=== PATIENT | male | born 1965 | race Caucasian/White ===

== ENCOUNTER 2017-01-07 15:10 | Inpatient (IN) | payer OTHER ==
[~2017-01-07] VITALS: Ht 172.7 cm; Wt 97.1 kg
[2017-01-07] MEDS ORDERED: KETOROLAC TROMETHAMINE 30 MG/ML VIAL IV STA (17:35)
[2017-01-07] MEDS ORDERED: SODIUM CHLORIDE 0.9% 1000ML 1,000 ML IV STA (17:35)
[2017-01-07] MEDS ORDERED: ONDANSETRON INJ 2 MG/ML 2 ML VIAL IV STA (17:35)
[2017-01-07] MEDS ORDERED: ALBUT/IPRATROP 3MG/0.5MG NEB 3 ML VIAL INH ONE (17:45)
--- NOTE | 2017-01-07 18:01 | EMERGENCY ROOM VISIT NOTE ---
History Report prepared by [place]: Pearl Quinones Under the Supervision of: Dr. Clark Knapp M.D. First contact with patient: 17:27 Chief Complaint: FLU LIKE SX Stated Complaint: VOMITING, FEVER, BODY ACHES, FLUE LIKE SX History of Present Illness The patient is a 51 year old male who presents to the Emergency Room with complaints of a persistent illness that began Saturday. He currently rates his discomfort as a 3/10 in severity. Per the patient's sister, the patient began getting sick Saturday and notes that it has persisted. She states that the patient has had a headache, vomiting, nausea, and a fever. The patient states that he has taken Ibuprofen and Tylenol for his Fever. The patient denies any abdominal pain or neck pain. He localizes his headache to behind his eyes and states that he has had similar headaches in the past. The patient stats that he was supposed to have a surgery this today, but states that he had to cancel due to his symptoms. Source of History: patient, family (sister) Onset: Saturday Position: other (global) Symptom Intensity: 3/10 Quality: other (illness) Timing: other (persistent) Associated Symptoms: + fevers, + headache, + nausea, + vomiting, No abdominal pain, No neck pain Review of Systems See HPI for pertinent positives & negatives. A total of 10 systems reviewed and were otherwise negative. Past Medical & Surgical Medical Problems: (1) Chronic hepatitis C (2) Depression (3) History of MRSA infection of lungs (4) History of septic embolism (5) History of SIADH (6) Nocturnal hypoxia (7) Thyroid nodule (8) Tobacco use disorder Surgical Problems: (1) History of dental surgery (2) History of laryngoscopy (3) History of left hip replacement (4) History of open reduction and internal fixation (ORIF) procedure (5) S/p alveoloplasty (6) S/p excision of tongue lesion (7) S/p thoracoscopy (8) S/P tonsillectomy (9) Status post tracheostomy Family History Cancer Gallbladder disease Heart disease Hypertension Kidney disease Kidney stones Seizures Social History Smoking Status: Never Smoker Alcohol Use: none Marital Status: Housing Status: lives alone Occupation Status: unemployed Current/Historical Medications Scheduled Bupropion (Wellbutrin Sr), 150 MG PO BID Diclofenac (Voltaren), 75 MG PO BIDM Multivitamin (Multivitamin), 1 TAB PO DAILY Omeprazole (Omeprazole), 20 MG PO BID Triamterene/Hctz (Triamterene/Hctz 37.5-25MG), 1 TAB PO DAILY Miscellaneous Medications Buprenorphine Hcl-Naloxone Hcl (Suboxone 8-2 Mg) Allergies Coded Allergies: No Known Allergies (Unverified , 01/07/17) Physical Exam Vital Signs Date Time Temp Pulse Resp B/P Pulse Ox O2 Delivery O2 Flow Rate FiO2 01/07/17 19:30 124/62 01/07/17 19:10 124 15 91 01/07/17 19:00 109/74 01/07/17 18:52 93 Nasal Cannula 4.0 01/07/17 18:48 39.5 128 20 114/72 81 Room Air 01/07/17 18:48 114/72 01/07/17 18:40 132 18 83 01/07/17 18:36 136 22 138/91 88 Nebulizer 15.0 01/07/17 18:34 138/91 01/07/17 18:30 135/75 01/07/17 18:11 129 01/07/17 18:10 129 20 95 01/07/17 18:00 116/81 01/07/17 17:54 97 Room Air 01/07/17 17:54 97 Room Air 01/07/17 15:23 39.3 135 20 139/79 96 Room Air Physical Exam GENERAL: Patient is a healthy-appearing well-nourished HEAD: Normocephalic atraumatic EYES: Ocular movements intact pupils equal and react to light OROPHARYNX mucous membranes are moist no exudates present no erythema or edema present NECK: No evidence of meningitis or encephalitis on exam. Supple no nuchal rigidity CHEST: Good equal expansion LUNGS: Clear and equal to auscultation CARDIAC: Normal S1 and S2 ABDOMEN: Soft nontender no guarding BACK: No CVA tenderness EXTREMITIES: No pain upon palpation normal muscle strength in all groups no clubbing cyanosis or edema NEURO: Patient is following commands is answering questions appropriately. Alert and oriented x3 Cranial Nerves 2-12 grossly intact Medical Decision & Procedures ER Provider Diagnostic Interpretation: X-ray results as stated below per interpretation by me and the radiologist: CHEST ONE VIEW PORTABLE CLINICAL HISTORY: Pt c/o cough dyspnea COMPARISON STUDY: 04/05/2013 FINDINGS: Development of a parenchymal infiltrate in the right midlung. Potential parenchymal infiltrative changes in medial left base. Lungs otherwise appear clear. IMPRESSION: Bibasilar parenchymal infiltrative change Electronically signed by: Nithin Fiore M.D. 01/07/2017 6:04 PM Dictated Date/Time: 01/07/2017 6:04 PM Laboratory Results Test 01/07/17 18:12 01/07/17 18:31 Influenza Type A (RT-PCR) Neg for Influ A (NEG) Influenza Type A Antigen Neg for Influ A (NEG) Influenza Type B Antigen Neg for Influ B (NEG) Influenza Type B (RT-PCR) Neg for Influ B (NEG) Immature Granulocyte % (Auto) 0.3 % White Blood Count 10.89 K/uL (4.8-10.8) Red Blood Count 4.51 M/uL (4.7-6.1) Hemoglobin 13.2 g/dL (14.0-18.0) Hematocrit 38.5 % (42-52) Mean Corpuscular Volume 85.4 fL (80-100) Mean Corpuscular Hemoglobin 29.3 pg (25-34) Mean Corpuscular Hemoglobin Concent 34.3 g/dl (32-36) Platelet Count 191 K/uL (130-400) Mean Platelet Volume 10.0 fL (7.4-10.4) Neutrophils (%) (Auto) 82.3 % Lymphocytes (%) (Auto) 12.5 % Monocytes (%) (Auto) 4.9 % Eosinophils (%) (Auto) 0.0 % Basophils (%) (Auto) 0.0 % Neutrophils # (Auto) 8.97 K/uL (1.4-6.5) Lymphocytes # (Auto) 1.36 K/uL (1.2-3.4) Monocytes # (Auto) 0.53 K/uL (0.11-0.59) Eosinophils # (Auto) 0.00 K/uL (0-0.5) Basophils # (Auto) 0.00 K/uL (0-0.2) Immature Granulocyte # (Auto) 0.03 K/uL (0.00-0.02) Prothrombin Time 11.7 SECONDS (9.0-12.0) Prothromb Time International Ratio 1.1 (0.9-1.1) Activated Partial Thromboplast Time 29.9 SECONDS (21.0-31.0) Partial Thromboplastin Ratio 1.2 Labs reviewed by ED physician. Medications Administered Medications (Trade) Dose Ordered Sig/Adelita Route Start Time Stop Time Status Last Admin Dose Admin Sodium Chloride (Nss 1000ml) 1,000 ml @ 999 mls/hr Q1H1M STAT IV 01/07/17 17:35 01/07/17 18:35 DC 01/07/17 17:52 999 MLS/HR Ketorolac Tromethamine (Toradol Inj) 30 mg NOW STAT IV 01/07/17 17:35 01/07/17 17:38 DC 01/07/17 17:52 30 MG Ondansetron HCl (Zofran Inj) 4 mg NOW STAT IV 01/07/17 17:35 01/07/17 17:38 DC 01/07/17 17:52 4 MG Albuterol/ Ipratropium (Duoneb) 12 ml ONE ONCE INH 01/07/17 17:45 01/07/17 17:46 DC 01/07/17 17:52 12 ML Doxycycline Hyclate (Vibramycin Cap) 100 mg ONE STAT PO 01/07/17 18:07 01/07/17 18:13 DC 01/07/17 19:23 100 MG Acetaminophen (Tylenol Tab) 1,000 mg NOW STAT PO 01/07/17 18:48 01/07/17 18:49 DC 01/07/17 19:24 1,000 MG Piperacillin Sod/ Tazobactam Sod (Zosyn Iv) 4.5 gm NOW STAT IV 01/07/17 19:17 01/07/17 19:19 DC 01/07/17 20:25 4.5 GM Levofloxacin (Levaquin / D5W) 750 mg NOW ONCE IV 01/07/17 19:30 01/07/17 19:31 DC 01/07/17 20:24 750 MG ECG Rate (beats per minute): 118 Rhythm: sinus tachycardia Findings: RBBB, no acute ischemic change, no ectopy Comparison ECG Date: 04/05/13 Change: EKG Change: When compared to EKG done on 04/05/13 Right Bundle Branch Block is new. ED Course 1731: Past medical records reviewed. The patient was evaluated in room B5. A complete history and physical examination was performed. 1735: Ordered Zofran Inj 4 mg IV, Toradol Inj 30 mg IV, Sodium Chloride 1000 ml @ 999 mls/hr IV. 1745: Ordered Duoneb 12 ml INH. 180: Ordered Vibramycin Cap 100 mg PO. 1848: Ordered Tylenol Tab 1000 mg PO. 1900: I reevaluated the patient and he is resting comfortably. I discussed the exam findings with him and I discussed the treatment plan. He verbalized complete understanding and agreement. He will be evaluated for further treatment. 1916: Ordered Zosyn IV 4.5 gm IV. 1927: I discussed the patients case with Catrachito De Santiago. He is going to evaluate the patient for further treatment. 1929: Ordered Levofloxacin 750 mg IV. Medical Decision Differential diagnosis: Etiologies such as viral syndrome, otitis, pharyngitis, pneumonia, influenza, meningitis, urinary tract infection, sepsis, bacteremia, as well as others were entertained. This is a 51-year-old male who presents emergency department complaining of shortness of breath. The patient does appear to have pneumonia on his chest x- ray. I did discuss case with the hospitalist service who agreed to admit the patient. Patient was pancultured and started on antibiotics. Patient family were in agreement with treatment plan. Consults Time Called: 1914 Consulting Physician: Catrachito De Santiago Returned Call: 1927 I discussed the patients case with Catrachito De Santiago. He is going to evaluate the patient for further treatment. Impression Primary Impression: Pneumonia Scribe Attestation The scribe's documentation has been prepared under my direction and personally reviewed by me in its entirety. I confirm that the note above accurately reflects all work, treatment, procedures, and medical decision making performed by me. Departure Information Dispostion Being Evaluated By Hospitalist Referrals Nithin Cifuentes M.D. (PCP) Problem Qualifiers Primary Impression: Pneumonia Pneumonia type: due to unspecified organism Laterality: unspecified laterality Lung location: unspecified part of lung Qualified Codes: J18.9 - Pneumonia, unspecified organism
--- NOTE | 2017-01-07 18:05 | DIAGNOSTIC IMAGING REPORT ---
CHEST ONE VIEW PORTABLE CLINICAL HISTORY: Pt c/o cough dyspnea COMPARISON STUDY: 04/05/2013 FINDINGS: Development of a parenchymal infiltrate in the right midlung. Potential parenchymal infiltrative changes in medial left base. Lungs otherwise appear clear. IMPRESSION: Bibasilar parenchymal infiltrative change Electronically signed by: Nithin Fiore M.D. 01/07/2017 6:04 PM Dictated Date/Time: 01/07/2017 6:04 PM
[2017-01-07] MEDS ORDERED: DOXYCYCLINE HYCLATE 100 MG CAP PO STA (18:07)
[2017-01-07] MEDS ORDERED: MULT-506 PO (18:39)
[2017-01-07] MEDS ORDERED: BUPR-79 PO (18:39)
[2017-01-07] MEDS ORDERED: TRIATAB3 PO (18:39)
[2017-01-07] MEDS ORDERED: DICL-201 PO (18:39)
[2017-01-07 18:44] LABS: COMPLETE YES; HEMATOCRIT 38.5 % (42-52); IG% 0.3 %; LYMPH % 12.5 %; LYMPH ABS # 1.36 K/uL (1.2-3.4); MEAN CELL VOLUME 85.4 fL (80-100); MEAN CORPUSCULAR HEMOGLOBIN 29.3 pg (25-34); MEAN CORPUSCULAR HGB CONC 34.3 g/dl (32-36); MONO % 4.9 %; NEUT % 82.3 %; PLATELET COUNT 191 K/uL (130-400); RED BLOOD COUNT 4.51 M/uL (4.7-6.1); WHITE BLOOD COUNT 10.89 K/uL (4.8-10.8)
[2017-01-07] MEDS ORDERED: ACETAMINOPHEN 500 MG TAB PO STA (18:48)
[2017-01-07 19:05] LABS: BUN/CREATININE RATIO 14.4 (10-20); CALCIUM 8.3 mg/dl (8.5-10.1); CREATININE 1.4 mg/dl (0.60-1.40); POTASSIUM 3.3 mmol/L (3.5-5.1)
[2017-01-07 19:08] LABS: ALB/GLOB RATIO 0.9 (0.9-2)
[2017-01-07] MEDS ORDERED: PIPERACILLIN/TAZOBACTAM 4.5 GM/100ML D5W IV STA (19:17)
[2017-01-07] MEDS ORDERED: LEVAQUIN 750MG / 150ML D5W IV ONE (19:30)
[2017-01-07] MEDS ORDERED: ONDANSETRON INJ 2 MG/ML 2 ML VIAL IV PRN (19:45)
--- NOTE | 2017-01-07 19:51 | History and Physical ---
History & Physical Date & Time of Service: Jan 07, 2017 at 19:51 . Chief Complaint: Fever, cough, shortness of breath . Primary Care Physician: Nithin Cifuentes M.D. . History of Present Illness Source: patient, clinic records, hospital records 51-year-old male followed by Dr. Cifuentes. History of hypertension and hepatitis C. Prolonged critical illness in 2012 due to sepsis from septic pulmonary emboli. Developed fever and cough about 3 days prior to admission. Cough productive of green sputum. Now experiencing fever, chills, sweats, worsening dyspnea. Chest pain with coughing. Some nausea without emesis; no diarrhea. . Past Medical/Surgical History Chronic and Resolved Medical Problems: (1) Chronic hepatitis C Status: Chronic (2) Depression Status: Chronic (3) History of MRSA infection of lungs Status: Chronic (4) History of septic embolism Status: Chronic (5) History of SIADH Status: Chronic (6) Nocturnal hypoxia Status: Chronic (7) Thyroid nodule Status: Chronic (8) Tobacco use disorder Status: Chronic Surgical Problems: (1) History of dental surgery Status: Chronic (2) History of laryngoscopy Permanent Comment: laryngoscopy removal tumor microscope and reconstruction Status: Chronic (3) History of left hip replacement Status: Resolved (4) History of open reduction and internal fixation (ORIF) procedure Status: Chronic (5) S/p alveoloplasty Status: Chronic (6) S/p excision of tongue lesion Status: Chronic (7) S/p thoracoscopy Permanent Comment: thoracoscopy surgical partial pulmonary decortication Status: Chronic (8) S/P tonsillectomy Status: Chronic (9) Status post tracheostomy Status: Chronic . Family History Cancer Gallbladder disease Heart disease Hypertension Kidney disease Kidney stones Seizures Social History Smoking Status: Current Every Day Smoker Alcohol Use: in past Marital Status: Housing status: lives with family Occupational Status: unemployed Immunizations History of Influenza Vaccine: Unknown History of Tetanus Vaccine?: Unknown History of Pneumococcal: Unknown History of Hepatitis B Vaccine: Unknown Multi-Drug Resistant Organisms History of MDRO: Yes Type of MDRO: MRSA Allergies Coded Allergies: No Known Allergies (Unverified , 01/07/17) Home Medications Scheduled Bupropion (Wellbutrin Sr), 150 MG PO BID Diclofenac (Voltaren), 75 MG PO BIDM Multivitamin (Multivitamin), 1 TAB PO DAILY Omeprazole (Omeprazole), 20 MG PO BID Triamterene/Hctz (Triamterene/Hctz 37.5-25MG), 1 TAB PO DAILY Miscellaneous Medications Buprenorphine Hcl-Naloxone Hcl (Suboxone 8-2 Mg) Review of Systems Constitutional: + chills, + fatigue, + fever, + sweats, No weight loss Eyes: No diplopia, No worsening of vision ENT: + nasal symptoms, + sore throat, No hearing loss Respiratory: + cough, + shortness of breath, + sputum, + wheezing Cardiovascular: No chest pain, No edema Abdomen: + nausea, No GI bleeding, No diarrhea, No vomiting Musculoskeletal: + muscle pain, + problem reported (chronic back pain) Genitourinary - Male: No dysuria, No hematuria Endocrine: + fatigue, No excessive thirst, No excessive urination Hematologic / Lymphatic: No abnormal bleeding/bruising, No swollen lymph nodes Integumentary: No new/changing skin lesions, No rash Physical Exam Vital Signs Date Time Temp Pulse Resp B/P Pulse Ox O2 Delivery O2 Flow Rate FiO2 01/07/17 18:52 93 Nasal Cannula 4.0 01/07/17 18:48 39.5 128 20 114/72 81 Room Air 01/07/17 18:36 136 22 138/91 88 Nebulizer 15.0 01/07/17 18:11 129 01/07/17 17:54 97 Room Air 01/07/17 17:54 97 Room Air 01/07/17 15:23 39.3 135 20 139/79 96 Room Air General Appearance: WD/WN, + moderate distress Head: normocephalic, atraumatic Eyes: normal inspection, PERRL, EOMI, sclerae normal ENT: + pertinent finding (edentulous, pharyngeal erythema) Neck: supple, no adenopathy, thyroid normal, no JVD, trachea midline, + pertinent finding (healed tracheostomy scar) Respiratory/Chest: + accessory muscle use, + rhonchi, + wheezing Cardiovascular: regular rate, rhythm, no edema, no gallop, no JVD, no murmur, + tachycardia Abdomen/GI: normal bowel sounds, non tender, soft, no organomegaly, no pulsatile mass Extremities/Musculoskelatal: normal inspection, no calf tenderness, no pedal edema Neurologic/Psych: health and wellness instructor II-XII nml as tested (PERRL, EOMI, no facial palsy, no dysarthria), alert, oriented x 3 Skin: no rash, + diaphoresis Lymphatic: no adenopathy Diagnostics Laboratory Results Results Past 24 Hours Test 01/07/17 18:12 01/07/17 18:31 Range/Units Influenza Type A Antigen Neg for Influ A NEG Influenza Type B Antigen Neg for Influ B NEG White Blood Count 10.89 4.8-10.8 K/uL Red Blood Count 4.51 4.7-6.1 M/uL Hemoglobin 13.2 14.0-18.0 g/dL Hematocrit 38.5 42-52 % Mean Corpuscular Volume 85.4 80-100 fL Mean Corpuscular Hemoglobin 29.3 25-34 pg Mean Corpuscular Hemoglobin Concent 34.3 32-36 g/dl Platelet Count 191 130-400 K/uL Mean Platelet Volume 10.0 7.4-10.4 fL Neutrophils (%) (Auto) 82.3 % Lymphocytes (%) (Auto) 12.5 % Monocytes (%) (Auto) 4.9 % Eosinophils (%) (Auto) 0.0 % Basophils (%) (Auto) 0.0 % Neutrophils # (Auto) 8.97 1.4-6.5 K/uL Lymphocytes # (Auto) 1.36 1.2-3.4 K/uL Monocytes # (Auto) 0.53 0.11-0.59 K/uL Eosinophils # (Auto) 0.00 0-0.5 K/uL Basophils # (Auto) 0.00 0-0.2 K/uL RDW Standard Deviation 40.7 36.4-46.3 fL RDW Coefficient of Variation 13.1 11.5-14.5 % Immature Granulocyte % (Auto) 0.3 % Immature Granulocyte # (Auto) 0.03 0.00-0.02 K/uL Sodium Level 137 136-145 mmol/L Potassium Level 3.3 3.5-5.1 mmol/L Chloride Level 97 98-107 mmol/L Carbon Dioxide Level 30 21-32 mmol/L Anion Gap 10.0 3-11 mmol/L Blood Urea Nitrogen 20 7-18 mg/dl Creatinine 1.40 0.60-1.40 mg/dl Est Creatinine Clear Calc Drug Dose 70.0 ml/min Estimated GFR () 67.4 Estimated GFR (Non- 58.2 BUN/Creatinine Ratio 14.4 10-20 Random Glucose 113 70-99 mg/dl Calcium Level 8.3 8.5-10.1 mg/dl Total Bilirubin 1.1 0.2-1 mg/dl Aspartate Amino Transf (AST/SGOT) 33 15-37 U/L Alanine Aminotransferase (ALT/SGPT) 40 12-78 U/L Alkaline Phosphatase 89 45-117 U/L Total Protein 7.8 6.4-8.2 gm/dl Albumin 3.6 3.4-5.0 gm/dl Globulin 4.2 2.5-4.0 gm/dl Albumin/Globulin Ratio 0.9 0.9-2 Microbiology Results 01/07/17 Blood Culture, Evelyn Batch Pending 01/07/17 Blood Culture, Evelyn Batch Pending Diagnostic Radiology CHEST ONE VIEW PORTABLE CLINICAL HISTORY: Pt c/o cough dyspnea COMPARISON STUDY: 04/05/2013 FINDINGS: Development of a parenchymal infiltrate in the right midlung. Potential parenchymal infiltrative changes in medial left base. Lungs otherwise appear clear. IMPRESSION: Bibasilar parenchymal infiltrative change Electronically signed by: Nithin Fiore M.D. 01/07/2017 6:04 PM CHEST CTA for PULMONARY ARTERIES CT DOSE: 443.61 mGy.cm HISTORY: Chest pain dyspnea. Pneumonia. TECHNIQUE: Multiaxial CT images of the chest were performed following the intravenous administration of contrast to evaluate the pulmonary arteries. Maximal intensity projection images were also obtained. COMPARISON STUDY: None. FINDINGS: There is a normal caliber thoracic aorta with no evidence for dissection. There is no evidence for pulmonary embolus. Moderate mediastinal and hilar julia change is present. Superior mediastinal nodes measure 1.5 cm. Nodes measuring 12 mm are present bilaterally there are parenchymal infiltrate or consolidative changes right midlung. There is a 6 mm parenchymal nodule right upper lung. There are consolidative parenchymal infiltrates involving the right and to lesser extent left lung base. Limited evaluation the upper abdomen is unremarkable. IMPRESSION: 1. Study is negative for pulmonary embolus. 2. Consolidative infiltrates right midlung, right base, and to lesser extent left base. 3. mediastinal and hilar adenopathy is considered significant. Although it is potentially reactive, a follow-up CT at appropriate time interval is felt to be mandatory to exclude an underlying neoplastic process. Electronically signed by: Nithin Fiore M.D. 01/07/2017 10:30 PM . EKG EKG performed at 17:[address] at 120 / minute, RBBB, NSSTTWA's. RBBB old- present on tracing in clinic 05/08/16. . Impression Assessment and Plan PNEUMONIA / SEPSIS Acutely ill- fever, tachycardia. Meets criteria for sepsis per 2001 definition and current CMS guidelines. Not hypotensive. Serum lactate 0.83. Received IV fluid resuscitation in ED. Blood cultures obtained. Check sputum gram stain, C&S. Received IV levofloxacin and piperacillin / tazobactam in ED which will be continued. Check nasal MRSA screen. Add MRSA coverage if MRSA screen positive. ACUTE HYPOXIC RESPIRATORY FAILURE Tachypneic, using accessory muscles of respiration. RR as high as 26. O2 sats as low as 81% on RA. Supplemental O2 as needed. Levalbuterol / ipratropium nebs for bronchospasm. HYPOKALEMIA Serum K 3.3. Hypokalemia probably due to HCTZ. IV repletion (lactated Ringer's). Follow. HYPERTENSION Hold triamterene PAIN MANAGEMENT Continue usual dose of buprenorphine-naloxone. HEPATITIS C Followed by GI. Has not received antiviral Rx thus far. VTE PROPHYLAXIS Moderately high risk for VTE. SQ enoxaparin. Ambulate as able. RESUSCITATION STATUS Full code. DISPOSITION Admit to Telemetry Unit. Expected discharge to home. Family Medicine follow-up with Dr. Cifuentes. . VTE Prophylaxis VTE Risk Assessment Done? Y/N: Yes Risk Level: Moderate Given or contraindicated: Enoxaparin (Lovenox)SQ
[2017-01-07 20:00] LABS: INR 1.1 (0.9-1.1); PARTIAL THROMBOPLASTIN RATIO 1.2; PROTHROMBIN TIME (PATIENT) 11.7 SECONDS (9.0-12.0)
[2017-01-07] MEDS ORDERED: SODIUM CHLORIDE 0.9% 1000ML 1,000 ML IV SCH (20:00)
[2017-01-07] MEDS ORDERED: BUPR8MIS (20:36)
[2017-01-07 20:56] LABS: INFLUENZA A PCR Neg for Influ A (NEG); INFLUENZA B PCR Neg for Influ B (NEG)
[2017-01-07 21:05] VITALS: BP 122/71; PULSE 107; TEMP 37.5; O2SAT 90; Ht 172.7 cm; Wt 97.1 kg
[2017-01-07] MEDS ORDERED: LACTATED RINGER'S 1000ML 1,000 ML IV SCH (22:00)
[2017-01-07] MEDS ORDERED: OPTIRAY 320 IV PRN (22:30)
--- NOTE | 2017-01-07 22:32 | DIAGNOSTIC IMAGING REPORT ---
CHEST CTA for PULMONARY ARTERIES CT DOSE: 443.61 mGy.cm HISTORY: Chest pain dyspnea. Pneumonia. TECHNIQUE: Multiaxial CT images of the chest were performed following the intravenous administration of contrast to evaluate the pulmonary arteries. Maximal intensity projection images were also obtained. COMPARISON STUDY: None. FINDINGS: There is a normal caliber thoracic aorta with no evidence for dissection. There is no evidence for pulmonary embolus. Moderate mediastinal and hilar julia change is present. Superior mediastinal nodes measure 1.5 cm. Nodes measuring 12 mm are present bilaterally there are parenchymal infiltrate or consolidative changes right midlung. There is a 6 mm parenchymal nodule right upper lung. There are consolidative parenchymal infiltrates involving the right and to lesser extent left lung base. Limited evaluation the upper abdomen is unremarkable. IMPRESSION: 1. Study is negative for pulmonary embolus. 2. Consolidative infiltrates right midlung, right base, and to lesser extent left base. 3. mediastinal and hilar adenopathy is considered significant. Although it is potentially reactive, a follow-up CT at appropriate time interval is felt to be mandatory to exclude an underlying neoplastic process. Electronically signed by: Nithin Fiore M.D. 01/07/2017 10:30 PM Dictated Date/Time: 01/07/2017 10:26 PM
[2017-01-07] MEDS ORDERED: BUPRENORPHINE/NALOXONE 2/0.5MG 1 TAB PO ONE (23:29)
[2017-01-07 23:30] LABS: URINE APPEARANCE CLEAR (CLEAR); URINE BILIRUBIN NEG (NEG); URINE COLOR YELLOW; URINE NITRITE NEG (NEG); URINE SPECIFIC GRAVITY 1.031 (1.000-1.030); UROBILINOGEN NEG (NEG)
[2017-01-07] MEDS ORDERED: LEVALBUTEROL 0.63MG/3 ML NEB INH PRN (23:30)
[2017-01-07 23:31] LABS: MANUAL MICROSCOPIC REQUIRED? NO; REVIEW REQ? NO
[2017-01-07] MEDS ORDERED: PIPERACILL/TAZOBAC CONSULT ACTIVE PRN (23:45)
[2017-01-07] MEDS ORDERED: OMEP20TA PO (23:55)
[2017-01-08] VITALS (17 sets, daily range): BP systolic 98–141; BP diastolic 58–94; PULSE 74–103; TEMP 36.6–37.3; O2SAT 88–96
[2017-01-08] MEDS: ACETAMINOPHEN 500 MG TAB PO PRN ×3 (00:20→16:52)
[2017-01-08] MEDS: PIPERACILL/TAZOBAC IV 3.375 GM in DEXTROSE 5% 100ML IV SCH ×3 (00:20→16:26)
[2017-01-08] MEDS: D5W AND LACTATED RINGERS 1,000 ML IV SCH ×4 (00:21→20:39)
[2017-01-08] MEDS ORDERED: PIPERACILL/TAZOBAC IV 4.5 GM in DEXTROSE 5% 100ML 100 ML IV SCH (02:00)
[2017-01-08] MEDS ORDERED: NURSING DECISION MEDICATION ORDER SCH (04:15)
[2017-01-08] MEDS ORDERED: SODIUM CHLORIDE 0.65% NA SOLN 45 ML (OCEAN) PRN (04:30)
[2017-01-08] MEDS: IPRATROPIUM BROMIDE NEB SOLN 0.02% 2.5 ML VIAL INH SCH ×4 (07:04→20:40)
[2017-01-08] MEDS: LEVALBUTEROL 1.25MG/0.5ML NEB INH SCH ×4 (07:04→20:40)
[2017-01-08] MEDS: BuPROPion SR 150 MG TABCR PO SCH ×2 (07:47→20:38)
[2017-01-08] MEDS: MULTIVITAMIN TAB PO SCH (07:47)
[2017-01-08] MEDS: ENOXAPARIN 40 MG/0.4 ML SYR SC SCH (07:48)
[2017-01-08] MEDS: PANTOprazole SOD 40 MG TAB PO SCH ×2 (07:48→20:39)
[2017-01-08] MEDS ORDERED: PNEUMOCOCCAL POLYSACCHARIDES 25 MCG/0.5 ML VIAL/SYR IM. ONE (08:00)
[2017-01-08] MEDS ORDERED: INFLUENZA VIRUS QUAD VACCINE 0.5 ML SYR IM. ONE (08:00)
[2017-01-08] MEDS ORDERED: PNEUMOCOCCAL ADMINISTRATION CHARGE ONE (08:00)
[2017-01-08] MEDS ORDERED: INFLUENZA ADMINISTRATION CHARGE ONE (08:00)
[2017-01-08] MEDS: BUPRENORPHINE/NALOXONE 2/0.5MG 1 TAB PO SCH ×2 (08:25→20:39)
[2017-01-08 10:53] LABS: HEMATOCRIT 32.9 % (42-52); MEAN CELL VOLUME 86.6 fL (80-100); MEAN CORPUSCULAR HEMOGLOBIN 28.9 pg (25-34); MEAN CORPUSCULAR HGB CONC 33.4 g/dl (32-36); MEAN PLATELET VOLUME 9.9 fL (7.4-10.4); PLATELET COUNT 151 K/uL (130-400); WHITE BLOOD COUNT 11.66 K/uL (4.8-10.8)
[2017-01-08] MEDS ORDERED: POTASSIUM CHLORIDE 20 MEQ TABCR PO ONE (11:15)
[2017-01-08 11:32] LABS: BUN/CREATININE RATIO 13.3 (10-20); CALCIUM 7.8 mg/dl (8.5-10.1); CREATININE 1.4 mg/dl (0.60-1.40); POTASSIUM 3.4 mmol/L (3.5-5.1)
[2017-01-08 11:35] LABS: ALB/GLOB RATIO 0.8 (0.9-2)
--- NOTE | 2017-01-08 16:13 | Progress Note ---
Medicine Progress Note Date & Time of Visit: Jan 08, 2017 at 15:55. Subjective Pt was seen and examined sitting in bed with no distress watching sport with at bedside Pt said that he feels much better today he said that the cough improved denies any fever, chest pain, palpitation. Objective Last 8 Hrs Date Time Temp Pulse Resp B/P Pulse Ox O2 Delivery O2 Flow Rate FiO2 01/08/17 15:38 36.6 85 17 119/67 93 Nasal Cannula 5.0 01/08/17 12:00 95 Nasal Cannula 5.0 01/08/17 11:32 36.8 75 18 98/58 96 01/08/17 11:05 97 18 91 Nasal Cannula 5.0 01/08/17 08:00 92 Nasal Cannula 5.0 Physical Exam: General- No acute respiratory distress Head- atraumatic Eyes- PERRL, EOMI ENT- oropharynx clear Neck- supple, no JVD Lungs- Coarse BS Heart- regular rhythm; no murmur Abdomen- normal bowel sounds, soft Extremities- no calf tenderness Neuro- alert, oriented x 3; PERRL, EOMI; no facial palsy Skin- warm & dry Laboratory Results: Last 24 Hours Test 01/07/17 18:12 01/07/17 18:31 01/07/17 20:20 01/07/17 23:20 Influenza Type A (RT-PCR) Neg for Influ A Influenza Type A Antigen Neg for Influ A Influenza Type B Antigen Neg for Influ B Influenza Type B (RT-PCR) Neg for Influ B White Blood Count 10.89 K/uL Red Blood Count 4.51 M/uL Hemoglobin 13.2 g/dL Hematocrit 38.5 % Mean Corpuscular Volume 85.4 fL Mean Corpuscular Hemoglobin 29.3 pg Mean Corpuscular Hemoglobin Concent 34.3 g/dl Platelet Count 191 K/uL Mean Platelet Volume 10.0 fL Neutrophils (%) (Auto) 82.3 % Lymphocytes (%) (Auto) 12.5 % Monocytes (%) (Auto) 4.9 % Eosinophils (%) (Auto) 0.0 % Basophils (%) (Auto) 0.0 % Neutrophils # (Auto) 8.97 K/uL Lymphocytes # (Auto) 1.36 K/uL Monocytes # (Auto) 0.53 K/uL Eosinophils # (Auto) 0.00 K/uL Basophils # (Auto) 0.00 K/uL RDW Standard Deviation 40.7 fL RDW Coefficient of Variation 13.1 % Immature Granulocyte % (Auto) 0.3 % Immature Granulocyte # (Auto) 0.03 K/uL Prothrombin Time 11.7 SECONDS Prothromb Time International Ratio 1.1 Activated Partial Thromboplast Time 29.9 SECONDS Partial Thromboplastin Ratio 1.2 Sodium Level 137 mmol/L Potassium Level 3.3 mmol/L Chloride Level 97 mmol/L Carbon Dioxide Level 30 mmol/L Anion Gap 10.0 mmol/L Blood Urea Nitrogen 20 mg/dl Creatinine 1.40 mg/dl Est Creatinine Clear Calc Drug Dose 70.0 ml/min Estimated GFR () 67.4 Estimated GFR (Non- 58.2 BUN/Creatinine Ratio 14.4 Random Glucose 113 mg/dl Calcium Level 8.3 mg/dl Total Bilirubin 1.1 mg/dl Aspartate Amino Transf (AST/SGOT) 33 U/L Alanine Aminotransferase (ALT/SGPT) 40 U/L Alkaline Phosphatase 89 U/L Total Protein 7.8 gm/dl Albumin 3.6 gm/dl Globulin 4.2 gm/dl Albumin/Globulin Ratio 0.9 Bedside Lactic Acid Venous 0.83 mmol/L Urine Color YELLOW Urine Appearance CLEAR Urine pH 6.0 Urine Specific [place] 1.031 Urine Protein NEG Urine Glucose (UA) NEG Urine Ketones NEG Urine Occult Blood NEG Urine Nitrite NEG Urine Bilirubin NEG Urine Urobilinogen NEG Urine Leukocyte Esterase NEG Test 01/08/17 00:00 White Blood Count 11.66 K/uL Red Blood Count 3.80 M/uL Hemoglobin 11.0 g/dL Hematocrit 32.9 % Mean Corpuscular Volume 86.6 fL Mean Corpuscular Hemoglobin 28.9 pg Mean Corpuscular Hemoglobin Concent 33.4 g/dl RDW Standard Deviation 43.4 fL RDW Coefficient of Variation 13.7 % Platelet Count 151 K/uL Mean Platelet Volume 9.9 fL Sodium Level 139 mmol/L Potassium Level 3.4 mmol/L Chloride Level 102 mmol/L Carbon Dioxide Level 31 mmol/L Anion Gap 6.0 mmol/L Blood Urea Nitrogen 19 mg/dl Creatinine 1.40 mg/dl Est Creatinine Clear Calc Drug Dose 69.8 ml/min Estimated GFR () 67.4 Estimated GFR (Non- 58.2 BUN/Creatinine Ratio 13.3 Random Glucose 105 mg/dl Calcium Level 7.8 mg/dl Total Bilirubin 1.3 mg/dl Aspartate Amino Transf (AST/SGOT) 21 U/L Alanine Aminotransferase (ALT/SGPT) 29 U/L Alkaline Phosphatase 58 U/L Total Protein 6.0 gm/dl Albumin 2.7 gm/dl Globulin 3.3 gm/dl Albumin/Globulin Ratio 0.8 Date/Time Source Procedure Growth Status 01/07/17 20:13 Blood Blood Culture Pending Received 01/07/17 20:07 Blood Blood Culture Pending Received 01/08/17 00:30 Nasal MRSA DNA Surveillance Screen - Final Specimen Negative for MRSA by DNA Probe Complete 01/08/17 12:15 Sputum Expectorated Sputum Gram Stain Pending Received 01/08/17 12:15 Sputum Expectorated Sputum Sputum Culture Pending Received Assessment & Plan PNEUMONIA Acutely ill- fever, tachycardia. Meets criteria for sepsis Serum lactate normal. CXR showed showed bibasilar parenchymal infiltrative change Blood and sputum culture pending Continue IV levofloxacin and piperacillin / tazobactam Flu test negative ACUTE HYPOXIC RESPIRATORY FAILURE Tachypneic, using accessory muscles of respiration on admission Secondary to Pneumonia CTA chest showed consolidative infiltrates right midlung, right base, and to lesser extent left base. Negative for PE O2 sats as low as 81% on RA. Continue supplemental O2 as needed. Levalbuterol / ipratropium nebs for bronchospasm. HYPOKALEMIA Serum K 3.3. Hypokalemia probably due to HCTZ. K replaced Check BMP in am. HYPERTENSION Hold triamterene Stable MEDIASTINAL AND HILAR ADENOPATHY outpatient follow-up CT at appropriate time interval PAIN MANAGEMENT Continue usual dose of buprenorphine-naloxone. HEPATITIS C Followed by GI. Has not received antiviral Rx thus far. VTE PROPHYLAXIS Moderately high risk for VTE. SQ enoxaparin. Ambulate as able. RESUSCITATION STATUS Full code. DISPOSITION Admit to Telemetry Unit. Expected discharge to home. Family Medicine follow-up with Dr. Cifuentes. Current Inpatient Medications: Current Inpatient Medications Medications (Trade) Dose Ordered Sig/Adelita Route Start Time Stop Time Status Last Admin Dose Admin Enoxaparin Sodium (Lovenox Inj) 40 mg DAILY SC 01/08/17 09:00 02/07/17 08:59 01/08/17 07:48 40 MG Ondansetron HCl (Zofran Inj) 4 mg Q6H PRN IV 01/07/17 19:45 02/06/17 19:44 Ioversol (Optiray 320) 112 ml UD PRN IV 01/07/17 22:30 01/11/17 22:29 Bupropion HCl (Wellbutrin-Sr Tab) 150 mg BID PO 01/08/17 09:00 02/07/17 08:59 01/08/17 07:47 150 MG Multivitamins (Multivitamin Tab) 1 tab DAILY PO 01/08/17 09:00 02/07/17 08:59 01/08/17 07:47 1 TAB Buprenorphine/ Naloxone (Suboxone Tab) 4 tab BID PO 01/08/17 09:00 02/07/17 08:59 01/08/17 08:25 4 TAB Ipratropium [place] (Atrovent 0.02% 0.5MG/2.5ML Neb) 0.5 mg QIDR INH 01/08/17 08:00 02/07/17 07:59 01/08/17 15:36 0.5 MG Levalbuterol (Xopenex 1.25MG/ 0.5ML Neb) 1.25 mg QIDR INH 01/08/17 08:00 02/07/17 07:59 01/08/17 15:36 1.25 MG Levalbuterol 0.63 mg 0.63 mg Q2H PRN INH 01/07/17 23:30 02/06/17 23:29 Dextrose/Lactated Ringer's 1,000 ml @ 150 mls/hr Q6H40M IV 01/07/17 23:45 02/06/17 23:44 01/08/17 12:52 150 MLS/HR Levofloxacin 750 mg/Prmx 150 ml @ 100 mls/hr DAILY@2000 IV 01/08/17 20:00 01/15/17 19:59 Piperacillin Sod/ Tazobactam Sod/ Dextrose (Zosyn Iv/D5 100ml) 115 ml @ 28.75 mls/ hr Q8H IV 01/08/17 00:00 01/15/17 00:00 01/08/17 07:57 28.75 MLS/HR Piperacillin Sod/ Tazobactam Sod (Consult) 1 ea UD PRN N/A 01/07/17 23:45 02/06/17 23:44 Pantoprazole Sodium (Protonix Tab) 40 mg BID PO 01/08/17 09:00 02/07/17 08:59 01/08/17 07:48 40 MG Acetaminophen (Tylenol Tab) 1,000 mg Q8 PRN PO 01/08/17 00:00 02/07/17 00:00 01/08/17 07:58 1,000 MG Sodium Chloride ([place] Nasal [place]) 1 sprays PRN PRN NA 01/08/17 04:30 02/07/17 04:29
[2017-01-08] MEDS: LEVOFLOXACIN / D5W 750 MG in PREMIXED IN D5W 150 ML IV SCH (20:38)
[2017-01-09] VITALS (14 sets, daily range): BP systolic 101–136; BP diastolic 63–90; PULSE 69–96; TEMP 36.6–37.2; O2SAT 90–97
[2017-01-09] MEDS: PIPERACILL/TAZOBAC IV 3.375 GM in DEXTROSE 5% 100ML IV SCH ×3 (00:16→16:42)
[2017-01-09] MEDS: ACETAMINOPHEN 500 MG TAB PO PRN ×2 (01:11→16:42)
[2017-01-09] MEDS: D5W AND LACTATED RINGERS 1,000 ML IV SCH ×3 (03:13→18:31)
[2017-01-09 06:04] LABS: HEMATOCRIT 31.2 % (42-52); MEAN CELL VOLUME 89.1 fL (80-100); MEAN CORPUSCULAR HGB CONC 33.7 g/dl (32-36); MEAN PLATELET VOLUME 9.9 fL (7.4-10.4); PLATELET COUNT 149 K/uL (130-400); WHITE BLOOD COUNT 9.42 K/uL (4.8-10.8)
[2017-01-09 06:38] LABS: BUN/CREATININE RATIO 10.4 (10-20); CALCIUM 8.1 mg/dl (8.5-10.1); CREATININE 1.2 mg/dl (0.60-1.40); POTASSIUM 3.6 mmol/L (3.5-5.1)
[2017-01-09] MEDS: LEVALBUTEROL 1.25MG/0.5ML NEB INH SCH ×4 (07:04→19:30)
[2017-01-09] MEDS: IPRATROPIUM BROMIDE NEB SOLN 0.02% 2.5 ML VIAL INH SCH ×4 (07:04→19:30)
[2017-01-09] MEDS: BuPROPion SR 150 MG TABCR PO SCH ×2 (07:23→19:47)
[2017-01-09] MEDS: PANTOprazole SOD 40 MG TAB PO SCH ×2 (07:23→19:47)
[2017-01-09] MEDS: ENOXAPARIN 40 MG/0.4 ML SYR SC SCH (07:23)
[2017-01-09] MEDS: MULTIVITAMIN TAB PO SCH (07:23)
[2017-01-09] MEDS: BUPRENORPHINE/NALOXONE 2/0.5MG 1 TAB PO SCH ×2 (07:30→20:00)
--- NOTE | 2017-01-09 10:42 | Progress Note ---
Medicine Progress Note Date & Time of Visit: Jan 09, 2017 at 10:38. Subjective Pt was seen and examined lying in bed with no distress Pt said that he feels a little better today compare to yesterday cough is improved denies any chest pain, palpitation, dizziness Objective Last 8 Hrs Date Time Temp Pulse Resp B/P Pulse Ox O2 Delivery O2 Flow Rate FiO2 01/09/17 08:00 94 Nasal Cannula 3.0 01/09/17 07:21 36.7 83 13 117/63 94 Nasal Cannula 3.0 01/09/17 07:04 72 20 95 Nasal Cannula 4.0 01/09/17 04:05 95 Nasal Cannula 5.0 01/09/17 03:55 37.2 74 12 101/69 95 Nasal Cannula 5.0 Physical Exam: General- No acute respiratory distress Head- atraumatic Eyes- PERRL, EOMI ENT- oropharynx clear Neck- supple, no JVD Lungs- Coarse BS Heart- regular rhythm; no murmur Abdomen- normal bowel sounds, soft Extremities- no calf tenderness Neuro- alert, oriented x 3; PERRL, EOMI; no facial palsy Skin- warm & dry Laboratory Results: Last 24 Hours Test 01/09/17 05:49 White Blood Count 9.42 K/uL Red Blood Count 3.50 M/uL Hemoglobin 10.5 g/dL Hematocrit 31.2 % Mean Corpuscular Volume 89.1 fL Mean Corpuscular Hemoglobin 30.0 pg Mean Corpuscular Hemoglobin Concent 33.7 g/dl RDW Standard Deviation 45.1 fL RDW Coefficient of Variation 13.8 % Platelet Count 149 K/uL Mean Platelet Volume 9.9 fL Sodium Level 141 mmol/L Potassium Level 3.6 mmol/L Chloride Level 104 mmol/L Carbon Dioxide Level 32 mmol/L Anion Gap 5.0 mmol/L Blood Urea Nitrogen 13 mg/dl Creatinine 1.20 mg/dl Est Creatinine Clear Calc Drug Dose 83.2 ml/min Estimated GFR () 81.2 Estimated GFR (Non- 70.1 BUN/Creatinine Ratio 10.4 Random Glucose 113 mg/dl Calcium Level 8.1 mg/dl Date/Time Source Procedure Growth Status 01/08/17 12:15 Sputum Expectorated Sputum Gram Stain - Final Resulted 01/08/17 12:15 Sputum Expectorated Sputum Sputum Culture Pending Resulted Assessment & Plan PNEUMONIA Acutely ill- fever, tachycardia. Meets criteria for sepsis Serum lactate normal. WBC trend down to normal CXR showed showed bibasilar parenchymal infiltrative change Blood cx no growth and sputum culture pending Continue IV levofloxacin and piperacillin / tazobactam Flu test negative ACUTE HYPOXIC RESPIRATORY FAILURE Tachypneic, using accessory muscles of respiration on admission Secondary to Pneumonia CTA chest showed consolidative infiltrates right midlung, right base, and to lesser extent left base. Negative for PE O2 sats as low as 81% on RA. Continue supplemental O2 as needed. Levalbuterol / ipratropium nebs for bronchospasm. improved HYPOKALEMIA Serum K 3.6 Hypokalemia probably due to HCTZ. stable HYPERTENSION Hold triamterene Stable MEDIASTINAL AND HILAR ADENOPATHY outpatient follow-up CT at appropriate time interval PAIN MANAGEMENT Continue usual dose of buprenorphine-naloxone. HEPATITIS C Followed by GI. Has not received antiviral Rx thus far. VTE PROPHYLAXIS Moderately high risk for VTE. SQ enoxaparin. Ambulate as able. RESUSCITATION STATUS Full code. DISPOSITION will transfer to medical floor Expected discharge to home. Family Medicine follow-up with Dr. Cifuentes. Current Inpatient Medications: Current Inpatient Medications Medications (Trade) Dose Ordered Sig/Adelita Route Start Time Stop Time Status Last Admin Dose Admin Enoxaparin Sodium (Lovenox Inj) 40 mg DAILY SC 01/08/17 09:00 02/07/17 08:59 01/09/17 07:23 40 MG Ondansetron HCl (Zofran Inj) 4 mg Q6H PRN IV 01/07/17 19:45 02/06/17 19:44 Ioversol (Optiray 320) 112 ml UD PRN IV 01/07/17 22:30 01/11/17 22:29 Bupropion HCl (Wellbutrin-Sr Tab) 150 mg BID PO 01/08/17 09:00 02/07/17 08:59 01/09/17 07:23 150 MG Multivitamins (Multivitamin Tab) 1 tab DAILY PO 01/08/17 09:00 02/07/17 08:59 01/09/17 07:23 1 TAB Buprenorphine/ Naloxone (Suboxone Tab) 4 tab BID PO 01/08/17 09:00 02/07/17 08:59 01/09/17 07:30 4 TAB Ipratropium [place] (Atrovent 0.02% 0.5MG/2.5ML Neb) 0.5 mg QIDR INH 01/08/17 08:00 02/07/17 07:59 01/09/17 07:04 0.5 MG Levalbuterol (Xopenex 1.25MG/ 0.5ML Neb) 1.25 mg QIDR INH 01/08/17 08:00 02/07/17 07:59 01/09/17 07:04 1.25 MG Levalbuterol 0.63 mg 0.63 mg Q2H PRN INH 01/07/17 23:30 02/06/17 23:29 Dextrose/Lactated Ringer[place] 1,000 ml @ 150 mls/hr Q6H40M IV 01/07/17 23:45 02/06/17 23:44 01/09/17 10:02 150 MLS/HR Levofloxacin 750 mg/Prmx 150 ml @ 100 mls/hr DAILY@2000 IV 01/08/17 20:00 01/15/17 19:59 01/08/17 20:38 100 MLS/HR Piperacillin Sod/ Tazobactam Sod/ Dextrose (Zosyn Iv/D5 100ml) 115 ml @ 28.75 mls/ hr Q8H IV 01/08/17 00:00 01/15/17 00:00 01/09/17 07:25 28.75 MLS/HR Piperacillin Sod/ Tazobactam Sod (Consult) 1 ea UD PRN N/A 01/07/17 23:45 02/06/17 23:44 Pantoprazole Sodium (Protonix Tab) 40 mg BID PO 01/08/17 09:00 02/07/17 08:59 01/09/17 07:23 40 MG Acetaminophen (Tylenol Tab) 1,000 mg Q8 PRN PO 01/08/17 00:00 02/07/17 00:00 01/09/17 01:11 1,000 MG Sodium Chloride ([place] Nasal [place]) 1 sprays PRN PRN NA 01/08/17 04:30 02/07/17 04:29
[2017-01-09] MEDS: LEVOFLOXACIN / D5W 750 MG in PREMIXED IN D5W 150 ML IV SCH (19:46)
[2017-01-10] MEDS: PIPERACILL/TAZOBAC IV 3.375 GM in DEXTROSE 5% 100ML IV SCH ×4 (00:32→23:55)
[2017-01-10] MEDS: ACETAMINOPHEN 500 MG TAB PO PRN ×2 (00:33→18:01)
[2017-01-10] MEDS: D5W AND LACTATED RINGERS 1,000 ML IV SCH ×2 (04:10→13:26)
[2017-01-10] MEDS ORDERED: IBUPROFEN 200 MG TAB PO PRN (04:15)
[2017-01-10] MEDS ORDERED: KETOROLAC TROMETHAMINE 30 MG/ML VIAL ONE (04:41)
[2017-01-10 06:14] LABS: MEAN CELL VOLUME 88.1 fL (80-100); MEAN CORPUSCULAR HEMOGLOBIN 29.8 pg (25-34); MEAN CORPUSCULAR HGB CONC 33.8 g/dl (32-36); MEAN PLATELET VOLUME 9.9 fL (7.4-10.4); PLATELET COUNT 152 K/uL (130-400); RED BLOOD COUNT 3.29 M/uL (4.7-6.1); WHITE BLOOD COUNT 6.58 K/uL (4.8-10.8)
[2017-01-10 06:49] LABS: CALCIUM 8.2 mg/dl (8.5-10.1); POTASSIUM 3.3 mmol/L (3.5-5.1)
--- NOTE | 2017-01-10 07:16 | DIAGNOSTIC IMAGING REPORT ---
CT SCAN OF THE BRAIN WITHOUT IV CONTRAST CLINICAL HISTORY: Headache. COMPARISON STUDY: No priors. TECHNIQUE: Unenhanced axial CT scan of the brain is performed from the vertex to the skull base. Automated dose control exposure was utilized. CT DOSE: 651.12 mGy.cm FINDINGS: Brain parenchyma: The brain parenchyma is normal in appearance. There is no hemorrhage, mass effect, or evidence of acute territorial ischemia by CT criteria. [place]-white matter is preserved. No extra-axial fluid collection is seen. Ventricles, sulci, cisterns: Normal in configuration. Intracranial vasculature: The visualized intracranial vasculature at the skull base is normal in appearance. Calvarium: Unremarkable. Sinuses and mastoids: Trace mucosal thickening is seen within the left maxillary antrum and the sphenoid sinuses. Moderate mucosal thickening is present within the frontal and ethmoid sinuses. The mastoid air cells are well pneumatized. Orbits: The bony orbits are grossly intact. IMPRESSION: 1. No acute intracranial abnormality. 2. Paranasal sinus disease as above. Electronically signed by: Son Pnea M.D. 01/10/2017 7:15 AM Dictated Date/Time: 01/10/2017 7:13 AM
[2017-01-10] MEDS: PANTOprazole SOD 40 MG TAB PO SCH ×2 (07:50→19:32)
[2017-01-10] MEDS: BuPROPion SR 150 MG TABCR PO SCH ×2 (07:50→19:34)
[2017-01-10] MEDS: MULTIVITAMIN TAB PO SCH (07:50)
[2017-01-10] MEDS: ENOXAPARIN 40 MG/0.4 ML SYR SC SCH (07:51)
[2017-01-10] MEDS: LEVALBUTEROL 1.25MG/0.5ML NEB INH SCH ×3 (08:01→19:08)
[2017-01-10 08:02] VITALS: PULSE 87; O2SAT 95
[2017-01-10] MEDS: IPRATROPIUM BROMIDE NEB SOLN 0.02% 2.5 ML VIAL INH SCH ×3 (08:02→19:08)
[2017-01-10] MEDS: BUPRENORPHINE/NALOXONE 2/0.5MG 1 TAB PO SCH ×2 (08:08→20:25)
[2017-01-10] MEDS ORDERED: POTASSIUM CHLORIDE 20 MEQ TABCR PO ONE (08:15)
[2017-01-10 08:22] VITALS: BP 132/80; PULSE 82; TEMP 36.7; O2SAT 91
[2017-01-10 15:45] VITALS: BP 155/105; PULSE 100; TEMP 36.8; O2SAT 94
--- NOTE | 2017-01-10 18:13 | Progress Note ---
Medicine Progress Note Date & Time of Visit: Jan 10, 2017 at 18:07. Subjective Pt was seen and examined Sitting at the edge of the bed eating lunch pt said that he feels much better He said that his breathing feels much better denies any chest pain, palpitation, dizziness and fever Objective Last 8 Hrs Date Time Temp Pulse Resp B/P Pulse Ox O2 Delivery O2 Flow Rate FiO2 01/10/17 15:45 36.8 100 20 155/105 94 Room Air Physical Exam: General- No acute respiratory distress Head- atraumatic Eyes- PERRL, EOMI ENT- oropharynx clear Neck- supple, no JVD Lungs- Coarse BS Heart- regular rhythm; no murmur Abdomen- normal bowel sounds, soft Extremities- no calf tenderness Neuro- alert, oriented x 3; PERRL, EOMI; no facial palsy Skin- warm & dry Laboratory Results: Last 24 Hours Test 01/10/17 05:16 01/10/17 07:22 White Blood Count 6.58 K/uL Red Blood Count 3.29 M/uL Hemoglobin 9.8 g/dL Hematocrit 29.0 % Mean Corpuscular Volume 88.1 fL Mean Corpuscular Hemoglobin 29.8 pg Mean Corpuscular Hemoglobin Concent 33.8 g/dl RDW Standard Deviation 43.2 fL RDW Coefficient of Variation 13.3 % Platelet Count 152 K/uL Mean Platelet Volume 9.9 fL Sodium Level 142 mmol/L Potassium Level 3.3 mmol/L Chloride Level 104 mmol/L Carbon Dioxide Level 32 mmol/L Anion Gap 6.0 mmol/L Blood Urea Nitrogen 6 mg/dl Creatinine 1.00 mg/dl Est Creatinine Clear Calc Drug Dose 99.8 ml/min Estimated GFR () 101.3 Estimated GFR (Non- 87.4 BUN/Creatinine Ratio 6.0 Random Glucose 116 mg/dl Calcium Level 8.2 mg/dl Bedside Glucose 132 mg/dl Assessment & Plan PNEUMONIA Acutely ill- fever, tachycardia. Meets criteria for sepsis Serum lactate normal. WBC trend down to normal CXR showed showed bibasilar parenchymal infiltrative change Blood cx no growth and sputum culture pending Continue IV levofloxacin and piperacillin / tazobactam Duoneb treatment Flu test negative improved ACUTE HYPOXIC RESPIRATORY FAILURE Tachypneic, using accessory muscles of respiration on admission Secondary to Pneumonia CTA chest showed consolidative infiltrates right midlung, right base, and to lesser extent left base. Negative for PE O2 sats as low as 81% on RA. Continue supplemental O2 as needed. Levalbuterol / ipratropium nebs for bronchospasm. improved HYPOKALEMIA Serum K 3.6 Hypokalemia probably due to HCTZ. K replaced continue monitor bmp HYPERTENSION BP started to elevate Will resume triamterene will add labetalol prn MEDIASTINAL AND HILAR ADENOPATHY outpatient follow-up CT at appropriate time interval PAIN MANAGEMENT Continue usual dose of buprenorphine-naloxone. HEPATITIS C Followed by GI. Has not received antiviral Rx thus far. VTE PROPHYLAXIS Moderately high risk for VTE. SQ enoxaparin. Ambulate as able. RESUSCITATION STATUS Full code. DISPOSITION Expected discharge to home. Family Medicine follow-up with Dr. Cifuentes. Current Inpatient Medications: Current Inpatient Medications Medications (Trade) Dose Ordered Sig/Adelita Route Start Time Stop Time Status Last Admin Dose Admin Enoxaparin Sodium (Lovenox Inj) 40 mg DAILY SC 01/08/17 09:00 02/07/17 08:59 01/10/17 07:51 40 MG Ondansetron HCl (Zofran Inj) 4 mg Q6H PRN IV 01/07/17 19:45 02/06/17 19:44 Ioversol (Optiray 320) 112 ml UD PRN IV 01/07/17 22:30 01/11/17 22:29 Bupropion HCl (Wellbutrin-Sr Tab) 150 mg BID PO 01/08/17 09:00 02/07/17 08:59 01/10/17 07:50 150 MG Multivitamins (Multivitamin Tab) 1 tab DAILY PO 01/08/17 09:00 02/07/17 08:59 01/10/17 07:50 1 TAB Buprenorphine/ Naloxone (Suboxone Tab) 4 tab BID PO 01/08/17 09:00 02/07/17 08:59 01/10/17 08:08 4 TAB Ipratropium [place] (Atrovent 0.02% 0.5MG/2.5ML Neb) 0.5 mg QIDR INH 01/08/17 08:00 02/07/17 07:59 01/10/17 08:02 0.5 MG Levalbuterol (Xopenex 1.25MG/ 0.5ML Neb) 1.25 mg QIDR INH 01/08/17 08:00 02/07/17 07:59 01/10/17 08:01 1.25 MG Levalbuterol 0.63 mg 0.63 mg Q2H PRN INH 01/07/17 23:30 02/06/17 23:29 Dextrose/Lactated Ringer's 1,000 ml @ 100 mls/hr Q10H IV 01/07/17 23:45 02/06/17 23:44 01/10/17 13:26 100 MLS/HR Piperacillin Sod/ Tazobactam Sod/ Dextrose (Zosyn Iv/D5 100ml) 115 ml @ 28.75 mls/ hr Q8H IV 01/08/17 00:00 01/15/17 00:00 01/10/17 17:47 28.75 MLS/HR Piperacillin Sod/ Tazobactam Sod (Consult) 1 ea UD PRN N/A 01/07/17 23:45 02/06/17 23:44 Pantoprazole Sodium (Protonix Tab) 40 mg BID PO 01/08/17 09:00 02/07/17 08:59 01/10/17 07:50 40 MG Acetaminophen (Tylenol Tab) 1,000 mg Q8 PRN PO 01/08/17 00:00 02/07/17 00:00 01/10/17 18:01 1,000 MG Sodium Chloride ([place] Nasal [place]) 1 sprays PRN PRN NA 01/08/17 04:30 02/07/17 04:29 Levofloxacin (Levaquin Tab) 750 mg QPM@1900 PO 01/10/17 19:00 01/15/17 19:59 Ibuprofen (Advil Tab) 400 mg Q6H PRN PO 01/10/17 04:15 02/09/17 04:14 Ketorolac Tromethamine (Toradol Inj) 30 mg Q6H PRN IV 01/10/17 04:15 01/15/17 04:14
[2017-01-10] MEDS ORDERED: LABETALOL HCL IV 5 MG/ML 20ML IV PRN (18:15)
[2017-01-10] MEDS ORDERED: ENALAPRILAT IV 2.5 MG in DEXTROSE 5% 25ML 25 ML IV PRN (19:00)
[2017-01-10 19:31] VITALS: BP 135/91; PULSE 101; TEMP 36.8; O2SAT 92
[2017-01-10] MEDS: LEVOFLOXACIN 750 MG TAB PO SCH (19:33)
[2017-01-10] MEDS: KETOROLAC TROMETHAMINE 30 MG/ML VIAL IV PRN (22:48)
[2017-01-10 23:44] VITALS: BP 136/85; PULSE 97; TEMP 37.1; O2SAT 90
[2017-01-11] MEDS: D5W AND LACTATED RINGERS 1,000 ML IV SCH ×2 (00:11→10:31)
[2017-01-11 07:11] VITALS: PULSE 75; O2SAT 91
[2017-01-11 07:15] VITALS: BP 150/99; PULSE 88; TEMP 36.7; O2SAT 93
[2017-01-11 07:39] LABS: HEMATOCRIT 32.2 % (42-52); MEAN CELL VOLUME 85.9 fL (80-100); MEAN CORPUSCULAR HEMOGLOBIN 29.1 pg (25-34); MEAN CORPUSCULAR HGB CONC 33.9 g/dl (32-36); MEAN PLATELET VOLUME 9.4 fL (7.4-10.4); PLATELET COUNT 174 K/uL (130-400); RED BLOOD COUNT 3.75 M/uL (4.7-6.1); WHITE BLOOD COUNT 4.77 K/uL (4.8-10.8)
[2017-01-11] MEDS ORDERED: IPRATROPIUM BROMIDE NEB SOLN 0.02% 2.5 ML VIAL INH PRN (07:45)
[2017-01-11 08:13] LABS: BUN/CREATININE RATIO 3.4 (10-20); CALCIUM 8.3 mg/dl (8.5-10.1); CREATININE 1.2 mg/dl (0.60-1.40); MAGNESIUM 1.3 mg/dl (1.8-2.4); POTASSIUM 3.2 mmol/L (3.5-5.1)
[2017-01-11 08:30] VITALS: O2SAT 93
[2017-01-11] MEDS: PIPERACILL/TAZOBAC IV 3.375 GM in DEXTROSE 5% 100ML IV SCH ×2 (08:31→15:58)
[2017-01-11] MEDS: MULTIVITAMIN TAB PO SCH (08:31)
[2017-01-11] MEDS: ENOXAPARIN 40 MG/0.4 ML SYR SC SCH (08:32)
[2017-01-11] MEDS: BuPROPion SR 150 MG TABCR PO SCH ×2 (08:32→20:54)
[2017-01-11] MEDS: PANTOprazole SOD 40 MG TAB PO SCH ×2 (08:32→20:34)
[2017-01-11] MEDS: BUPRENORPHINE/NALOXONE 2/0.5MG 1 TAB PO SCH ×2 (08:58→20:36)
[2017-01-11] MEDS ORDERED: POTASSIUM CHLORIDE 20 MEQ TABCR PO ONE (10:00)
[2017-01-11 10:05] VITALS: BP 144/89
[2017-01-11] MEDS: MAGNESIUM SULFATE 1GM / D5W 1 GM in PREMIXED IN D5W 100 ML IV SCH ×4 (10:28→14:13)
[2017-01-11] MEDS: IPRATROPIUM BROMIDE HFA INHALER INH SCH ×3 (11:37→20:33)
[2017-01-11] MEDS: LEValbuterol HFA 15GM INHALER INH SCH ×3 (11:37→20:32)
[2017-01-11] MEDS ORDERED: TRIAMTERENE/HCTZ 37.5/25MG TAB PO ONE (11:55)
[2017-01-11] MEDS ORDERED: NURSING VERBAL MED ORDER ONE ×2 (13:00→16:45)
[2017-01-11] MEDS ORDERED: COUGH DROP (SUGAR FREE) LOZ 24 LOZ/1 BOX PO PRN ×2 (13:30→21:00)
[2017-01-11 15:35] VITALS: BP 145/96; PULSE 88; TEMP 36.8; O2SAT 92
[2017-01-11] MEDS: KETOROLAC TROMETHAMINE 30 MG/ML VIAL IV PRN (15:58)
--- NOTE | 2017-01-11 18:31 | Progress Note ---
Medicine Progress Note Date & Time of Visit: Jan 11, 2017 at 18:25. Subjective Pt was seen and examined sitting in bed comfortable with no distress Pt said that he feels much better today he said that his cough improved denies any chest pain, palpitation, dizziness and sob Objective Last 8 Hrs Date Time Temp Pulse Resp B/P Pulse Ox O2 Delivery O2 Flow Rate FiO2 01/11/17 15:35 36.8 88 18 145/96 92 Room Air Physical Exam: General- No acute respiratory distress Head- atraumatic Eyes- PERRL, EOMI ENT- oropharynx clear Neck- supple, no JVD Lungs- No wheezing, no crackles Heart- regular rhythm; no murmur Abdomen- normal bowel sounds, soft Extremities- no calf tenderness Neuro- alert, oriented x 3; PERRL, EOMI; no facial palsy Skin- warm & dry Laboratory Results: Last 24 Hours Test 01/11/17 07:31 White Blood Count 4.77 K/uL Red Blood Count 3.75 M/uL Hemoglobin 10.9 g/dL Hematocrit 32.2 % Mean Corpuscular Volume 85.9 fL Mean Corpuscular Hemoglobin 29.1 pg Mean Corpuscular Hemoglobin Concent 33.9 g/dl RDW Standard Deviation 41.8 fL RDW Coefficient of Variation 13.3 % Platelet Count 174 K/uL Mean Platelet Volume 9.4 fL Sodium Level 141 mmol/L Potassium Level 3.2 mmol/L Chloride Level 105 mmol/L Carbon Dioxide Level 31 mmol/L Anion Gap 5.0 mmol/L Blood Urea Nitrogen 4 mg/dl Creatinine 1.20 mg/dl Est Creatinine Clear Calc Drug Dose 83.2 ml/min Estimated GFR () 81.2 Estimated GFR (Non- 70.1 BUN/Creatinine Ratio 3.4 Random Glucose 109 mg/dl Calcium Level 8.3 mg/dl Magnesium Level 1.3 mg/dl Assessment & Plan PNEUMONIA Acutely ill- fever, tachycardia. Meets criteria for sepsis Serum lactate normal. WBC trend down to normal CXR showed showed bibasilar parenchymal infiltrative change Blood cx no growth and sputum culture pending Continue IV levofloxacin and piperacillin / tazobactam will change abx to levaquin PO Duoneb treatment Flu test negative improved ACUTE HYPOXIC RESPIRATORY FAILURE Tachypneic, using accessory muscles of respiration on admission Secondary to Pneumonia CTA chest showed consolidative infiltrates right midlung, right base, and to lesser extent left base. Negative for PE O2 sats as low as 81% on RA. Continue supplemental O2 as needed. Levalbuterol / ipratropium nebs for bronchospasm. saturated at 93% on RA significantly improved ELECTROLYTES IMBALANCE K and mag replaced continue monitor bmp HYPERTENSION BP started to elevate resumed triamterene continue monitor BP on enalapril prn MEDIASTINAL AND HILAR ADENOPATHY outpatient follow-up CT at appropriate time interval PAIN MANAGEMENT Continue usual dose of buprenorphine-naloxone. HEPATITIS C Followed by GI. Has not received antiviral Rx thus far. VTE PROPHYLAXIS Moderately high risk for VTE. SQ enoxaparin. Ambulate as able. RESUSCITATION STATUS Full code. DISPOSITION Expected discharge to home tomorrow Family Medicine follow-up with Dr. Cifuentes. Current Inpatient Medications: Current Inpatient Medications Medications (Trade) Dose Ordered Sig/Adelita Route Start Time Stop Time Status Last Admin Dose Admin Enoxaparin Sodium (Lovenox Inj) 40 mg DAILY SC 01/08/17 09:00 02/07/17 08:59 01/11/17 08:32 40 MG Ondansetron HCl (Zofran Inj) 4 mg Q6H PRN IV 01/07/17 19:45 02/06/17 19:44 Ioversol (Optiray 320) 112 ml UD PRN IV 01/07/17 22:30 01/11/17 22:29 Bupropion HCl (Wellbutrin-Sr Tab) 150 mg BID PO 01/08/17 09:00 02/07/17 08:59 01/11/17 08:32 150 MG Multivitamins (Multivitamin Tab) 1 tab DAILY PO 01/08/17 09:00 02/07/17 08:59 01/11/17 08:31 1 TAB Buprenorphine/ Naloxone (Suboxone Tab) 4 tab BID PO 01/08/17 09:00 02/07/17 08:59 01/11/17 08:58 4 TAB Levalbuterol 0.63 mg 0.63 mg Q2H PRN INH 01/07/17 23:30 02/06/17 23:29 Piperacillin Sod/ Tazobactam Sod/ Dextrose (Zosyn Iv/D5 100ml) 115 ml @ 28.75 mls/ hr Q8H IV 01/08/17 00:00 01/15/17 00:00 01/11/17 15:58 28.75 MLS/HR Piperacillin Sod/ Tazobactam Sod (Consult) 1 ea UD PRN N/A 01/07/17 23:45 02/06/17 23:44 Pantoprazole Sodium (Protonix Tab) 40 mg BID PO 01/08/17 09:00 02/07/17 08:59 01/11/17 08:32 40 MG Acetaminophen (Tylenol Tab) 1,000 mg Q8 PRN PO 01/08/17 00:00 02/07/17 00:00 01/10/17 18:01 1,000 MG Sodium Chloride ([place] Nasal [place]) 1 sprays PRN PRN NA 01/08/17 04:30 02/07/17 04:29 Levofloxacin (Levaquin Tab) 750 mg QPM@1900 PO 01/10/17 19:00 01/15/17 19:59 01/10/17 19:33 750 MG Ibuprofen (Advil Tab) 400 mg Q6H PRN PO 01/10/17 04:15 02/09/17 04:14 01/11/17 12:47 400 MG Ketorolac Tromethamine 30 mg 30 mg Q6H PRN IV 01/10/17 04:15 01/15/17 04:14 01/11/17 15:58 30 MG Enalaprilat/ Dextrose (Vasotec IV/D5 25ml) 27 ml @ 100 mls/hr Q6H PRN IV 01/10/17 19:00 02/09/17 18:59 Ipratropium Only (Atrovent Hfa Inhaler) 2 puffs QID INH 01/11/17 12:00 02/10/17 11:59 01/11/17 17:00 2 PUFFS Levalbuterol (Xopenex Hfa Inhaler) 2 puffs QID INH 01/11/17 12:00 02/10/17 11:59 01/11/17 17:00 2 PUFFS Ipratropium Only (Atrovent 0.02% 0.5MG/2.5ML Neb) 0.5 mg QIDR PRN INH 01/11/17 07:45 02/10/17 07:44 Triamterene/HCTZ (Maxzide 37.5/25 Tab) 1 tab DAILY PO 01/12/17 08:00 02/10/17 07:59 Menthol ([place]) 1 leanna PRN PRN PO 01/11/17 13:30 02/10/17 13:29 01/11/17 15:58 1 LEANNA
[2017-01-11] MEDS: LEVOFLOXACIN 750 MG TAB PO SCH (19:01)
[2017-01-12] MEDS: PIPERACILL/TAZOBAC IV 3.375 GM in DEXTROSE 5% 100ML IV SCH ×3 (00:07→16:47)
[2017-01-12 00:14] VITALS: BP 152/100; PULSE 94; TEMP 36.8; O2SAT 95
[2017-01-12 07:24] LABS: HEMATOCRIT 31.7 % (42-52); MEAN CELL VOLUME 84.8 fL (80-100); MEAN CORPUSCULAR HEMOGLOBIN 29.1 pg (25-34); MEAN CORPUSCULAR HGB CONC 34.4 g/dl (32-36); MEAN PLATELET VOLUME 9.6 fL (7.4-10.4); PLATELET COUNT 219 K/uL (130-400); RED BLOOD COUNT 3.74 M/uL (4.7-6.1); WHITE BLOOD COUNT 5.22 K/uL (4.8-10.8)
[2017-01-12 07:49] LABS: BUN/CREATININE RATIO 2.3 (10-20); CALCIUM 8.6 mg/dl (8.5-10.1); CREATININE 1.2 mg/dl (0.60-1.40); POTASSIUM 3.5 mmol/L (3.5-5.1)
[2017-01-12] MEDS ORDERED: TRIAMTERENE/HCTZ 37.5/25MG TAB PO SCH (08:00)
[2017-01-12 08:01] VITALS: BP 153/91; PULSE 82; TEMP 36.9; O2SAT 92
[2017-01-12] MEDS: ACETAMINOPHEN 500 MG TAB PO PRN (08:28)
[2017-01-12] MEDS: LEValbuterol HFA 15GM INHALER INH SCH ×3 (08:28→16:48)
[2017-01-12] MEDS: IPRATROPIUM BROMIDE HFA INHALER INH SCH ×3 (08:28→16:48)
[2017-01-12] MEDS: BuPROPion SR 150 MG TABCR PO SCH (08:29)
[2017-01-12] MEDS: PANTOprazole SOD 40 MG TAB PO SCH (08:29)
[2017-01-12] MEDS: ENOXAPARIN 40 MG/0.4 ML SYR SC SCH (08:30)
[2017-01-12] MEDS: MULTIVITAMIN TAB PO SCH (08:30)
[2017-01-12] MEDS: BUPRENORPHINE/NALOXONE 2/0.5MG 1 TAB PO SCH (08:54)
[2017-01-12] MEDS ORDERED: NURSING DECISION MEDICATION ORDER SCH (12:30)
[2017-01-12] MEDS ORDERED: CHLORASEPTIC 1.4% SOLN 180 ML BTL MT PRN (12:45)
[2017-01-12 15:08] VITALS: BP 145/98; PULSE 81; TEMP 36.9; O2SAT 93
--- NOTE | 2017-01-12 16:51 | Progress Note ---
Medicine Progress Note Date & Time of Visit: Jan 12, 2017 at 16:40. Subjective Pt was seen and examined Sitting at the edge of the bed watching TV Pt said that he feels fine He said that he continue to have some pain behind the left orbit associated with headache Also he has some sore throat he said that the cough is better and his breathing improves denies any chest pain, palpitation, dizziness Objective Last 8 Hrs Date Time Temp Pulse Resp B/P Pulse Ox O2 Delivery O2 Flow Rate FiO2 01/12/17 15:08 36.9 81 18 145/98 93 Room Air Physical Exam: General- No acute respiratory distress Head- atraumatic Eyes- PERRL, EOMI ENT- oropharynx clear Neck- supple, no JVD Lungs- No wheezing, no crackles Heart- regular rhythm; no murmur Abdomen- normal bowel sounds, soft Extremities- no calf tenderness Neuro- alert, oriented x 3; PERRL, EOMI; no facial palsy Skin- warm & dry Laboratory Results: Last 24 Hours Test 01/12/17 07:00 White Blood Count 5.22 K/uL Red Blood Count 3.74 M/uL Hemoglobin 10.9 g/dL Hematocrit 31.7 % Mean Corpuscular Volume 84.8 fL Mean Corpuscular Hemoglobin 29.1 pg Mean Corpuscular Hemoglobin Concent 34.4 g/dl RDW Standard Deviation 40.1 fL RDW Coefficient of Variation 13.0 % Platelet Count 219 K/uL Mean Platelet Volume 9.6 fL Sodium Level 141 mmol/L Potassium Level 3.5 mmol/L Chloride Level 104 mmol/L Carbon Dioxide Level 29 mmol/L Anion Gap 8.0 mmol/L Blood Urea Nitrogen 3 mg/dl Creatinine 1.20 mg/dl Est Creatinine Clear Calc Drug Dose 83.2 ml/min Estimated GFR () 81.2 Estimated GFR (Non- 70.1 BUN/Creatinine Ratio 2.3 Random Glucose 92 mg/dl Calcium Level 8.6 mg/dl Magnesium Level 2.0 mg/dl Assessment & Plan PNEUMONIA Acutely ill- fever, tachycardia. Meets criteria for sepsis Serum lactate normal. WBC trend down to normal CXR showed showed bibasilar parenchymal infiltrative change Blood cx no growth and sputum culture pending Continue IV levofloxacin and piperacillin / tazobactam Duoneb treatment Flu test negative Will discharge today on levaquin PO ACUTE HYPOXIC RESPIRATORY FAILURE Tachypneic, using accessory muscles of respiration on admission Secondary to Pneumonia CTA chest showed consolidative infiltrates right midlung, right base, and to lesser extent left base. Negative for PE O2 sats as low as 81% on RA. Continue supplemental O2 as needed. Levalbuterol / ipratropium nebs for bronchospasm. saturated at 93% on RA feels much better ELECTROLYTES IMBALANCE Stable continue monitor bmp and mg HYPERTENSION BP started to elevate resumed triamterene continue monitor BP on enalapril prn MEDIASTINAL AND HILAR ADENOPATHY outpatient follow-up CT at appropriate time interval PAIN MANAGEMENT Continue usual dose of buprenorphine-naloxone. HEPATITIS C Followed by GI. Has not received antiviral Rx thus far. VTE PROPHYLAXIS Moderately high risk for VTE. SQ enoxaparin. Ambulate as able. RESUSCITATION STATUS Full code. DISPOSITION Expected discharge to home today Follow-up with Dr. Cifuentes on January 16 at 3:30 pm Current Inpatient Medications: Current Inpatient Medications Medications (Trade) Dose Ordered Sig/Adelita Route Start Time Stop Time Status Last Admin Dose Admin Enoxaparin Sodium (Lovenox Inj) 40 mg DAILY SC 01/08/17 09:00 02/07/17 08:59 01/12/17 08:30 40 MG Ondansetron HCl (Zofran Inj) 4 mg Q6H PRN IV 01/07/17 19:45 02/06/17 19:44 Bupropion HCl (Wellbutrin-Sr Tab) 150 mg BID PO 01/08/17 09:00 02/07/17 08:59 01/12/17 08:29 150 MG Multivitamins (Multivitamin Tab) 1 tab DAILY PO 01/08/17 09:00 02/07/17 08:59 01/12/17 08:30 1 TAB Buprenorphine/ Naloxone (Suboxone Tab) 4 tab BID PO 01/08/17 09:00 02/07/17 08:59 01/12/17 08:54 4 TAB Levalbuterol 0.63 mg 0.63 mg Q2H PRN INH 01/07/17 23:30 02/06/17 23:29 Piperacillin Sod/ Tazobactam Sod/ Dextrose (Zosyn Iv/D5 100ml) 115 ml @ 28.75 mls/ hr Q8H IV 01/08/17 00:00 01/15/17 00:00 4/1/17 08:54 28.75 MLS/HR Piperacillin Sod/ Tazobactam Sod (Consult) 1 ea UD PRN N/A 01/07/17 23:45 02/06/17 23:44 Pantoprazole Sodium (Protonix Tab) 40 mg BID PO 01/08/17 09:00 02/07/17 08:59 01/12/17 08:29 40 MG Acetaminophen (Tylenol Tab) 1,000 mg Q8 PRN PO 01/08/17 00:00 02/07/17 00:00 01/12/17 08:28 1,000 MG Sodium Chloride ([place] Nasal [place]) 1 sprays PRN PRN NA 01/08/17 04:30 02/07/17 04:29 Levofloxacin (Levaquin Tab) 750 mg QPM@1900 PO 01/10/17 19:00 01/15/17 19:59 01/11/17 19:01 750 MG Ibuprofen (Advil Tab) 400 mg Q6H PRN PO 01/10/17 04:15 02/09/17 04:14 01/11/17 12:47 400 MG Ketorolac Tromethamine 30 mg 30 mg Q6H PRN IV 01/10/17 04:15 01/15/17 04:14 01/11/17 15:58 30 MG Enalaprilat/ Dextrose (Vasotec IV/D5 25ml) 27 ml @ 100 mls/hr Q6H PRN IV 01/10/17 19:00 02/09/17 18:59 Ipratropium [place] (Atrovent Hfa Inhaler) 2 puffs QID INH 01/11/17 12:00 02/10/17 11:59 01/12/17 13:16 2 PUFFS Levalbuterol (Xopenex Hfa Inhaler) 2 puffs QID INH 01/11/17 12:00 02/10/17 11:59 01/12/17 13:16 2 PUFFS Ipratropium [place] (Atrovent 0.02% 0.5MG/2.5ML Neb) 0.5 mg QIDR PRN INH 01/11/17 07:45 02/10/17 07:44 Triamterene/HCTZ (Maxzide 37.5/25 Tab) 1 tab DAILY PO 01/12/17 08:00 02/10/17 07:59 01/12/17 08:30 1 TAB Menthol (Nice Leanna) 1 leanna PRN PRN PO 01/11/17 13:30 02/10/17 13:29 01/11/17 15:58 1 LEANNA Menthol (Nice Leanna) 1 leanna Q6 PRN PO 01/11/17 21:00 02/10/17 20:59 Phenol (Chloraseptic 1.4% [place]) 1 sprays DAILY PRN MT 01/12/17 12:45 02/11/17 12:44
[2017-01-12] MEDS ORDERED: LVQ750 PO (17:01)
[2017-01-12] MEDS ORDERED: VNTHFA/IN INH ×2 (17:01→17:03)
--- NOTE | 2017-01-12 17:11 | Discharge Instructions ---
Discharge Instructions Date of Service Jan 12, 2017. Admission Reason for Admission: Acute Hypoxic Respiratory failure Discharge Discharge Diagnosis / Problem: Pneumonia, Cough, Electrolytes imbalance, Hypertension Discharge Goals Goal(s): Decrease discomfort, Improve function Activity Recommendations Activity Limitations: resume your previous activity (as tolerated) . Instructions / Follow-Up Instructions / Follow-Up Follow up with your physician Dr. Cifuentes on January 16 @ 3:30 pm Monitor potassium and Magnesium Complete the course of levaquin use Ventolin inhaler as needed for SOB Seek medical attention if SOB worsening Increase potassium intake in diet (such as banana) Current Hospital Diet Patient's current hospital diet: Regular Diet Discharge Diet Recommended Diet: Low Sodium Diet (2gm Na) Pending Studies Studies pending at discharge: no Medical Emergencies . Who to Call and When: Medical Emergencies: If at any time you feel your situation is an emergency, please call 911 immediately. . Non-Emergent Contact Non-Emergency issues call your: Primary Care Provider Call Non-Emergent contact if: you have a fever, you have any medication questions . . "Provider Documentation" section prepared by Gilson Mak. VTE Core Measure Inpt VTE Proph given/why not?: Enoxaparin (Lovenox)SQ
[2017-01-12 17:34] VITALS: BP 145/98; PULSE 81; TEMP 36.9; O2SAT 93
[2017-01-12] MEDS: LEVOFLOXACIN 750 MG TAB PO SCH (18:10)
--- NOTE | 2017-01-13 18:17 | Discharge Summary ---
Discharge Summary Date of Service Jan 13, 2017. Discharge Summary Admission Date: Jan 07, 2017 at 19:38 Discharge Date: Jan 12, 2017 Discharge Disposition: Home Principal Diagnosis: Acute Hypoxic respiratory failure Secondary Diagnoses/Problems: Pneumonia, Cough Electrolytes imbalance Hypertension MEDIASTINAL AND HILAR ADENOPATHY Hep C Procedures: CHEST CTA for PULMONARY ARTERIES CT DOSE: 443.61 mGy.cm HISTORY: Chest pain dyspnea. Pneumonia. TECHNIQUE: Multiaxial CT images of the chest were performed following the intravenous administration of contrast to evaluate the pulmonary arteries. Maximal intensity projection images were also obtained. COMPARISON STUDY: None. FINDINGS: There is a normal caliber thoracic aorta with no evidence for dissection. There is no evidence for pulmonary embolus. Moderate mediastinal and hilar julia change is present. Superior mediastinal nodes measure 1.5 cm. Nodes measuring 12 mm are present bilaterally there are parenchymal infiltrate or consolidative changes right midlung. There is a 6 mm parenchymal nodule right upper lung. There are consolidative parenchymal infiltrates involving the right and to lesser extent left lung base. Limited evaluation the upper abdomen is unremarkable. IMPRESSION: 1. Study is negative for pulmonary embolus. 2. Consolidative infiltrates right midlung, right base, and to lesser extent left base. 3. mediastinal and hilar adenopathy is considered significant. Although it is potentially reactive, a follow-up CT at appropriate time interval is felt to be mandatory to exclude an underlying neoplastic process. Electronically signed by: Nithin Fiore M.D. 01/07/2017 10:30 PM Dictated Date/Time: 01/07/2017 10:[address] SCAN OF THE BRAIN WITHOUT IV CONTRAST CLINICAL HISTORY: Headache. COMPARISON STUDY: No priors. TECHNIQUE: Unenhanced axial CT scan of the brain is performed from the vertex to the skull base. Automated dose control exposure was utilized. CT DOSE: 651.12 mGy.cm FINDINGS: Brain parenchyma: The brain parenchyma is normal in appearance. There is no hemorrhage, mass effect, or evidence of acute territorial ischemia by CT criteria. Matson-white matter is preserved. No extra-axial fluid collection is seen. Ventricles, sulci, cisterns: Normal in configuration. Intracranial vasculature: The visualized intracranial vasculature at the skull base is normal in appearance. Calvarium: Unremarkable. Sinuses and mastoids: Trace mucosal thickening is seen within the left maxillary antrum and the sphenoid sinuses. Moderate mucosal thickening is present within the frontal and ethmoid sinuses. The mastoid air cells are well pneumatized. Orbits: The bony orbits are grossly intact. IMPRESSION: 1. No acute intracranial abnormality. 2. Paranasal sinus disease as above. Electronically signed by: Son Pena M.D. 01/10/2017 7:15 AM Dictated Date/Time: 01/10/2017 7:13 AM Medication Reconciliation New Medications: Albuterol Hfa (Ventolin Hfa) 200 Puffs/42063 Mcg Aers 1-2 PUFFS INH Q6H, #1 INHALER Levofloxacin (Levofloxacin) 750 Mg Tab 750 MG PO DAILY for 3 Days, #3 TAB Continued Medications: Buprenorphine Hcl-Naloxone Hcl (Suboxone 8-2 Mg) 1 Mis Mis Bupropion (Wellbutrin Sr) 150 Mg Ertab 150 MG PO BID, TAB Diclofenac (Voltaren) 75 Mg Tabcr 75 MG PO BIDM, TAB WITH FOOD Multivitamin (Multivitamin) Tab 1 TAB PO DAILY, TAB Omeprazole (Omeprazole) 20 Mg Tab 20 MG PO BID Triamterene/Hctz (Triamterene/Hctz 37.5-25MG) 1 Tab Tab 1 TAB PO DAILY, TAB Admission Information HPI (per Admitting provider): 51-year-old male followed by Dr. Cifuentes. History of hypertension and hepatitis C. Prolonged critical illness in 2012 due to sepsis from septic pulmonary emboli. Developed fever and cough about 3 days prior to admission. Cough productive of green sputum. Now experiencing fever, chills, sweats, worsening dyspnea. Chest pain with coughing. Some nausea without emesis; no diarrhea. . Physical Exam (per Admitting): General Appearance: WD/WN, + moderate distress Head: normocephalic, atraumatic Eyes: normal inspection, PERRL, EOMI, sclerae normal ENT: + pertinent finding (edentulous, pharyngeal erythema) Neck: supple, no adenopathy, thyroid normal, no JVD, trachea midline, + pertinent finding (healed tracheostomy scar) Respiratory/Chest: + accessory muscle use, + rhonchi, + wheezing Cardiovascular: regular rate, rhythm, no edema, no gallop, no JVD, no murmur , + tachycardia Abdomen/GI: normal bowel sounds, non tender, soft, no organomegaly, no pulsatile mass Extremities/Musculoskelatal: normal inspection, no calf tenderness, no pedal edema Neurologic/Psych: choral teacher II-XII nml as tested (PERRL, EOMI, no facial palsy, no dysarthria), alert, oriented x 3 Skin: no rash, + diaphoresis Lymphatic: no adenopathy Hospital Course PNEUMONIA Acutely ill- fever, tachycardia. Meets criteria for sepsis Serum lactate normal. WBC trend down to normal CXR showed showed bibasilar parenchymal infiltrative change Blood cx no growth and sputum culture pending Continue IV levofloxacin and piperacillin / tazobactam Duoneb treatment Flu test negative Will discharge today on levaquin PO ACUTE HYPOXIC RESPIRATORY FAILURE Tachypneic, using accessory muscles of respiration on admission Secondary to Pneumonia CTA chest showed consolidative infiltrates right midlung, right base, and to lesser extent left base. Negative for PE O2 sats as low as 81% on RA. Continue supplemental O2 as needed. Levalbuterol / ipratropium nebs for bronchospasm. saturated at 93% on RA feels much better ELECTROLYTES IMBALANCE Stable continue monitor bmp and mg HYPERTENSION BP started to elevate resumed triamterene continue monitor BP on enalapril prn MEDIASTINAL AND HILAR ADENOPATHY outpatient follow-up CT at appropriate time interval PAIN MANAGEMENT Continue usual dose of buprenorphine-naloxone. HEPATITIS C Followed by GI. Has not received antiviral Rx thus far. VTE PROPHYLAXIS Moderately high risk for VTE. SQ enoxaparin. Ambulate as able. RESUSCITATION STATUS Full code. DISPOSITION Expected discharge to home today Follow-up with Dr. Cifuentes on January 16 at 3:30 pm Total time spent on discharge = 35 minutes This includes examination of the patient, discharge planning, medication reconciliation, and communication with other providers. Discharge Instructions Discharge Instructions Date of Service Jan 12, 2017. Admission Reason for Admission: Acute Hypoxic Respiratory failure Discharge Discharge Diagnosis / Problem: Pneumonia, Cough, Electrolytes imbalance, Hypertension Discharge Goals Goal(s): Decrease discomfort, Improve function Activity Recommendations Activity Limitations: resume your previous activity (as tolerated) . Instructions / Follow-Up Instructions / Follow-Up Follow up with your physician Dr. Cifuentes on January 16 @ 3:30 pm Monitor potassium and Magnesium Complete the course of levaquin use Ventolin inhaler as needed for SOB Seek medical attention if SOB worsening Increase potassium intake in diet (such as banana) Current Hospital Diet Patient's current hospital diet: Regular Diet Discharge Diet Recommended Diet: Low Sodium Diet (2gm Na) Pending Studies Studies pending at discharge: no Medical Emergencies . Who to Call and When: Medical Emergencies: If at any time you feel your situation is an emergency, please call 911 immediately. . Non-Emergent Contact Non-Emergency issues call your: Primary Care Provider Call Non-Emergent contact if: you have a fever, you have any medication questions . . "Provider Documentation" section prepared by Gilson Mak. VTE Core Measure Inpt VTE Proph given/why not?: Enoxaparin (Lovenox)SQ Additional Copies To Nithin Cifuentes M.D.
== END 2017-01-12 19:28 | disposition home or self-care (01) | DRG 871 ==
LOC: ENRESERVTM → ENRESERVDT → C.EDB 15:11 → C.2E 19:38 → C.4E 01-09 13:31
PROVIDERS: ADMIT Hospitalist; ATTEND Internal Medicine
DX: A41.9 Sepsis, unspecified organism (principal); J18.9 Pneumonia, unspecified organism; J96.01 Acute respiratory failure with hypoxia; Z79.899 Other long term (current) drug therapy; F17.210 Nicotine dependence, cigarettes, uncomplicated; E87.6 Hypokalemia; I10 Essential (primary) hypertension

== ENCOUNTER 2018-01-16 12:08 | Inpatient (IN) | payer OTHER ==
[~2018-01-16] VITALS: Ht 175.3 cm; Wt 93.5 kg
[~2018-01-16 12:08] MED LIST: BUPR-79 PO; BUPR8MIS PO; DICL-201 PO; LVQ750 PO; MULT-506 PO; OMEP20TA PO; TRIATAB3 PO
[2018-01-16] MEDS ORDERED: SODIUM CHLORIDE 0.9% 1000ML 1,000 ML IV STA (12:47)
[2018-01-16] MEDS ORDERED: ONDANSETRON INJ 2 MG/ML 2 ML VIAL IV STA (12:47)
[2018-01-16 13:12] LABS: HEMATOCRIT 38.4 % (42-52); MEAN CELL VOLUME 84.8 fL (80-100); MEAN CORPUSCULAR HEMOGLOBIN 28.7 pg (25-34); MEAN CORPUSCULAR HGB CONC 33.9 g/dl (32-36); MEAN PLATELET VOLUME 10.3 fL (7.4-10.4); NUCLEATED RED BLOOD CELL ABS 0.02 K/uL (0-0); PLATELET COUNT 221 K/uL (130-400); RED CELL DISTRIBUTION WIDTH CV 14.6 % (11.5-14.5); RED CELL DISTRIBUTION WIDTH SD 45.2 fL (36.4-46.3); WHITE BLOOD COUNT 23.34 K/uL (4.8-10.8)
[2018-01-16 13:25] LABS: INR 1.3 (0.9-1.1); PTT PATIENT 28.5 SECONDS (21.0-31.0)
[2018-01-16 13:28] LABS: ALT/SGPT 23 U/L (12-78); AST/SGOT 14 U/L (15-37); BLOOD UREA NITROGEN 25 mg/dl (7-18); CALCIUM 8.4 mg/dl (8.5-10.1); CARBON DIOXIDE 28 mmol/L (21-32); CREATININE 1.57 mg/dl (0.60-1.40); GLUCOSE 115 mg/dl (70-99); LIPASE 175 U/L (73-393); POTASSIUM 2.9 mmol/L (3.5-5.1); SODIUM 132 mmol/L (136-145)
[2018-01-16 13:30] LABS: BASO % 0.2 %; BASO ABS # 0.04 K/uL (0-0.2); IG# 0.14 K/uL (0.00-0.02); LYMPH % 5.2 %; LYMPH ABS # 1.21 K/uL (1.2-3.4); MONO % 5.1 %; MONO ABS # 1.18 K/uL (0.11-0.59); NEUT % 88.9 %; NEUT ABS # 20.77 K/uL (1.4-6.5)
[2018-01-16] MEDS ORDERED: MULT-506 PO (13:30)
[2018-01-16] MEDS ORDERED: DOCU-94 PO (13:30)
[2018-01-16 13:33] LABS: ALKALINE PHOSPHATASE 107 U/L (45-117); CKMB < 0.5 ng/ml (0.5-3.6); TOTAL PROTEIN 7.1 gm/dl (6.4-8.2)
--- NOTE | 2018-01-16 13:39 | DIAGNOSTIC IMAGING REPORT ---
ABDOMEN 2VIEW W/PA CHEST RTN CLINICAL HISTORY: Abdominal pain and diarrhea COMPARISON STUDY: 01/07/2017 FINDINGS: The erect chest reveals no free intraperitoneal air. The heart is mildly enlarged. There is no focal pulmonary consolidation. A calcified granuloma within the right midlung zone. Erect and supine views the abdomen reveal no abnormally dilated loops of large or small bowel. There are no transition zones indicate bowel obstruction. There are scattered nonspecific air-fluid levels. Postsurgical changes involve the left hip. IMPRESSION: Scattered nonspecific air-fluid levels. No evidence of bowel obstruction. No evidence of free air. Electronically signed by: Rafi Decker M.D. 01/16/2018 1:38 PM Dictated Date/Time: 01/16/2018 1:37 PM
[2018-01-16] MEDS ORDERED: VANCOMYCIN CONSULT ACTIVE PRN ×2 (13:45→18:15)
[2018-01-16] MEDS ORDERED: POTASSIUM CHLORIDE 10 MEQ / 100ML WTR IV STA (13:45)
[2018-01-16] MEDS ORDERED: PIPERACILLIN/TAZOBACTAM 4.5 GM/100ML D5W IV STA (13:45)
[2018-01-16] MEDS ORDERED: VANCOMYCIN IV 1,800 MG in SODIUM CHLORIDE 0.9% 500ML 500 ML IV STA (13:45)
[2018-01-16] MEDS ORDERED: OPTIRAY 320 IV PRN (14:00)
[2018-01-16] MEDS ORDERED: ONDANSETRON INJ 2 MG/ML 2 ML VIAL IV PRN (14:30)
[2018-01-16] MEDS ORDERED: PRED10TA PO (14:42)
[2018-01-16] MEDS ORDERED: SODIUM CHLORIDE 0.9% 1000ML 1,000 ML IV SCH (14:45)
--- NOTE | 2018-01-16 15:11 | DIAGNOSTIC IMAGING REPORT ---
CT SCAN OF THE ABDOMEN AND PELVIS WITH IV CONTRAST CLINICAL HISTORY: Generalized abdominal pain. Nausea and vomiting. Leukocytosis. COMPARISON STUDY: Abdominal CT dated 04/05/2013. TECHNIQUE: Following the IV administration of 66 cc of Optiray 320, CT scan of the abdomen and pelvis is performed from the lung bases to the proximal femora. Images are reviewed in the axial, sagittal, and coronal planes. IV contrast was administered without complication. A dose lowering technique was utilized adhering to the principles of ALARA. CT DOSE: 986.08 mGycm FINDINGS: Lung bases: The heart is normal in size and without pericardial effusion. A fat-containing Bochdalek hernia is noted at the left lung base. Emphysematous change is suspected. There are foci of bibasilar scarring/atelectasis. Minimal tree-in-bud airspace opacities are present at the left lung base. No lobar consolidation or pleural effusion is identified. There is a small hiatal hernia. Liver: The contrast-enhanced liver is enlarged, measuring 19.8 cm in length. The liver demonstrates diffusely diminished attenuation consistent with hepatic steatosis. There is no intrahepatic biliary ductal dilatation. The hepatic veins and portal veins are patent. Gallbladder: The gallbladder is distended but otherwise normal in appearance. Spleen: The spleen is mildly enlarged measuring 14 cm in length. Pancreas: Unremarkable. Adrenal glands: Unremarkable. Kidneys: The contrast enhanced kidneys demonstrate mild cortical atrophy and are without hydronephrosis. The kidneys enhance symmetrically. Abdominal vasculature: The abdominal aorta is normal in course and caliber noting mild atherosclerotic calcification. Bowel: The small bowel and colon are normal in course and caliber. The appendix is well-visualized and normal. Peritoneum: There is no intraperitoneal free air or abdominal ascites. There is a fat-containing umbilical hernia. Lymphadenopathy: None. Pelvic viscera: The bladder, prostate, and seminal vesicles are normal as visualized. Skeletal structures: The skeletal structures appear osteopenic. There is a mild superior endplate compression deformity of T11. No lytic or blastic lesions are seen. Chronic posttraumatic deformity and postoperative changes noted in the left proximal femur. IMPRESSION: 1. There are no acute infectious or inflammatory findings in the abdomen or pelvis. 2. Tree-in-bud airspace opacities are noted at the left lung base. Correlate clinically for evidence of an infectious/inflammatory pneumonitis. 3. Hepatomegaly and hepatic steatosis. 4. Splenomegaly. 5. Additional findings as above. Electronically signed by: Son Pena M.D. 01/16/2018 3:09 PM Dictated Date/Time: 01/16/2018 2:53 PM
[2018-01-16 16:00] VITALS: BP 111/74; PULSE 111; TEMP 37.6; O2SAT 95; Ht 175.3 cm; Wt 93.5 kg
[2018-01-16] MEDS ORDERED: PIPERACILL/TAZOBAC CONSULT ACTIVE PRN (16:24)
--- NOTE | 2018-01-16 16:40 | History and Physical ---
History & Physical Date of Service Jan 16, 2018. History & Physical This is a 52 year old male with a PMH of IV drug abuse (heroin), bath salts and other illicit drug use; now off of heroin and IV drug use; on chronic Suboxone therapy, hx. of septic emboli/MRSA pneumonia and pneumothorax requiring a life flight transfer to [facility] in 2012 - presents with nausea/vomiting/ diarrhea for over a week. States it was intermittent until yesterday, when symptoms worsened. States that his last episode of vomiting was last evening, but he felt so weak that he presented to the ED. States that he had been taking prednisone for a R shoulder pain. On presentation, found to have elevated white count, tachycardia, acute kidney injury and significant dehydration. Patient's nausea/vomiting improved; his main symptoms now is weakness. Denies fevers/chills, denies chest pain/shortness of breath/palpitations; denies abdominal pain. VITALS: Last Vital Signs Documentation Date Time Temp Pulse Resp B/P (MAP) Pulse Ox O2 Delivery O2 Flow Rate FiO2 01/16/18 14:31 116 20 106/84 95 Nasal Cannula 2.0 01/16/18 12:15 37.3 GEN: no acute distress, acutely ill appearing HEENT: NC/AT CVS: +S1, S2, tachycardic, regular rhythm LUNGS: CTA b/l, no wheezing or rhonchi appreciated ABD: soft, NT/ND, normoactive bowel sounds EXT: no edema Plan: patient presents with white count/tachycardia, meets sepsis criteria leukocytosis may be a combination of dehydration, steroid use; possible underlying pneumonia vs. UTI cultures are pending started on Zosyn for now acute kidney injury, dehydration, hypokalemia/hypomagnesemia - replace electrolytes, giving IVFs, recheck in AM. recheck kidney function, electrolytes in AM; check procalcitonin in AM
[2018-01-16] MEDS: MAGNESIUM SULFATE 1GM / D5W 1 GM in PREMIXED IN D5W 100 ML IV SCH ×2 (17:08→17:56)
[2018-01-16] MEDS: NSS + 20MEQ KCL 1000ML 1,000 ML IV SCH (17:09)
[2018-01-16] MEDS: POTASSIUM CHLR 10 MEQ / WTR 10 MEQ in PREMIXED WATER 100 ML IV SCH ×4 (17:12→21:45)
--- NOTE | 2018-01-16 17:23 | EMERGENCY ROOM VISIT NOTE ---
ED Visit Note First contact with patient: 12:21 The patient was seen and examined with Inocencio Mata PA-C. I agree with the history, physical and findings. Please see the note for disposition and details.
--- NOTE | 2018-01-16 17:53 | History and Physical ---
History & Physical Date & Time of Service: Jan 16, 2018 ~ 14:00 Chief Complaint: Nausea, vomiting, diarrhea Primary Care Physician: Nithin Cifuentes M.D. History of Present Illness 52-year-old male who presents to the ER with a chief complaint of nausea, vomiting, and diarrhea. Patient reports he has not been feeling well for approximately the past 1 week. He reports initially when he describes as flulike symptoms. He had generalized body aches with a mild headache. He reports symptoms would come and go. For the past 2 days however he has had persistent nausea, vomiting, and diarrhea. He denies any hematemesis or coffee- ground emesis. No bright red bleeding per rectum or dark tarry stools. He denies fever and chills. No cough or sputum production. He denies lightheadedness, dizziness, diaphoresis, and syncopal events. He denies urinary symptoms. Of note, patient size PCP approximately 2 weeks ago for right shoulder pain. He was prescribed a prednisone taper. He reports improvement in the right shoulder pain. In the ED, patient was found to be hypokalemic with a potassium of 2.9 and AK I with a creatinine of 1.5. White blood cell count is 20 3K he was tachycardic in the 130s. Blood pressure remained stable. Lactic acid is normal. Heart rate improved with IVF. He was also given IV Vanco and Zosyn. Past Medical/Surgical History Medical Problems: (1) Chronic hepatitis C Permanent Comment: spontaneously cleared 10/2017 Status: Chronic (2) Depression Status: Chronic (3) History of MRSA infection of lungs Status: Chronic (4) History of septic embolism Status: Chronic (5) History of SIADH Status: Chronic (6) Nocturnal hypoxia Status: Chronic (7) Thyroid nodule Status: Chronic Surgical Problems: (1) History of dental surgery Status: Chronic (2) History of laryngoscopy Permanent Comment: laryngoscopy removal tumor microscope and reconstruction Status: Chronic (3) History of left hip replacement Status: Resolved (4) History of open reduction and internal fixation (ORIF) procedure Status: Chronic (5) S/p alveoloplasty Status: Chronic (6) S/p excision of tongue lesion Status: Chronic (7) S/p thoracoscopy Permanent Comment: thoracoscopy surgical partial pulmonary decortication Status: Chronic (8) S/P tonsillectomy Status: Chronic (9) Status post tracheostomy Status: Chronic Family History Hypertension FATHER MOTHER Social History Smoking Status: Former Smoker Alcohol Use: Former heavy alcohol use Drug Use: other (Former IV drug user, last use in 2012) Immunizations History of Influenza Vaccine: Yes Influenza Vaccine Date: Oct 30, 2017 History of Tetanus Vaccine?: Yes Tetanus Immunization Date: Feb 01, 2014 History of Pneumococcal: Yes Pneumococcal Date: Jul 02, 2013 Allergies Coded Allergies: No Known Allergies (Unverified , 01/16/18) Home Medications Scheduled Buprenorphine Hcl-Naloxone Hcl (Suboxone 8-2 Mg), 1 TAB PO BID Bupropion (Wellbutrin Sr), 150 MG PO BID Diclofenac (Voltaren), 75 MG PO BIDM Docusate Sodium (Colace), 1 CAP PO BID Multivitamin (Multivitamin), 1 TAB PO DAILY Omeprazole (Omeprazole), 20 MG PO BID Triamterene/Hctz (Triamterene/Hctz 37.5-25MG), 1 TAB PO DAILY Miscellaneous Medications Prednisone Tab (Prednisone), 10 MG PO Review of Systems ROS per HPI, all other systems reviewed and negative Physical Exam Vital Signs Date Time Temp Pulse Resp B/P (MAP) Pulse Ox O2 Delivery O2 Flow Rate FiO2 01/16/18 14:31 116 20 106/84 95 Nasal Cannula 2.0 01/16/18 12:46 132 01/16/18 12:15 37.3 142 20 116/72 92 Room Air General Appearance: WD/WN, no apparent distress Head: normocephalic, atraumatic Eyes: normal inspection, EOMI, sclerae normal ENT: hearing grossly normal, + pertinent finding (Mucous membranes dry) Neck: supple, no JVD, trachea midline Respiratory/Chest: lungs clear, normal breath sounds, no respiratory distress Cardiovascular: no edema, normal peripheral pulses, + tachycardia (Regular rhythm) Abdomen/GI: normal bowel sounds, soft, no organomegaly, + tenderness (Mild, generalized) Back: no CVA tenderness Extremities/Musculoskelatal: normal inspection, no calf tenderness, normal capillary refill Neurologic/Psych: no motor/sensory deficits, alert, normal mood/affect, oriented x 3 Skin: normal color, warm/dry Diagnostics Laboratory Results Results Past 24 Hours Test 01/16/18 12:47 01/16/18 12:55 01/16/18 13:05 01/16/18 13:10 Range/Units Creatine Kinase MB Ratio 0-3.0 White Blood Count 23.34 4.8-10.8 K/uL Red Blood Count 4.53 4.7-6.1 M/uL Hemoglobin 13.0 14.0-18.0 g/dL Hematocrit 38.4 42-52 % Mean Corpuscular Volume 84.8 80-100 fL Mean Corpuscular Hemoglobin 28.7 25-34 pg Mean Corpuscular Hemoglobin Concent 33.9 32-36 g/dl Platelet Count 221 130-400 K/uL Mean Platelet Volume 10.3 7.4-10.4 fL Neutrophils (%) (Auto) 88.9 % Lymphocytes (%) (Auto) 5.2 % Monocytes (%) (Auto) 5.1 % Eosinophils (%) (Auto) 0.0 % Basophils (%) (Auto) 0.2 % Neutrophils # (Auto) 20.77 1.4-6.5 K/uL Lymphocytes # (Auto) 1.21 1.2-3.4 K/uL Monocytes # (Auto) 1.18 0.11-0.59 K/uL Eosinophils # (Auto) 0.00 0-0.5 K/uL Basophils # (Auto) 0.04 0-0.2 K/uL RDW Standard Deviation 45.2 36.4-46.3 fL RDW Coefficient of Variation 14.6 11.5-14.5 % Immature Granulocyte % (Auto) 0.6 % Immature Granulocyte # (Auto) 0.14 0.00-0.02 K/uL Nucleated RBC Absolute Count (auto) 0.02 0-0 K/uL Nucleated Red Blood Cells % 0.1 % Prothrombin Time 13.8 9.0-12.0 SECONDS Prothromb Time International Ratio 1.3 0.9-1.1 Activated Partial Thromboplast Time 28.5 21.0-31.0 SECONDS Partial Thromboplastin Ratio 1.1 Sodium Level 132 136-145 mmol/L Potassium Level 2.9 3.5-5.1 mmol/L Chloride Level 94 98-107 mmol/L Carbon Dioxide Level 28 21-32 mmol/L Anion Gap 10.0 3-11 mmol/L Blood Urea Nitrogen 25 7-18 mg/dl Creatinine 1.57 0.60-1.40 mg/dl Est Creatinine Clear Calc Drug Dose 61.9 ml/min Estimated GFR () 58.3 Estimated GFR (Non- 50.3 BUN/Creatinine Ratio 15.9 10-20 Random Glucose 115 70-99 mg/dl Calcium Level 8.4 8.5-10.1 mg/dl Magnesium Level 1.4 1.8-2.4 mg/dl Total Bilirubin 1.9 0.2-1 mg/dl Direct Bilirubin 0.4 0-0.2 mg/dl Aspartate Amino Transf (AST/SGOT) 14 15-37 U/L Alanine Aminotransferase (ALT/SGPT) 23 12-78 U/L Alkaline Phosphatase 107 45-117 U/L Creatine Kinase MB < 0.5 0.5-3.6 ng/ml Total Protein 7.1 6.4-8.2 gm/dl Albumin 3.0 3.4-5.0 gm/dl Lipase 175 73-393 U/L Bedside Troponin I < 0.030 0-0.045 ng/ml Urine Color DK YELLOW Urine Appearance CLEAR CLEAR Urine pH 6.5 4.5-7.5 Urine Specific [place] 1.025 1.000-1.030 Urine Protein 2+ NEG Urine Glucose (UA) NEG NEG Urine Ketones 1+ NEG Urine Occult Blood NEG NEG Urine Nitrite POS NEG Urine Bilirubin NEG NEG Urine Urobilinogen NEG NEG Urine Leukocyte Esterase SMALL NEG Urine WBC (Auto) 10-30 0-5 /hpf Urine RBC (Auto) 0-4 0-4 /hpf Urine Hyaline Casts (Auto) 1-5 0-5 /lpf Urine Epithelial Cells (Auto) 0-5 0-5 /lpf Urine Bacteria (Auto) 2+ NEG Urine Crystals See comments NONE PRSENT Urine Yeast (Auto) NONE PRSENT Test 01/16/18 13:28 01/16/18 14:08 01/16/18 14:25 Range/Units Bedside Lactic Acid Venous 1.20 0.90-1.70 mmol/L Lactic Acid Level 1.3 0.4-2.0 mmol/L Ammonia 39.2 11-32 umol/L Microbiology Results 01/16/18 Blood Culture, Received Pending 01/16/18 Blood Culture, Received Pending 01/16/18 Urine Culture, Received Pending Diagnostic Radiology ABD/CXR IMPRESSION: Scattered nonspecific air-fluid levels. No evidence of bowel obstruction. No evidence of free air. CT ABD/PELVIS IMPRESSION: 1. There are no acute infectious or inflammatory findings in the abdomen or pelvis. 2. Tree-in-bud airspace opacities are noted at the left lung base. Correlate clinically for evidence of an infectious/inflammatory pneumonitis. 3. Hepatomegaly and hepatic steatosis. 4. Splenomegaly. 5. Additional findings as above. Impression Assessment and Plan NAUSEA, VOMITING, DIARRHEA POSSIBLE SEPSIS PNEUMONIA, POSSIBLE ASPIRATION POSSIBLE UTI -Admit patient to telemetry -Patient presenting with nausea, vomiting, diarrhea 2 days -On presentation, WBC 23K, tachycardic in the 130s; afebrile, lactic acid normal , BP stable -Suspect that recent prednisone use and dehydration is contributing to leukocytosis and tachycardia -Heart rate improved with IVF -CT ABD pelvis negative for acute abdominal findings, possible left basilar pneumonia noted -Possible viral gastroenteritis -Question aspiration with the several episodes of vomiting -U/A suggest possible UTI -S/P Vanco and Zosyn in the ED; will continue with Zosyn only for now, check MRSA nasal swab and add Vanco back if positive -Blood and urine culture -Check stool studies RUBEN -Prerenal due to vomiting and diarrhea in combination with HCTZ use -IVF, follow renal functions and avoid nephrotoxic agents when able HYPOKALEMIA, HYPOMAGNESEMIA -Due to GI losses -Replace potassium and magnesium HISTORY OF HEPATITIS C -spontaneously cleared the virus as per labs earlier this year HISTORY OF IV DRUG ABUSE -On Suboxone, will continue -We will contact Suboxone clinic tomorrow to confirm dose DVT PROPHYLAXIS -SQ heparin DISPOSITION - In my clinical judgment this beneficiary meets acute admission criteria, established by [facility], that includes being hospitalized through two midnights. Resuscitation Status VTE Prophylaxis Will order VTE Prophylaxis: Yes
--- NOTE | 2018-01-16 19:17 | EMERGENCY ROOM VISIT NOTE ---
ED Visit Note First contact with patient: 12:21 Chief Complaint: Abdominal pain, nausea, vomiting and diarrhea. History of Present Illness: Mr. Meyer is a 52 year-old white male complaining of diffuse abdominal pain with nausea, vomiting and diarrhea for the last 7 days. Historically patient reports history of hepatitis C, MRSA and septic emboli. Should be reported initially patient is a poor historian believe to be due to his current illness. Patient reports he has been having diffuse, with bilateral lower quadrant, abdominal pain for the last 7 days. He could not relay how the pain started. He was unable to describe his discomfort. Currently he rates his discomfort 5/ 10. He denies radiation of his pain. Associated with his pain he reports he has been constantly nauseated with 2-3 episodes of vomiting per day; vomitus is described as bilious, with the last day of dry heaving. Additionally he reports he has been having black/tarry stools for the last 3 days. He has been taking his prescribed medications but has not taken any additional medications for his symptoms. Associated with his symptoms he reports he is feels like he has a fever but has not checked his temperature, he has a decreased appetite, he is feeling very fatigued and reports he has been having body aches. He denies skin eruptions, skin color changes, headache, lightheadedness, dizziness, upper respiratory tract symptoms, cough, wheezing, shortness of breath, chest pain, palpitations, bloody vomitus, urinary symptoms, hematuria, back/flank pain, previous GI bleeds. Review of Systems: As noted above in history of present illness. All body systems were reviewed and found to be negative as noted above. Past Medical History: Depression, SIADH, nocturnal hypoxia, thyroid nodule, status post laparoscopy, left hip replacement, alveoloplasty, excision of tongue lesion, thoracoscopy, tonsillectomy, tracheostomy Current Medications: Medications Dose Route/Sig Max Daily Dose Days Date Category Dose Instructions Prednisone 10 Mg Tab 10 Mg PO 01/16/18 Reported finishing a taper - has 2 tabs x 1 day and 1 tab x 2 days left Colace (Docusate Sodium) 100 Mg Cap 1 Cap PO BID 01/16/18 Reported Multivitamin (Multivitamins) Tab 1 Tab PO DAILY 01/16/18 Reported Omeprazole 20 Mg Tab 20 Mg PO BID 01/07/17 Reported Suboxone 8-2 Mg (Buprenorphine Hcl-Naloxone Hcl) 1 Mis Mis 1 Tab PO BID 01/07/17 Reported Voltaren (Diclofenac Sodium) 75 Mg Tabcr 75 Mg PO BIDM 01/07/17 Reported WITH FOOD Wellbutrin Sr (Bupropion HCl) 150 Mg Ertab 150 Mg PO BID 01/07/17 Reported Triamterene/Hctz 37.5-25MG (Triamterene/HCTZ) 1 Tab Tab 1 Tab PO DAILY 01/07/17 Reported Allergies to Medications: Patient denies. Social History: Patient is not currently employed; he feels safe in his home environment; he admits to tobacco use. Physical Examination: Vital Signs: Date Time Temp Pulse Resp B/P (MAP) Pulse Ox O2 Delivery O2 Flow Rate FiO2 01/16/18 14:31 116 20 106/84 95 Nasal Cannula 2.0 01/16/18 12:46 132 01/16/18 12:15 37.3 142 20 116/72 92 Room Air GENERAL: 52-year-old male in mild to moderate distress due to symptoms, toxic- appearing, afebrile and hemodynamically stable. NEUROLOGICAL: Awake, alert and oriented to person and place but not time. Had difficulty answering my questions but was able to follow commands. Good hand eye coordination. Cranial nerves II through XII grossly intact. SKIN: Warm, dry and pink. No soft tissue eruptions or trauma noted. HEENT: Atraumatic and normocephalic. PERRLA. EOMI. Sclera white and conjunctiva pink. Oral cavity dry and pink. Pharynx is nonerythematous or edematous. Speech normal. No lymphadenopathy. Trachea midline. No jugular venous distention. BACK: No tenderness over the bony spine. No CVA tenderness. THORAX: Lungs sounds are clear to auscultation and equal bilaterally with symmetrical chest wall. No wheezing, rales or rhonchi. No crepitus, tenderness , subcutaneous air or deformities noted. HEART: Regular rate and rhythm. No gallops, rubs or murmurs are appreciated. ABDOMEN: Distended and soft with mild bilateral lower quadrant tenderness. He also has a umbilical hernia that is tender to palpation. Decreased bowel sounds in all quadrants. No guarding, rigidity or organomegaly. EXTREMITIES: Moves all extremities well on command and with purpose. All distal neurovascular statuses are intact and equal bilaterally. ED Course: Patient is assessed as noted above. Laboratory Testing: Test 01/16/18 12:47 01/16/18 12:55 01/16/18 13:05 01/16/18 13:10 Range/Units Creatine Kinase MB Ratio 0-3.0 White Blood Count 23.34 4.8-10.8 K/uL Red Blood Count 4.53 4.7-6.1 M/uL Hemoglobin 13.0 14.0-18.0 g/dL Hematocrit 38.4 42-52 % Mean Corpuscular Volume 84.8 80-100 fL Mean Corpuscular Hemoglobin 28.7 25-34 pg Mean Corpuscular Hemoglobin Concent 33.9 32-36 g/dl Platelet Count 221 130-400 K/uL Mean Platelet Volume 10.3 7.4-10.4 fL Neutrophils (%) (Auto) 88.9 % Lymphocytes (%) (Auto) 5.2 % Monocytes (%) (Auto) 5.1 % Eosinophils (%) (Auto) 0.0 % Basophils (%) (Auto) 0.2 % Neutrophils # (Auto) 20.77 1.4-6.5 K/uL Lymphocytes # (Auto) 1.21 1.2-3.4 K/uL Monocytes # (Auto) 1.18 0.11-0.59 K/uL Eosinophils # (Auto) 0.00 0-0.5 K/uL Basophils # (Auto) 0.04 0-0.2 K/uL RDW Standard Deviation 45.2 36.4-46.3 fL RDW Coefficient of Variation 14.6 11.5-14.5 % Immature Granulocyte % (Auto) 0.6 % Immature Granulocyte # (Auto) 0.14 0.00-0.02 K/uL Nucleated RBC Absolute Count (auto) 0.02 0-0 K/uL Nucleated Red Blood Cells % 0.1 % Prothrombin Time 13.8 9.0-12.0 SECONDS Prothromb Time International Ratio 1.3 0.9-1.1 Activated Partial Thromboplast Time 28.5 21.0-31.0 SECONDS Partial Thromboplastin Ratio 1.1 Sodium Level 132 136-145 mmol/L Potassium Level 2.9 3.5-5.1 mmol/L Chloride Level 94 98-107 mmol/L Carbon Dioxide Level 28 21-32 mmol/L Anion Gap 10.0 3-11 mmol/L Blood Urea Nitrogen 25 7-18 mg/dl Creatinine 1.57 0.60-1.40 mg/dl Est Creatinine Clear Calc Drug Dose 61.9 ml/min Estimated GFR () 58.3 Estimated GFR (Non- 50.3 BUN/Creatinine Ratio 15.9 10-20 Random Glucose 115 70-99 mg/dl Calcium Level 8.4 8.5-10.1 mg/dl Magnesium Level 1.4 1.8-2.4 mg/dl Total Bilirubin 1.9 0.2-1 mg/dl Direct Bilirubin 0.4 0-0.2 mg/dl Aspartate Amino Transf (AST/SGOT) 14 15-37 U/L Alanine Aminotransferase (ALT/SGPT) 23 12-78 U/L Alkaline Phosphatase 107 45-117 U/L Creatine Kinase MB < 0.5 0.5-3.6 ng/ml Total Protein 7.1 6.4-8.2 gm/dl Albumin 3.0 3.4-5.0 gm/dl Lipase 175 73-393 U/L Bedside Troponin I < 0.030 0-0.045 ng/ml Urine Color DK YELLOW Urine Appearance CLEAR CLEAR Urine pH 6.5 4.5-7.5 Urine Specific [place] 1.025 1.000-1.030 Urine Protein 2+ NEG Urine Glucose (UA) NEG NEG Urine Ketones 1+ NEG Urine Occult Blood NEG NEG Urine Nitrite POS NEG Urine Bilirubin NEG NEG Urine Urobilinogen NEG NEG Urine Leukocyte Esterase SMALL NEG Urine WBC (Auto) 10-30 0-5 /hpf Urine RBC (Auto) 0-4 0-4 /hpf Urine Hyaline Casts (Auto) 1-5 0-5 /lpf Urine Epithelial Cells (Auto) 0-5 0-5 /lpf Urine Bacteria (Auto) 2+ NEG Urine Crystals See comments NONE PRSENT Urine Yeast (Auto) NONE PRSENT Test 01/16/18 13:28 01/16/18 14:08 01/16/18 14:25 Range/Units Bedside Lactic Acid Venous 1.20 0.90-1.70 mmol/L Lactic Acid Level 1.3 0.4-2.0 mmol/L Ammonia 39.2 11-32 umol/L Blood Culture: Pending Urine Culture: Pending Acute Abdominal X-Ray Series: Was read by myself and the radiologist showing a normal PA chest with no signs of infiltrates, effusions or pneumothorax. The heart silhouette is slightly enlarged. 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 Abdominal portion shows no free air or dilated loops of bowel. There are scattered nonspecific air-fluid levels but no signs of obstruction. IV Contrast Abdominal/Pelvic CT: Was reviewed by myself and read by the radiologist and shows no acute infectious or inflammatory findings in the abdomen or pelvis. Tree-in-bud space opacities in the left lung base, hepatomegaly and hepatic steatosis, splenomegaly or normal-appearing appendix no free air or ascites, fat-containing umbilical hernia. EKG: Was read by myself and reviewed with Dr. Lozoya; shows sinus tachycardia with ventricular rate of 133 bpm. Right bundle branch block was noted. No ischemic changes were noted. This was compared to a previous from December 2016 and no acute changes were noted. Patient was hydrated with normal saline and initially received 4 mg of Zofran IV for nausea. When patient's white blood cell count came back at 23,000 he was ordered and received 4.5 mg of Zosyn IV and 1800 mg of vancomycin IV. When patient's electrolytes came back and he was hypokalemic he received 10 mEq of potassium IV. Patient was reassessed multiple times during his stay in the emergency department. Patient's case was reviewed with Dr. Lozoya; we agreed on diagnostic approach, treatment, disposition and plan. Patient's case was reviewed with case management and Ms. Milla Palma, the [facility] for medical observation/admission. Patient was educated about today's findings. Clinical Impression: Abdominal pain. Leukocytosis. Hyponatremic, hypochloremic , and hypokalemic. Elevated BUN and creatinine. Decision-Making: Initially my differential diagnosis I considered ischemic bowel , bowel obstruction, incarcerated umbilical hernia, acute appendicitis with rupture, sepsis, urinary tract infection and other causes. Disposition and Plan: Patient to be brought into the hospital by the [facility]; please see their notes and orders for final disposition and plan.
[2018-01-16 20:00] VITALS: O2SAT 95
[2018-01-16 20:03] VITALS: BP 103/69; PULSE 104; TEMP 36.7; O2SAT 93
--- NOTE | 2018-01-16 20:22 | Pharmacy Progress Note ---
Pharmacy Abx Initial Consult Date of Service Jan 16, 2018. Pharmacy Dosing Scope Date of Consult: 01/16/18 Consultation requested by: Dr. David and Milla Palma Pharmacy is consulted to initiate Vancomycin/Zosyn IV dosing therapy, order appropriate labs and adjust drug dose/frequency. Subjective The patient is a 52 year old male admitted on Jan 16, 2018 at 14:28. Objective Height (Feet): 5 Height (Inches): 9.00 Weight (Kilograms): 90.300 Vital Signs (Past 12Hrs) Vital Signs Past 12 Hours Date Time Temp Pulse Resp B/P (MAP) Pulse Ox O2 Delivery O2 Flow Rate FiO2 01/16/18 20:03 36.7 104 18 103/69 (80) 93 Room Air 01/16/18 16:00 37.6 111 21 111/74 95 Nasal Cannula 2.0 01/16/18 14:31 116 20 106/84 95 Nasal Cannula 2.0 01/16/18 12:46 132 01/16/18 12:15 37.3 142 20 116/72 92 Room Air Lab Results (24Hrs) Laboratory Tests (24 Hours) Test 01/16/18 12:55 01/16/18 14:08 White Blood Count 23.34 K/uL (4.8-10.8) H Red Blood Count 4.53 M/uL (4.7-6.1) L Hemoglobin 13.0 g/dL (14.0-18.0) L Hematocrit 38.4 % (42-52) L Mean Corpuscular Volume 84.8 fL (80-100) Mean Corpuscular Hemoglobin 28.7 pg (25-34) Mean Corpuscular Hemoglobin Concent 33.9 g/dl (32-36) Platelet Count 221 K/uL (130-400) Mean Platelet Volume 10.3 fL (7.4-10.4) Neutrophils (%) (Auto) 88.9 % Lymphocytes (%) (Auto) 5.2 % Monocytes (%) (Auto) 5.1 % Eosinophils (%) (Auto) 0.0 % Basophils (%) (Auto) 0.2 % Neutrophils # (Auto) 20.77 K/uL (1.4-6.5) H Lymphocytes # (Auto) 1.21 K/uL (1.2-3.4) Monocytes # (Auto) 1.18 K/uL (0.11-0.59) H Eosinophils # (Auto) 0.00 K/uL (0-0.5) Basophils # (Auto) 0.04 K/uL (0-0.2) Lactic Acid Level 1.3 mmol/L (0.4-2.0) Micro Results Date/Time Source Procedure Growth Status 01/16/18 14:25 Blood Blood Culture Pending Received 01/16/18 14:08 Blood Blood Culture Pending Received 01/16/18 16:00 Nasal MRSA DNA Surveillance Screen - Final Specimen Positive for MRSA by DNA Probe Complete 01/16/18 13:10 Urine , Clean Catch Urine Culture Pending Received Assessment & Plan Assessment Mr. Meyer p/w leukocytosis, left shift, tachycardia. BC pending, UC pending. MRSA nares (+). Renal fxn elevated compared to baseline. Vancomycin dosed based on baseline renal fxn. Baseline population p'kinetics: t1/2=9hrs, ke=[id number]. If renal fxn doesn't improve it may be arias to adjust vancomycin interval. From an infectious standpoint there is concern for a urinary and/or pulmonary source. He has a h/o MRSA bacteremia. Plan Vancomycin: * Vanco 1800mg (20mg/kg) IV x1 given in ED * Vancomycin 1250mg (14mg/kg) q10 * Trough ordered 01/18/18 @0530 * Goal trough: 15-20mcg/mL Zosyn: * Appropriately dosed based on clinical status and habitus.
[2018-01-16] MEDS: BuPROPion SR 150 MG TABCR PO SCH (20:32)
[2018-01-16] MEDS: HEPARIN SOD 5000 UNIT/0.5 ML CARP SQ SCH (20:33)
[2018-01-16] MEDS: PANTOprazole SOD 40 MG TAB PO SCH (20:33)
[2018-01-16] MEDS: BUPRENORPHINE/NALOXONE 8/2 MG TAB PO SCH (20:34)
[2018-01-16] MEDS: PIPERACILL/TAZOBAC IV 3.375 GM in NSS 100ML IV SCH (20:35)
[2018-01-16] MEDS ORDERED: VANCOMYCIN IV 1,000 MG in SODIUM CHLORIDE 0.9% 250ML 250 ML IV SCH (21:00)
[2018-01-17] VITALS (8 sets, daily range): BP systolic 95–119; BP diastolic 64–77; PULSE 83–103; TEMP 36.5–37.9; O2SAT 94–98
[2018-01-17] MEDS: NSS + 20MEQ KCL 1000ML 1,000 ML IV SCH ×2 (00:37→10:35)
[2018-01-17] MEDS: VANCOMYCIN IV 1,250 MG in SODIUM CHLORIDE 0.9% 250ML 250 ML IV SCH ×3 (00:37→20:44)
[2018-01-17] MEDS: PIPERACILL/TAZOBAC IV 3.375 GM in NSS 100ML IV SCH ×3 (04:18→20:44)
[2018-01-17] MEDS: HEPARIN SOD 5000 UNIT/0.5 ML CARP SQ SCH ×2 (06:11→14:22)
[2018-01-17 06:17] LABS: HEMATOCRIT 32.7 % (42-52); HEMOGLOBIN 10.6 g/dL (14.0-18.0); MEAN CORPUSCULAR HEMOGLOBIN 28.2 pg (25-34); MEAN CORPUSCULAR HGB CONC 32.4 g/dl (32-36); MEAN PLATELET VOLUME 10.1 fL (7.4-10.4); PLATELET COUNT 154 K/uL (130-400); RED CELL DISTRIBUTION WIDTH CV 14.9 % (11.5-14.5); RED CELL DISTRIBUTION WIDTH SD 47.8 fL (36.4-46.3); WHITE BLOOD COUNT 11.64 K/uL (4.8-10.8)
[2018-01-17 06:39] LABS: ALBUMIN 2.3 gm/dl (3.4-5.0); CALCIUM 8.1 mg/dl (8.5-10.1); CREATININE 1.22 mg/dl (0.60-1.40); POTASSIUM 3.5 mmol/L (3.5-5.1); TOTAL PROTEIN 5.9 gm/dl (6.4-8.2)
[2018-01-17] MEDS: BUPRENORPHINE/NALOXONE 8/2 MG TAB PO SCH ×2 (08:59→16:13)
[2018-01-17] MEDS: BuPROPion SR 150 MG TABCR PO SCH ×2 (08:59→20:45)
[2018-01-17] MEDS: PANTOprazole SOD 40 MG TAB PO SCH ×2 (08:59→20:45)
[2018-01-17] MEDS: MULTIVITAMIN TAB PO SCH (08:59)
--- NOTE | 2018-01-17 09:14 | Pharmacy Progress Note ---
Pharmacy Abx Dose Short Note Date of Service Jan 17, 2018. Assessment & Plan Assessment 52 year old male receiving vancomycin and Zosyn for treatment of gram positive bacteremia/UTI/aspiration pneumonia with history of IVDU and MRSA pneumonia/ bacteremia. ID has now be consulted to evaluate patient. Day # 2 of antimicrobial therapy. Item Value Date Time MRSA DNA Surveillance Screen - Final Complete 01/16/18 1600 Nasal Specimen Positive for MRSA by DNA Probe Blood Culture - Preliminary Resulted 01/16/18 1425 Blood Gram Positive Cocci Blood Culture - Preliminary Resulted 01/16/18 1408 Blood Gram Positive Cocci Urine Culture Received 01/16/18 1310 Urine , Clean Catch Pending Renal function has returned to baseline but estimating current dose may produce a slightly supratherapeutic level. I'm hesitant to reduce the dose empirically with the current bacteremia. Will instead plan to obtain an earlier trough level to assess for accumulation. Plan Vancomycin * Continue dose of 1250 mg IV every 10 hours * Goal trough level for bacteremia : 15 to 20 mcg/mL * Trough level ordered sooner for: 01/17/18 prior to the 2000 dose Pharmacy will continue to follow and will adjust dose/frequency as necessary. Thank you.
--- NOTE | 2018-01-17 11:00 | Progress Note ---
Progress Note Date of Service Jan 17, 2018. Progress Note Called [facility] on 01/17/18 at 10:58. Confirmed pt's suboxone dose. Pt takes suboxone 8-2 SL BID.
--- NOTE | 2018-01-17 13:54 | Progress Note ---
Progress Note Date of Service Jan 17, 2018. Progress Note ID Consult Dictated #[id number] A/P: 1. GPC Septicemia - suspect s. aureus 2. Leukocytosis - improving -Continue abx, repeat blood cultures -Will need echo -would offer HIV testing, HCV viral load, UDS -Will follow, thank you
--- NOTE | 2018-01-17 14:20 | INFECT. DISEASE CONSULTATION ---
DATE OF CONSULTATION: 01/17/2018 HISTORY OF PRESENT ILLNESS: This is a 52-year-old gentleman who was admitted after he had an episode of nausea, vomiting and diarrhea. He has had myalgias and arthralgias off and on for the past week to 2 weeks and has not been feeling well. He denies any sick contacts. He denies any fevers or chills at home, but states he did not take his temperature and did not feel well. In the ER, he was found to have a temperature of 37.6, blood cultures were obtained and are growing gram positive cocci in 2/2 sets. He also had a urine culture which is growing Staph aureus. His UA had 10-30 wbc's and 2+ bacteria. He denies any urinary complaints or hematuria prior to admission. He denies any abdominal pain currently. He denies any additional nausea or vomiting. He states his weight is stable. He does have a history of intravenous drug use, but denies any current use for many years. He currently is on Suboxone therapy. He was placed empirically on vancomycin and Zosyn and is tolerating these well. He did have a CAT scan of the abdomen and pelvis which showed a left lower lobe infiltrate; however, he denies any cough or shortness of breath. His remaining review of systems is unremarkable. PAST MEDICAL HISTORY: Significant for hepatitis C, which per history cleared in 2018; depression, history of MRSA pneumonia, septic emboli, SIADH and thyroid nodule. PAST SURGICAL HISTORY: Significant for dental surgery, laryngoscopy, hip replacement, tongue surgery, thoracoscopy for a decortication, tonsillectomy and a history of tracheostomy. FAMILY HISTORY: Noncontributory. SOCIAL HISTORY: Significant for history of tobacco use, alcohol use and IV drug use is none since 2012. ALLERGIES: He denies any drug allergies. MEDICATIONS: Include Suboxone, multivitamin, vancomycin, subQ heparin, Wellbutrin, Protonix, Zosyn, Tylenol, and Zofran. PHYSICAL EXAMINATION: VITAL SIGNS: He is currently afebrile, pulse 85, respiratory rate is 16, blood pressure is 95/64, and oxygen saturation is 98% on room air. GENERAL: He is awake, alert and oriented x3. HEENT: Extraocular muscles are intact. Mucous membranes are moist. HEART: Regular. LUNGS: Clear. ABDOMEN: Soft. There is no edema. SKIN: Without rash. LABORATORY STUDIES: CBC today reveals a white blood cell count of 11.6 down from 23 yesterday, hemoglobin 10.6 and platelets of 154. Chemistry panel reveals a sodium of 136, potassium of 3.5, chloride 102, bicarbonate 28, BUN 20, creatinine 1.2, and glucose 95. LFTs are within normal limits. An ammonia level was 39.2. Procalcitonin is 1.49. UA shows small leukocyte esterase, 10-30 wbc's and +2 bacteria. Urine drug screen was not performed. A urine culture is growing Staph aureus. Blood cultures from the 5th are growing gram positive cocci. IMAGING DATA: CT is as above. Chest x-ray was unremarkable for acute process. IMPRESSION AND PLAN: Gram-positive septicemia, likely Staphylococcus aureus in a patient with history of hip replacement and history of septic emboli. He will remain on empiric antibiotics. Repeat blood cultures will be obtained. Echocardiogram should be obtained to rule out endocarditis. I would also recommend a urine drug screen, hepatitis C viral load as well as HIV testing assess, if this has not already been offered. We will follow along with you. Thank you for this consultation.
[2018-01-17] MEDS: VANCOMYCIN HCL 125 MG/2.5ML SOLN PO SCH ×2 (17:33→23:52)
[2018-01-17] MEDS: RASPBERRY SYRUP 5 ML UDP PO SCH ×2 (17:33→23:52)
--- NOTE | 2018-01-17 18:29 | Progress Note ---
Medicine Progress Note Date & Time of Visit: Jan 17, 2018 at 18:16. Subjective 52-year-old male with history of IV drug use presents to the ER with a history of abdominal pain nausea vomiting and diarrhea for 1 week. He also reports fevers and body aches. Blood cultures revealed staph aureus in the blood and infectious disease was consulted he was started on vancomycin and Zosyn empiric weight and remains on this until blood cultures result. He does feel clinically improved since yesterday. He denies any abdominal pain at this time and reports no nausea or vomiting. He is tolerating p.o. He does have excessive diarrhea and was found to have C. difficile. He reports an MRI in the last month but otherwise no needle sticks. He denies any IV drug use in the last year. He denies any anal intercourse. He reports not undergoing treatment for HCV and this was because viral load was undetectable to different instances tested 6 months apart. He otherwise denies any wounds or dental work. He denies any dysuria or UTI symptoms. Objective Last 8 Hrs Date Time Temp Pulse Resp B/P (MAP) Pulse Ox O2 Delivery O2 Flow Rate FiO2 01/17/18 16:00 Room Air 01/17/18 15:52 37.6 91 20 98/66 (77) 98 Nasal Cannula 2.0 01/17/18 12:00 Room Air 01/17/18 11:34 36.7 85 16 95/64 (74) 98 Room Air Physical Exam: GEN: WNWD, in no acute distress, alert and appropriate HEENT: NC/AT, PERRL, normal sclerae CARDIO: tachy rate, S1/2 heard without m/g/r LUNGS: CTA bilaterally, no crackles, rales or wheezes, good diaphragmatic excursion ABD: soft, non-tender, non-distended, no rebound or guarding, +BS EXTREMITY: RP and DP palpable 2+ bilat, no LE swelling or edema, extremities are warm and well-perfused NEURO: CN 2-12 grossly intact, no gross focal deficits. MUSC: 5/5 strength throughout, no gross focal deficits SKIN: warm and dry Laboratory Results: 01/17/18 05:52 01/17/18 05:52 Test 01/16/18 12:47 01/16/18 12:55 01/16/18 13:05 01/16/18 13:10 Creatine Kinase MB Ratio (0-3.0) Immature Granulocyte % (Auto) 0.6 % White Blood Count 23.34 K/uL (4.8-10.8) Red Blood Count 4.53 M/uL (4.7-6.1) Hemoglobin 13.0 g/dL (14.0-18.0) Hematocrit 38.4 % (42-52) Mean Corpuscular Volume 84.8 fL (80-100) Mean Corpuscular Hemoglobin 28.7 pg (25-34) Mean Corpuscular Hemoglobin Concent 33.9 g/dl (32-36) Platelet Count 221 K/uL (130-400) Mean Platelet Volume 10.3 fL (7.4-10.4) Neutrophils (%) (Auto) 88.9 % Lymphocytes (%) (Auto) 5.2 % Monocytes (%) (Auto) 5.1 % Eosinophils (%) (Auto) 0.0 % Basophils (%) (Auto) 0.2 % Neutrophils # (Auto) 20.77 K/uL (1.4-6.5) Lymphocytes # (Auto) 1.21 K/uL (1.2-3.4) Monocytes # (Auto) 1.18 K/uL (0.11-0.59) Eosinophils # (Auto) 0.00 K/uL (0-0.5) Basophils # (Auto) 0.04 K/uL (0-0.2) Immature Granulocyte # (Auto) 0.14 K/uL (0.00-0.02) Nucleated RBC Absolute Count (auto) 0.02 K/uL (0-0) Nucleated Red Blood Cells % 0.1 % Prothrombin Time 13.8 SECONDS (9.0-12.0) Prothromb Time International Ratio 1.3 (0.9-1.1) Activated Partial Thromboplast Time 28.5 SECONDS (21.0-31.0) Partial Thromboplastin Ratio 1.1 Direct Bilirubin 0.4 mg/dl (0-0.2) Creatine Kinase MB < 0.5 ng/ml (0.5-3.6) Lipase 175 U/L (73-393) Bedside Troponin I < 0.030 ng/ml (0-0.045) Urine Color DK YELLOW Urine Appearance CLEAR (CLEAR) Urine pH 6.5 (4.5-7.5) Urine Specific [place] 1.025 (1.000-1.030) Urine Protein 2+ (NEG) Urine Glucose (UA) NEG (NEG) Urine Ketones 1+ (NEG) Urine Occult Blood NEG (NEG) Urine Nitrite POS (NEG) Urine Bilirubin NEG (NEG) Urine Urobilinogen NEG (NEG) Urine Leukocyte Esterase SMALL (NEG) Urine WBC (Auto) 10-30 /hpf (0-5) Urine RBC (Auto) 0-4 /hpf (0-4) Urine Hyaline Casts (Auto) 1-5 /lpf (0-5) Urine Epithelial Cells (Auto) 0-5 /lpf (0-5) Urine Bacteria (Auto) 2+ (NEG) Urine Crystals See comments (NONE PRSENT) Urine Yeast (Auto) (NONE PRSENT) Test 01/16/18 13:28 01/16/18 14:08 01/16/18 14:25 01/17/18 05:52 Bedside Lactic Acid Venous 1.20 mmol/L (0.90-1.70) Lactic Acid Level 1.3 mmol/L (0.4-2.0) Ammonia 39.2 umol/L (11-32) Red Blood Count 3.76 M/uL (4.7-6.1) Mean Corpuscular Volume 87.0 fL (80-100) Mean Corpuscular Hemoglobin 28.2 pg (25-34) Mean Corpuscular Hemoglobin Concent 32.4 g/dl (32-36) RDW Standard Deviation 47.8 fL (36.4-46.3) RDW Coefficient of Variation 14.9 % (11.5-14.5) Mean Platelet Volume 10.1 fL (7.4-10.4) Anion Gap 6.0 mmol/L (3-11) Est Creatinine Clear Calc Drug Dose 79.6 ml/min Estimated GFR () 79.1 Estimated GFR (Non- 68.2 BUN/Creatinine Ratio 16.3 (10-20) Calcium Level 8.1 mg/dl (8.5-10.1) Magnesium Level 2.0 mg/dl (1.8-2.4) Total Bilirubin 1.5 mg/dl (0.2-1) Aspartate Amino Transf (AST/SGOT) 11 U/L (15-37) Alanine Aminotransferase (ALT/SGPT) 17 U/L (12-78) Alkaline Phosphatase 82 U/L (45-117) Total Protein 5.9 gm/dl (6.4-8.2) Albumin 2.3 gm/dl (3.4-5.0) Globulin 3.6 gm/dl (2.5-4.0) Albumin/Globulin Ratio 0.6 (0.9-2) Procalcitonin 1.49 ng/ml (0-0.5) Date/Time Source Procedure Growth Status 01/17/18 15:34 Blood Blood Culture Pending Received 01/16/18 16:00 Nasal MRSA DNA Surveillance Screen - Final Specimen Positive for MRSA by DNA Probe Complete 01/17/18 13:58 Stool Shiga Toxin Test Pending Received 01/17/18 13:58 Stool Stool Culture Pending Received 01/16/18 13:10 Urine , Clean Catch Urine Culture - Preliminary Staphylococcus Aureus Resulted Last 24 Hours Test 01/17/18 05:52 White Blood Count 11.64 K/uL Red Blood Count 3.76 M/uL Hemoglobin 10.6 g/dL Hematocrit 32.7 % Mean Corpuscular Volume 87.0 fL Mean Corpuscular Hemoglobin 28.2 pg Mean Corpuscular Hemoglobin Concent 32.4 g/dl RDW Standard Deviation 47.8 fL RDW Coefficient of Variation 14.9 % Platelet Count 154 K/uL Mean Platelet Volume 10.1 fL Sodium Level 136 mmol/L Potassium Level 3.5 mmol/L Chloride Level 102 mmol/L Carbon Dioxide Level 28 mmol/L Anion Gap 6.0 mmol/L Blood Urea Nitrogen 20 mg/dl Creatinine 1.22 mg/dl Est Creatinine Clear Calc Drug Dose 79.6 ml/min Estimated GFR () 79.1 Estimated GFR (Non- 68.2 BUN/Creatinine Ratio 16.3 Random Glucose 95 mg/dl Calcium Level 8.1 mg/dl Magnesium Level 2.0 mg/dl Total Bilirubin 1.5 mg/dl Aspartate Amino Transf (AST/SGOT) 11 U/L Alanine Aminotransferase (ALT/SGPT) 17 U/L Alkaline Phosphatase 82 U/L Total Protein 5.9 gm/dl Albumin 2.3 gm/dl Globulin 3.6 gm/dl Albumin/Globulin Ratio 0.6 Procalcitonin 1.49 ng/ml Date/Time Source Procedure Growth Status 01/17/18 15:34 Blood Blood Culture Pending Received 01/17/18 14:45 Blood Blood Culture Pending Received 01/17/18 13:58 Stool Shiga Toxin Test Pending Received 01/17/18 13:58 Stool Stool Culture Pending Received 01/17/18 13:58 Stool C.difficile Toxin B Gene (PCR) - Final Positive for C. difficile toxin B gene Complete 01/17/18 13:58 Stool WBC Smear Pending Received Assessment & Plan 52-year-old male with history of IV drug use presents to the ER with a history of abdominal pain nausea vomiting and diarrhea for 1 week. He also reports fevers and body aches. Blood cultures revealed staph aureus in the blood and infectious disease was consulted he was started on vancomycin and Zosyn empiric weight and remains on this until blood cultures result. He does feel clinically improved since yesterday. He denies any abdominal pain at this time and reports no nausea or vomiting. He is tolerating p.o. He does have excessive diarrhea and was found to have C. difficile. He reports an MRI in the last month but otherwise no needle sticks. He denies any IV drug use in the last year. He denies any anal intercourse. He reports not undergoing treatment for HCV and this was because viral load was undetectable to different instances tested 6 months apart. He otherwise denies any wounds or dental work. He denies any dysuria or UTI symptoms. 1. Bacteremia secondary to staph aureus-continue empiric broad-spectrum antibiotics. TTE ordered for tomorrow. Repeat blood cultures after 48 hours on antibiotics. ID was consulted and is following. Patient is clinically improved 2. Nausea vomiting-resolved 3. Diarrhea secondary to C. difficile infection-uncertain etiology. Started vancomycin 4 times daily. On contact precautions. 4. Community-acquired pneumonia-continue broad-spectrum empiric antibiotics pending cultures and clinical improvement. 5. Bacteriuria-likely secondary to bacteremia patient. Patient is having no symptoms to suggest cystitis. Antibiotics as above 6. AK I secondary to prerenal azotemia secondary to vomiting and diarrhea in combination. HCTZ was held. IV fluids. Renal function has improved. Repeat PRP in a.m. 7. Hypokalemia/hypomagnesemia-likely secondary to GI losses-replaced 8. Hepatitis C virus-patient reports spontaneous clearance. Will order HCV viral load per ID recommendations. 9. History of IV drug use-on Suboxone, dosage was confirmed with outpatient clinic today. DVT prophylaxis-Lovenox Full code Disposition-likely here through the weekend until repeat blood cultures are cleared and patient has definitive plan. Kisha Norman DO [facility] hospitalist Consultants: [place] Current Inpatient Medications: Current Inpatient Medications Medications (Trade) Dose Ordered Sig/Adelita Route Start Time Stop Time Status Last Admin Dose Admin Ioversol (Optiray 320) 125 ml UD PRN IV 01/16/18 14:00 01/20/18 13:59 Heparin Sodium (Porcine) (Heparin Sq 5000 Unit/0.5ml) 5,000 unit Q8 SQ 01/16/18 22:00 02/15/18 21:59 01/17/18 14:22 5,000 UNIT Acetaminophen (Tylenol Tab) 650 mg Q4H PRN PO 01/16/18 14:30 02/15/18 14:29 Ondansetron HCl (Zofran Inj) 4 mg Q6H PRN IV 01/16/18 14:30 02/15/18 14:29 Bupropion HCl (Wellbutrin-Sr Tab) 150 mg BID PO 01/16/18 21:00 02/15/18 20:59 01/17/18 08:59 150 MG Multivitamins (Multivitamin Tab) 1 tab DAILY PO 01/17/18 09:00 02/16/18 08:59 01/17/18 08:59 1 TAB Pantoprazole Sodium (Protonix Tab) 40 mg BID PO 01/16/18 21:00 02/15/18 20:59 01/17/18 08:59 40 MG Potassium Chloride/Sodium Chloride 1,000 ml @ 125 mls/hr Q8H IV 01/16/18 16:45 02/15/18 16:44 01/17/18 10:35 125 MLS/HR Miscellaneous Information (Consult) 1 ea UD PRN N/A 01/16/18 16:24 02/15/18 16:23 Piperacillin Sod/ Tazobactam Sod 3.375 gm/Sodium Chloride 115 ml @ 28.75 mls/ hr Q8H IV 01/16/18 20:00 01/23/18 19:59 01/17/18 12:25 28.75 MLS/HR Miscellaneous Information (Consult) 1 ea UD PRN N/A 01/16/18 18:15 02/15/18 18:14 Vancomycin HCl 1250 mg/Sodium Chloride 275 ml @ 125 mls/hr Q10H IV 01/17/18 00:00 01/24/18 00:00 01/17/18 10:34 125 MLS/HR Buprenorphine/ Naloxone (Suboxone 8/2MG Tab) 1 tab BID@0900,1500 PO 01/17/18 15:00 02/16/18 14:59 01/17/18 16:13 1 TAB Vancomycin HCl (Vancomycin Oral Soln) 125 mg Q6H PO 01/17/18 17:00 01/31/18 16:59 01/17/18 17:33 125 MG Raspberry (Raspberry Syrup 5ml Cup) 5 ml Q6H PO 01/17/18 17:00 01/31/18 16:59 01/17/18 17:33 5 ML
[2018-01-17] MEDS ORDERED: VANCOMYCIN TROUGH ONE (19:30)
[2018-01-18] VITALS (9 sets, daily range): BP systolic 107–122; BP diastolic 69–86; PULSE 90–101; TEMP 36.6–37.3; O2SAT 92–97
[2018-01-18] MEDS: PIPERACILL/TAZOBAC IV 3.375 GM in NSS 100ML IV SCH ×3 (04:16→20:00)
[2018-01-18] MEDS ORDERED: VANCOMYCIN TROUGH ONE (05:30)
[2018-01-18 05:52] LABS: HEMATOCRIT 30.3 % (42-52); HEMOGLOBIN 10.1 g/dL (14.0-18.0); MEAN CELL VOLUME 85.6 fL (80-100); MEAN CORPUSCULAR HEMOGLOBIN 28.5 pg (25-34); MEAN CORPUSCULAR HGB CONC 33.3 g/dl (32-36); MEAN PLATELET VOLUME 9.6 fL (7.4-10.4); PLATELET COUNT 162 K/uL (130-400); RED CELL DISTRIBUTION WIDTH CV 14.6 % (11.5-14.5)
[2018-01-18] MEDS: VANCOMYCIN HCL 125 MG/2.5ML SOLN PO SCH ×4 (05:54→23:57)
[2018-01-18] MEDS: VANCOMYCIN IV 1,250 MG in SODIUM CHLORIDE 0.9% 250ML 250 ML IV SCH ×2 (05:55→17:16)
[2018-01-18] MEDS: RASPBERRY SYRUP 5 ML UDP PO SCH ×4 (05:55→23:57)
[2018-01-18 06:32] LABS: CALCIUM 8.3 mg/dl (8.5-10.1); CREATININE 1.09 mg/dl (0.60-1.40); PHOSPHORUS 2.9 mg/dl (2.5-4.9); POTASSIUM 3.2 mmol/L (3.5-5.1)
--- NOTE | 2018-01-18 09:25 | ECHOCARDIOGRAM REPORT ---
*NOTICE TO RECEIVING REPUBLICAN AGENCY This information is strictly Confidential and protected under [place] law. [place] law prohibits you from making any further disclosure of this information unless further disclosure is expressly permitted by the written consent of the person to whom it pertains or is authorized by law. A general authorization for the release of medical or other information is not sufficient for this purpose. Hospital accepts no responsibility if the information is made available to any other person, INCLUDING THE PATIENT. Interpretation Summary * Name: MELISSA ADHIKARI Study Date: 01/18/2018 07:15 AM BP: 108/69 mmHg * Patient Location: C.2T\S\S236\S\1 HR: 94 * : 1965 (M/d/yyyy) Gender: Male Height: 69 in * Age: 52 yrs Ethnicity: [place] Weight: 200 lb * Ordering Physician: Kisha Norman * Referring Physician: Self, Referred * Performed By: Mya Patel RDCS * * Reason For Study: Endocarditis * BSA: 2.1 m2 * There is no evidence of a mass or vegetation. This does not rule out endocarditis. * -- Conclusions -- * There is no evidence of a mass or vegetation. This does not rule out endocarditis. Procedure Details * A complete two-dimensional transthoracic echocardiogram was performed (2D, M-mode, Doppler and color flow Doppler). Left Ventricle * The left ventricle is normal in size. * There is normal left ventricular wall thickness. * Ejection Fraction = 65-70%. * Left ventricular systolic function is normal. * The left ventricular wall motion is normal. Right Ventricle * The right ventricle is normal size. * The right ventricular systolic function is normal. Atria * The left atrial size is normal. * Right atrial size is normal. * The interatrial septum is intact with no evidence for an atrial septal defect. Mitral Valve * The mitral valve anatomy is normal. * There is no vegetation seen on the mitral valve. * There is trace mitral regurgitation. Tricuspid Valve * The tricuspid valve anatomy is normal. * There is no tricuspid valve vegetation. * There is trace tricuspid regurgitation. Aortic Valve * The aortic valve is tricuspid. The leaflet thickness if normal. There is no aortic stenosis, and no significant insufficiency. * There is no aortic valvular vegetation. * Aortic stenosis is absent. * There is no significant aortic regurgitation. Pulmonic Valve * The pulmonic valve is not well seen, but is grossly normal. Great Vessels * The aortic root and proximal ascending aorta are normal sized. Pericardium/Pleural * There is no pericardial effusion. Pulmonic Valve * There is no vegetation on the pulmonic valve. MMode 2D Measurements and Calculations IVSd 1.2 cm IVSs 1.7 cm LVIDd 4.1 cm LVIDs 2.4 cm LVPWd 1.6 cm LVPWs 1.7 cm IVS/LVPW 0.73 FS 42.0 % EDV(Teich) 75.8 ml ESV(Teich) 20.1 ml EF(Teich) 73.5 % EDV(cubed) 70.8 ml ESV(cubed) 13.8 ml EF(cubed) 80.5 % % IVS thick 40.8 % % LVPW thick 4.3 % LV mass(C)d 220.4 grams LV mass(C)dI 106.7 grams/m\S\2 LV mass(C)s 148.1 grams LV mass(C)sI 71.7 grams/m\S\2 SV(Teich) 55.7 ml SI(Teich) 27.0 ml/m\S\2 SV(cubed) 57.0 ml SI(cubed) 27.6 ml/m\S\2 Ao root diam 4.0 cm Ao root area 12.7 cm\S\2 ACS 2.3 cm LA dimension 4.0 cm LA/Ao 10 LVAd ap4 26.9 cm\S\2 LVLd ap4 8.1 cm EDV(MOD-sp4) 74.8 ml EDV(sp4-el) 75.9 ml LVAs ap4 12.2 cm\S\2 LVLs ap4 6.2 cm ESV(MOD-sp4) 20.3 ml ESV(sp4-el) 20.4 ml EF(MOD-sp4) 72.8 % EF(sp4-el) 73.2 % LVAd ap2 28.6 cm\S\2 LVLd ap2 9.0 cm EDV(MOD-sp2) 77.9 ml EDV(sp2-el) 77.1 ml LVAs ap2 14.9 cm\S\2 LVLs ap2 7.2 cm ESV(MOD-sp2) 27.1 ml ESV(sp2-el) 26.0 ml EF(MOD-sp2) 65.2 % EF(sp2-el) 66.2 % LVLd %diff 10.5 % EDV(MOD-bp) 80.1 ml LVLs %diff 15.0 % ESV(MOD-bp) 25.4 ml EF(MOD-bp) 68.4 % SV(MOD-sp4) 54.4 ml SI(MOD-sp4) 26.4 ml/m\S\2 SV(MOD-sp2) 50.8 ml SI(MOD-sp2) 24.6 ml/m\S\2 SV(MOD-bp) 54.8 ml SI(MOD-bp) 26.5 ml/m\S\2 SV(sp4-el) 55.5 ml SI(sp4-el) 26.9 ml/m\S\2 SV(sp2-el) 51.0 ml SI(sp2-el) 24.7 ml/m\S\2 Doppler Measurements and Calculations MV E max zakiya 49.4 cm/sec MV A max zakiya 67.6 cm/sec MV E/A 0.73 MV dec time 0.23 sec Ao V2 max 110.1 cm/sec Ao max PG 4.8 mmHg Ao max PG (full) 1.2 mmHg LV V1 max PG 3.6 mmHg LV V1 max 95.1 cm/sec PA V2 max 86.4 cm/sec PA max PG 3.0 mmHg TR max zakiya 230.7 cm/sec
[2018-01-18] MEDS: PANTOprazole SOD 40 MG TAB PO SCH ×2 (10:00→20:00)
[2018-01-18] MEDS: MULTIVITAMIN TAB PO SCH (10:00)
[2018-01-18] MEDS: POTASSIUM CHLORIDE 20 MEQ TABCR PO SCH ×2 (10:00→17:16)
[2018-01-18] MEDS: ENOXAPARIN 40 MG/0.4 ML SYR SQ SCH (10:01)
[2018-01-18] MEDS: BuPROPion SR 150 MG TABCR PO SCH ×2 (10:01→20:00)
[2018-01-18] MEDS: MAGNESIUM SULFATE 1GM / D5W 1 GM in PREMIXED IN D5W 100 ML IV SCH ×2 (10:16→11:24)
[2018-01-18] MEDS: BUPRENORPHINE/NALOXONE 8/2 MG TAB PO SCH ×2 (10:17→17:15)
--- NOTE | 2018-01-18 18:09 | Progress Note ---
Medicine Progress Note Date & Time of Visit: Jan 18, 2018 at 11:00. Subjective 52-year-old male with history of IV drug use presents to the ER with a history of abdominal pain nausea vomiting and diarrhea for 1 week. He also reported fevers and body aches which are resolved. Blood cultures revealed staph aureus in the blood and infectious disease was consulted he was started on vancomycin and Zosyn empirically. He continues to clinically improve. He is tolerating p.o. he denies diarrhea or abdominal pain. Objective Last 8 Hrs Date Time Temp Pulse Resp B/P (MAP) Pulse Ox O2 Delivery O2 Flow Rate FiO2 01/18/18 08:00 Room Air 01/18/18 07:30 37.2 90 18 107/71 (83) 97 Room Air 01/18/18 04:13 37.3 94 17 108/69 (82) 94 Room Air 01/18/18 04:00 96 Room Air Physical Exam: GEN: WNWD, in no acute distress, alert and appropriate HEENT: NC/AT, PERRL, normal sclerae CARDIO: tachy rate, S1/2 heard without m/g/r LUNGS: CTA bilaterally, no crackles, rales or wheezes, good diaphragmatic excursion ABD: soft, non-tender, non-distended, no rebound or guarding, +BS EXTREMITY: RP and DP palpable 2+ bilat, no LE swelling or edema, extremities are warm and well-perfused NEURO: CN 2-12 grossly intact, no gross focal deficits. MUSC: 5/5 strength throughout, no gross focal deficits SKIN: warm and dry Laboratory Results: 01/18/18 05:33 01/18/18 05:33 Test 01/16/18 12:47 01/16/18 12:55 01/16/18 13:05 01/16/18 13:10 Creatine Kinase MB Ratio (0-3.0) Immature Granulocyte % (Auto) 0.6 % White Blood Count 23.34 K/uL (4.8-10.8) Red Blood Count 4.53 M/uL (4.7-6.1) Hemoglobin 13.0 g/dL (14.0-18.0) Hematocrit 38.4 % (42-52) Mean Corpuscular Volume 84.8 fL (80-100) Mean Corpuscular Hemoglobin 28.7 pg (25-34) Mean Corpuscular Hemoglobin Concent 33.9 g/dl (32-36) Platelet Count 221 K/uL (130-400) Mean Platelet Volume 10.3 fL (7.4-10.4) Neutrophils (%) (Auto) 88.9 % Lymphocytes (%) (Auto) 5.2 % Monocytes (%) (Auto) 5.1 % Eosinophils (%) (Auto) 0.0 % Basophils (%) (Auto) 0.2 % Neutrophils # (Auto) 20.77 K/uL (1.4-6.5) Lymphocytes # (Auto) 1.21 K/uL (1.2-3.4) Monocytes # (Auto) 1.18 K/uL (0.11-0.59) Eosinophils # (Auto) 0.00 K/uL (0-0.5) Basophils # (Auto) 0.04 K/uL (0-0.2) Immature Granulocyte # (Auto) 0.14 K/uL (0.00-0.02) Nucleated RBC Absolute Count (auto) 0.02 K/uL (0-0) Nucleated Red Blood Cells % 0.1 % Prothrombin Time 13.8 SECONDS (9.0-12.0) Prothromb Time International Ratio 1.3 (0.9-1.1) Activated Partial Thromboplast Time 28.5 SECONDS (21.0-31.0) Partial Thromboplastin Ratio 1.1 Direct Bilirubin 0.4 mg/dl (0-0.2) Creatine Kinase MB < 0.5 ng/ml (0.5-3.6) Lipase 175 U/L (73-393) Bedside Troponin I < 0.030 ng/ml (0-0.045) Urine Color DK YELLOW Urine Appearance CLEAR (CLEAR) Urine pH 6.5 (4.5-7.5) Urine Specific [place] 1.025 (1.000-1.030) Urine Protein 2+ (NEG) Urine Glucose (UA) NEG (NEG) Urine Ketones 1+ (NEG) Urine Occult Blood NEG (NEG) Urine Nitrite POS (NEG) Urine Bilirubin NEG (NEG) Urine Urobilinogen NEG (NEG) Urine Leukocyte Esterase SMALL (NEG) Urine WBC (Auto) 10-30 /hpf (0-5) Urine RBC (Auto) 0-4 /hpf (0-4) Urine Hyaline Casts (Auto) 1-5 /lpf (0-5) Urine Epithelial Cells (Auto) 0-5 /lpf (0-5) Urine Bacteria (Auto) 2+ (NEG) Urine Crystals See comments (NONE PRSENT) Urine Yeast (Auto) (NONE PRSENT) Test 01/16/18 13:28 01/16/18 14:08 01/16/18 14:25 01/17/18 05:52 Bedside Lactic Acid Venous 1.20 mmol/L (0.90-1.70) Lactic Acid Level 1.3 mmol/L (0.4-2.0) Ammonia 39.2 umol/L (11-32) Total Bilirubin 1.5 mg/dl (0.2-1) Aspartate Amino Transf (AST/SGOT) 11 U/L (15-37) Alanine Aminotransferase (ALT/SGPT) 17 U/L (12-78) Alkaline Phosphatase 82 U/L (45-117) Total Protein 5.9 gm/dl (6.4-8.2) Albumin 2.3 gm/dl (3.4-5.0) Globulin 3.6 gm/dl (2.5-4.0) Albumin/Globulin Ratio 0.6 (0.9-2) Procalcitonin 1.49 ng/ml (0-0.5) Test 01/17/18 19:47 01/17/18 20:16 01/18/18 05:33 Vancomycin Level Trough 17.0 mcg/ml (SEE COMMENT) Urine Opiates Screen NEG (NEG) Urine Methadone, Qualitative NEG (NEG) Urine Barbiturates NEG (NEG) Urine Phencyclidine (PCP) Level NEG (NEG) Ur Amphetamine/Methamphetamine NEG (NEG) MDMA (Ecstasy) Screen POS (NEG) Urine Benzodiazepines Screen NEG (NEG) Urine Cocaine Metabolite NEG (NEG) Urine Marijuana (THC) NEG (NEG) Red Blood Count 3.54 M/uL (4.7-6.1) Mean Corpuscular Volume 85.6 fL (80-100) Mean Corpuscular Hemoglobin 28.5 pg (25-34) Mean Corpuscular Hemoglobin Concent 33.3 g/dl (32-36) RDW Standard Deviation 46.0 fL (36.4-46.3) RDW Coefficient of Variation 14.6 % (11.5-14.5) Mean Platelet Volume 9.6 fL (7.4-10.4) Anion Gap 4.0 mmol/L (3-11) Est Creatinine Clear Calc Drug Dose 89.5 ml/min Estimated GFR () 90.6 Estimated GFR (Non- 78.2 BUN/Creatinine Ratio 11.7 (10-20) Calcium Level 8.3 mg/dl (8.5-10.1) Phosphorus Level 2.9 mg/dl (2.5-4.9) Magnesium Level 1.7 mg/dl (1.8-2.4) HIV (1&2) Ab and P24 Ag, 4th Gener NEG (NEG) Date/Time Source Procedure Growth Status 01/17/18 15:34 Blood Blood Culture - Preliminary Gram Positive Cocci Resulted 01/16/18 16:00 Nasal MRSA DNA Surveillance Screen - Final Specimen Positive for MRSA by DNA Probe Complete 01/17/18 13:58 Stool Shiga Toxin Test - Preliminary No E. Coli shiga toxin 1 or shiga tox... Resulted 01/17/18 13:58 Stool Stool Culture - Preliminary NO SALMONELLA ISOLATED TO DATE,... Resulted 01/16/18 13:10 Urine , Clean Catch Urine Culture - Final Staph. Aureus Mrsa Complete Last 24 Hours Test 01/17/18 19:47 01/17/18 20:16 01/18/18 05:33 Vancomycin Level Trough 17.0 mcg/ml Urine Opiates Screen NEG Urine Methadone, Qualitative NEG Urine Barbiturates NEG Urine Phencyclidine (PCP) Level NEG Ur Amphetamine/Methamphetamine NEG MDMA (Ecstasy) Screen POS Urine Benzodiazepines Screen NEG Urine Cocaine Metabolite NEG Urine Marijuana (THC) NEG White Blood Count 8.60 K/uL Red Blood Count 3.54 M/uL Hemoglobin 10.1 g/dL Hematocrit 30.3 % Mean Corpuscular Volume 85.6 fL Mean Corpuscular Hemoglobin 28.5 pg Mean Corpuscular Hemoglobin Concent 33.3 g/dl RDW Standard Deviation 46.0 fL RDW Coefficient of Variation 14.6 % Platelet Count 162 K/uL Mean Platelet Volume 9.6 fL Sodium Level 135 mmol/L Potassium Level 3.2 mmol/L Chloride Level 101 mmol/L Carbon Dioxide Level 30 mmol/L Anion Gap 4.0 mmol/L Blood Urea Nitrogen 13 mg/dl Creatinine 1.09 mg/dl Est Creatinine Clear Calc Drug Dose 89.5 ml/min Estimated GFR () 90.6 Estimated GFR (Non- 78.2 BUN/Creatinine Ratio 11.7 Random Glucose 134 mg/dl Calcium Level 8.3 mg/dl Phosphorus Level 2.9 mg/dl Magnesium Level 1.7 mg/dl HIV (1&2) Ab and P24 Ag, 4th Gener NEG Date/Time Source Procedure Growth Status 01/17/18 15:34 Blood Blood Culture - Preliminary Gram Positive Cocci Resulted 01/17/18 14:45 Blood Blood Culture - Preliminary Gram Positive Cocci Resulted 01/17/18 13:58 Stool Shiga Toxin Test Pending Received 01/17/18 13:58 Stool Stool Culture Pending Received 01/17/18 13:58 Stool C.difficile Toxin B Gene (PCR) - Final Positive for C. difficile toxin B gene Complete 01/17/18 13:58 Stool WBC Smear - Final Complete Assessment & Plan 52-year-old male with history of IV drug use presents to the ER with a history of abdominal pain nausea vomiting and diarrhea for 1 week. He also reported fevers and body aches which are resolved. Blood cultures revealed staph aureus in the blood and infectious disease was consulted he was started on vancomycin and Zosyn empirically. He continues to clinically improve. He is tolerating p.o. he denies diarrhea or abdominal pain. 1. Bacteremia secondary to staph aureus-continue empiric broad-spectrum antibiotics. TTE did not reveal vegetations and normal EF reported. Repeat blood cultures after 48 hours on antibiotics. ID was consulted and is following. Patient is clinically improved 2. Diarrhea secondary to C. difficile infection-uncertain etiology. Started vancomycin 4 times daily. On contact precautions. 3. Community-acquired pneumonia-continue broad-spectrum empiric antibiotics. Patient is clinically improved. 4. Bacteriuria-likely secondary to bacteremia patient. Patient is having no symptoms to suggest cystitis. MRSA is present in culture, likely secondary to bacteremia. 5. AK I secondary to prerenal azotemia secondary to vomiting and diarrhea in combination. HCTZ was held. AK eyes resolved. 6. Hypokalemia/hypomagnesemia-likely secondary to GI losses-replaced 7. Hepatitis C virus-patient reports spontaneous clearance. Viral load is pending. 8. History of IV drug use-on Suboxone, dosage was confirmed with outpatient clinic today. HIV is pending. DVT prophylaxis-Lovenox Full code Disposition-likely here through the weekend until repeat blood cultures are cleared and patient has definitive plan. Kisha Norman DO [facility] hospitalist Consultants: [place] Current Inpatient Medications: Current Inpatient Medications Medications (Trade) Dose Ordered Sig/Adelita Route Start Time Stop Time Status Last Admin Dose Admin Ioversol (Optiray 320) 125 ml UD PRN IV 01/16/18 14:00 01/20/18 13:59 Acetaminophen (Tylenol Tab) 650 mg Q4H PRN PO 01/16/18 14:30 02/15/18 14:29 Ondansetron HCl (Zofran Inj) 4 mg Q6H PRN IV 01/16/18 14:30 02/15/18 14:29 Bupropion HCl (Wellbutrin-Sr Tab) 150 mg BID PO 01/16/18 21:00 02/15/18 20:59 01/18/18 10:01 150 MG Multivitamins (Multivitamin Tab) 1 tab DAILY PO 01/17/18 09:00 02/16/18 08:59 01/18/18 10:00 1 TAB Pantoprazole Sodium (Protonix Tab) 40 mg BID PO 01/16/18 21:00 02/15/18 20:59 01/18/18 10:00 40 MG Miscellaneous Information (Consult) 1 ea UD PRN N/A 01/16/18 16:24 02/15/18 16:23 Piperacillin Sod/ Tazobactam Sod 3.375 gm/Sodium Chloride 115 ml @ 28.75 mls/ hr Q8H IV 01/16/18 20:00 01/23/18 19:59 01/18/18 04:16 28.75 MLS/HR Miscellaneous Information (Consult) 1 ea UD PRN N/A 01/16/18 18:15 02/15/18 18:14 Vancomycin HCl 1250 mg/Sodium Chloride 275 ml @ 125 mls/hr Q10H IV 01/17/18 00:00 01/24/18 00:00 01/18/18 05:55 125 MLS/HR Buprenorphine/ Naloxone (Suboxone 8/2MG Tab) 1 tab BID@0900,1500 PO 01/17/18 15:00 02/16/18 14:59 01/18/18 10:17 1 TAB Vancomycin HCl (Vancomycin Oral Soln) 125 mg Q6H PO 01/17/18 17:00 01/31/18 16:59 01/18/18 05:54 125 MG Raspberry (Raspberry Syrup 5ml Cup) 5 ml Q6H PO 01/17/18 17:00 01/31/18 16:59 01/18/18 05:55 5 ML Enoxaparin Sodium (Lovenox Inj) 40 mg QAM SQ 01/18/18 09:00 02/17/18 08:59 01/18/18 10:01 40 MG Potassium Chloride (Klor-Con Tab) 40 meq Q6H PO 01/18/18 09:00 01/18/18 15:01 01/18/18 10:00 40 MEQ Magnesium Sulfate 1 gm/Prmx 100 ml @ 100 mls/hr Q1H IV 01/18/18 09:00 01/18/18 10:59 01/18/18 10:16 100 MLS/HR
[2018-01-19] MEDS: VANCOMYCIN IV 1,250 MG in SODIUM CHLORIDE 0.9% 250ML 250 ML IV SCH ×3 (01:46→22:13)
[2018-01-19] MEDS: PIPERACILL/TAZOBAC IV 3.375 GM in NSS 100ML IV SCH (04:41)
[2018-01-19] MEDS: RASPBERRY SYRUP 5 ML UDP PO SCH ×4 (04:48→22:13)
[2018-01-19] MEDS: VANCOMYCIN HCL 125 MG/2.5ML SOLN PO SCH ×4 (04:48→22:13)
[2018-01-19 07:25] VITALS: BP 117/77; PULSE 97; TEMP 36.7; O2SAT 92
[2018-01-19] MEDS: BUPRENORPHINE/NALOXONE 8/2 MG TAB PO SCH ×2 (08:15→15:52)
[2018-01-19] MEDS: BuPROPion SR 150 MG TABCR PO SCH ×2 (08:15→19:45)
[2018-01-19] MEDS: MULTIVITAMIN TAB PO SCH (08:15)
[2018-01-19] MEDS: PANTOprazole SOD 40 MG TAB PO SCH ×2 (08:15→19:45)
[2018-01-19] MEDS: ENOXAPARIN 40 MG/0.4 ML SYR SQ SCH (08:15)
[2018-01-19 08:25] LABS: CALCIUM 8.3 mg/dl (8.5-10.1); CREATININE 1.07 mg/dl (0.60-1.40); POTASSIUM 3.6 mmol/L (3.5-5.1)
--- NOTE | 2018-01-19 09:02 | Progress Note ---
Subjective Date of Service: Jan 19, 2018. Subjective afebrile tolerating abx c diff +, started on po vanco. remains on IV vanco and zosyn, repeat culture + gpc 2/, todays cultures pending. Echo negative for vegetation. wbc improved. Problem List Medical Problems: (1) Pneumonia Status: Acute Objective Vital Signs Date Time Temp Pulse Resp B/P (MAP) Pulse Ox O2 Delivery O2 Flow Rate FiO2 01/19/18 07:25 36.7 97 17 117/77 (90) 92 Room Air 01/19/18 00:30 Room Air 01/18/18 23:37 36.8 96 18 116/80 (92) 92 Room Air 01/18/18 15:50 Room Air 01/18/18 14:15 36.6 101 18 121/83 (96) 95 Room Air 01/18/18 13:49 37.0 98 20 92 01/18/18 12:10 37.0 98 20 122/86 (98) 92 Room Air 01/18/18 12:00 Room Air Laboratory Results Item Value Date Time Blood Culture - Final Complete 01/16/18 1408 Blood Staph. Aureus Mrsa Blood Culture - Final Complete 01/16/18 1425 Blood Staph. Aureus Mrsa Blood Culture - Preliminary Resulted 01/17/18 1445 Blood Gram Positive Cocci Blood Culture - Preliminary Resulted 01/17/18 1534 Blood Gram Positive Cocci Shiga Toxin Test - Preliminary Resulted 01/17/18 1358 Stool No E. Coli shiga toxin 1 or shiga tox... C.difficile Toxin B Gene (PCR) - Final Complete 01/17/18 1358 Stool Positive for C. difficile toxin B gene Last 24 Hours Test 01/19/18 07:38 Sodium Level 136 mmol/L Potassium Level 3.6 mmol/L Chloride Level 102 mmol/L Carbon Dioxide Level 26 mmol/L Anion Gap 9.0 mmol/L Blood Urea Nitrogen 7 mg/dl Creatinine 1.07 mg/dl Est Creatinine Clear Calc Drug Dose 92.3 ml/min Estimated GFR () 92.7 Estimated GFR (Non- 80.0 BUN/Creatinine Ratio 6.6 Random Glucose 102 mg/dl Calcium Level 8.3 mg/dl Magnesium Level 1.8 mg/dl Assessment and Plan (1) MRSA (methicillin resistant Staphylococcus aureus) septicemia Assessment & Plan: repeat cultures remain +, today's culture pending, continue vanco for now. stop zosyn. will need imaging of hip as has hardware. (2) C. difficile colitis Assessment & Plan: continue po vanco
[2018-01-19] MEDS: MAGNESIUM OXIDE 400 MG TAB PO SCH ×2 (09:27→19:45)
--- NOTE | 2018-01-19 10:57 | Progress Note ---
Medicine Progress Note Date & Time of Visit: Jan 19, 2018 at 08:37. Subjective 52-year-old male with history of IV drug use presents to the ER with a history of abdominal pain nausea vomiting and diarrhea for 1 week. Overnight he continues to remain stable without fevers or chills. He denies abdominal pain or distention. He remote reports a massive blowout of diarrhea overnight which has resolved. He is tolerating p.o. He continues to deny any cough or productive sputum. Breathing is stable Objective Last 8 Hrs Date Time Temp Pulse Resp B/P (MAP) Pulse Ox O2 Delivery O2 Flow Rate FiO2 01/19/18 07:25 36.7 97 17 117/77 (90) 92 Room Air Physical Exam: GEN: WNWD, in no acute distress, alert and appropriate HEENT: NC/AT, PERRL, normal sclerae CARDIO: tachy rate, S1/2 heard without m/g/r LUNGS: CTA bilaterally, no crackles, rales or wheezes, good diaphragmatic excursion ABD: soft, non-tender, non-distended, no rebound or guarding, +BS EXTREMITY: RP and DP palpable 2+ bilat, no LE swelling or edema, extremities are warm and well-perfused NEURO: CN 2-12 grossly intact, no gross focal deficits. MUSC: 5/5 strength throughout, no gross focal deficits SKIN: warm and dry Laboratory Results: 01/18/18 05:33 01/19/18 07:38 Test 01/16/18 12:47 01/16/18 12:55 01/16/18 13:05 01/16/18 13:10 Creatine Kinase MB Ratio (0-3.0) Immature Granulocyte % (Auto) 0.6 % White Blood Count 23.34 K/uL (4.8-10.8) Red Blood Count 4.53 M/uL (4.7-6.1) Hemoglobin 13.0 g/dL (14.0-18.0) Hematocrit 38.4 % (42-52) Mean Corpuscular Volume 84.8 fL (80-100) Mean Corpuscular Hemoglobin 28.7 pg (25-34) Mean Corpuscular Hemoglobin Concent 33.9 g/dl (32-36) Platelet Count 221 K/uL (130-400) Mean Platelet Volume 10.3 fL (7.4-10.4) Neutrophils (%) (Auto) 88.9 % Lymphocytes (%) (Auto) 5.2 % Monocytes (%) (Auto) 5.1 % Eosinophils (%) (Auto) 0.0 % Basophils (%) (Auto) 0.2 % Neutrophils # (Auto) 20.77 K/uL (1.4-6.5) Lymphocytes # (Auto) 1.21 K/uL (1.2-3.4) Monocytes # (Auto) 1.18 K/uL (0.11-0.59) Eosinophils # (Auto) 0.00 K/uL (0-0.5) Basophils # (Auto) 0.04 K/uL (0-0.2) Immature Granulocyte # (Auto) 0.14 K/uL (0.00-0.02) Nucleated RBC Absolute Count (auto) 0.02 K/uL (0-0) Nucleated Red Blood Cells % 0.1 % Prothrombin Time 13.8 SECONDS (9.0-12.0) Prothromb Time International Ratio 1.3 (0.9-1.1) Activated Partial Thromboplast Time 28.5 SECONDS (21.0-31.0) Partial Thromboplastin Ratio 1.1 Direct Bilirubin 0.4 mg/dl (0-0.2) Creatine Kinase MB < 0.5 ng/ml (0.5-3.6) Lipase 175 U/L (73-393) Bedside Troponin I < 0.030 ng/ml (0-0.045) Urine Color DK YELLOW Urine Appearance CLEAR (CLEAR) Urine pH 6.5 (4.5-7.5) Urine Specific [place] 1.025 (1.000-1.030) Urine Protein 2+ (NEG) Urine Glucose (UA) NEG (NEG) Urine Ketones 1+ (NEG) Urine Occult Blood NEG (NEG) Urine Nitrite POS (NEG) Urine Bilirubin NEG (NEG) Urine Urobilinogen NEG (NEG) Urine Leukocyte Esterase SMALL (NEG) Urine WBC (Auto) 10-30 /hpf (0-5) Urine RBC (Auto) 0-4 /hpf (0-4) Urine Hyaline Casts (Auto) 1-5 /lpf (0-5) Urine Epithelial Cells (Auto) 0-5 /lpf (0-5) Urine Bacteria (Auto) 2+ (NEG) Urine Crystals See comments (NONE PRSENT) Urine Yeast (Auto) (NONE PRSENT) Test 01/16/18 13:28 01/16/18 14:08 01/16/18 14:25 01/17/18 05:52 Bedside Lactic Acid Venous 1.20 mmol/L (0.90-1.70) Lactic Acid Level 1.3 mmol/L (0.4-2.0) Ammonia 39.2 umol/L (11-32) Total Bilirubin 1.5 mg/dl (0.2-1) Aspartate Amino Transf (AST/SGOT) 11 U/L (15-37) Alanine Aminotransferase (ALT/SGPT) 17 U/L (12-78) Alkaline Phosphatase 82 U/L (45-117) Total Protein 5.9 gm/dl (6.4-8.2) Albumin 2.3 gm/dl (3.4-5.0) Globulin 3.6 gm/dl (2.5-4.0) Albumin/Globulin Ratio 0.6 (0.9-2) Procalcitonin 1.49 ng/ml (0-0.5) Test 01/17/18 19:47 01/17/18 20:16 01/18/18 05:33 01/19/18 07:38 Vancomycin Level Trough 17.0 mcg/ml (SEE COMMENT) Urine Opiates Screen NEG (NEG) Urine Methadone, Qualitative NEG (NEG) Urine Barbiturates NEG (NEG) Urine Phencyclidine (PCP) Level NEG (NEG) Ur Amphetamine/Methamphetamine NEG (NEG) MDMA (Ecstasy) Screen POS (NEG) Urine Benzodiazepines Screen NEG (NEG) Urine Cocaine Metabolite NEG (NEG) Urine Marijuana (THC) NEG (NEG) Red Blood Count 3.54 M/uL (4.7-6.1) Mean Corpuscular Volume 85.6 fL (80-100) Mean Corpuscular Hemoglobin 28.5 pg (25-34) Mean Corpuscular Hemoglobin Concent 33.3 g/dl (32-36) RDW Standard Deviation 46.0 fL (36.4-46.3) RDW Coefficient of Variation 14.6 % (11.5-14.5) Mean Platelet Volume 9.6 fL (7.4-10.4) Phosphorus Level 2.9 mg/dl (2.5-4.9) HIV (1&2) Ab and P24 Ag, 4th Gener NEG (NEG) Anion Gap 9.0 mmol/L (3-11) Est Creatinine Clear Calc Drug Dose 92.3 ml/min Estimated GFR () 92.7 Estimated GFR (Non- 80.0 BUN/Creatinine Ratio 6.6 (10-20) Calcium Level 8.3 mg/dl (8.5-10.1) Magnesium Level 1.8 mg/dl (1.8-2.4) Date/Time Source Procedure Growth Status 01/17/18 15:34 Blood Blood Culture - Preliminary Gram Positive Cocci Resulted 01/16/18 16:00 Nasal MRSA DNA Surveillance Screen - Final Specimen Positive for MRSA by DNA Probe Complete 01/17/18 13:58 Stool Shiga Toxin Test - Preliminary No E. Coli shiga toxin 1 or shiga tox... Resulted 01/17/18 13:58 Stool Stool Culture - Preliminary NO SALMONELLA ISOLATED TO DATE,... Resulted 01/16/18 13:10 Urine , Clean Catch Urine Culture - Final Staph. Aureus Mrsa Complete Last 24 Hours Test 01/19/18 07:38 Sodium Level 136 mmol/L Potassium Level 3.6 mmol/L Chloride Level 102 mmol/L Carbon Dioxide Level 26 mmol/L Anion Gap 9.0 mmol/L Blood Urea Nitrogen 7 mg/dl Creatinine 1.07 mg/dl Est Creatinine Clear Calc Drug Dose 92.3 ml/min Estimated GFR () 92.7 Estimated GFR (Non- 80.0 BUN/Creatinine Ratio 6.6 Random Glucose 102 mg/dl Calcium Level 8.3 mg/dl Magnesium Level 1.8 mg/dl Assessment & Plan 52-year-old male with history of IV drug use presents to the ER with a history of abdominal pain nausea vomiting and diarrhea for 1 week. Overnight he continues to remain stable without fevers or chills. He denies abdominal pain or distention. He remote reports a massive blowout of diarrhea overnight which has resolved. He is tolerating p.o. He continues to deny any cough or productive sputum. Breathing is stable 1. Bacteremia secondary to staph aureus-continue empiric vancomycin. ID saw patient this morning and stopped Zosyn. Repeat blood cultures are pending for today. Patient remains clinically stable. TTE did not reveal vegetations and normal EF reported. 2. Diarrhea secondary to C. difficile infection-uncertain etiology. Continue vancomycin p.o. 3. Community-acquired pneumonia-no specific infiltrate was seen on original imaging on admission and patient has continued to deny any cough fevers or chills related to a diagnosis of pneumonia. He was on empiric Zosyn initially but this has been stopped. At this time pneumonia does not appear to be a present diagnosis. Agree with stopping Zosyn. 4. Bacteriuria-likely secondary to bacteremia patient. Patient is having no symptoms to suggest cystitis. MRSA is present in culture, likely secondary to bacteremia. 5. Hypokalemia/hypomagnesemia-likely secondary to GI losses-hypokalemia resolved with replacement however hypomagnesemia on excuse as mag wasting can occur. Will place patient on supplemental magnesium at this time. 7. Hepatitis C virus-patient reports spontaneous clearance. Viral load is pending. 8. History of IV drug use-on Suboxone, dosage was confirmed with outpatient clinic today. HIV is negative. 9. Anemia-likely related to dilution from IV fluids given his admission. No active bleeding is present. Continue to monitor CBC periodically. No indication for transfusion at this time. DVT prophylaxis-Lovenox Full code Disposition-likely here for at least 2 more days until repeat blood cultures showed infection has cleared. Kisha Norman DO [facility] hospitalist Consultants: [place] Current Inpatient Medications: Current Inpatient Medications Medications (Trade) Dose Ordered Sig/Adelita Route Start Time Stop Time Status Last Admin Dose Admin Ioversol (Optiray 320) 125 ml UD PRN IV 01/16/18 14:00 01/20/18 13:59 Acetaminophen (Tylenol Tab) 650 mg Q4H PRN PO 01/16/18 14:30 02/15/18 14:29 Ondansetron HCl (Zofran Inj) 4 mg Q6H PRN IV 01/16/18 14:30 02/15/18 14:29 Bupropion HCl (Wellbutrin-Sr Tab) 150 mg BID PO 01/16/18 21:00 02/15/18 20:59 01/19/18 08:15 150 MG Multivitamins (Multivitamin Tab) 1 tab DAILY PO 01/17/18 09:00 02/16/18 08:59 01/19/18 08:15 1 TAB Pantoprazole Sodium (Protonix Tab) 40 mg BID PO 01/16/18 21:00 02/15/18 20:59 01/19/18 08:15 40 MG Miscellaneous Information (Consult) 1 ea UD PRN N/A 01/16/18 16:24 02/15/18 16:23 Piperacillin Sod/ Tazobactam Sod 3.375 gm/Sodium Chloride 115 ml @ 28.75 mls/ hr Q8H IV 01/16/18 20:00 01/23/18 19:59 01/19/18 04:41 28.75 MLS/HR Miscellaneous Information (Consult) 1 ea UD PRN N/A 01/16/18 18:15 02/15/18 18:14 Vancomycin HCl 1250 mg/Sodium Chloride 275 ml @ 125 mls/hr Q10H IV 01/17/18 00:00 01/24/18 00:00 01/19/18 01:46 125 MLS/HR Buprenorphine/ Naloxone (Suboxone 8/2MG Tab) 1 tab BID@0900,1500 PO 01/17/18 15:00 02/16/18 14:59 01/19/18 08:15 1 TAB Vancomycin HCl (Vancomycin Oral Soln) 125 mg Q6H PO 01/17/18 17:00 01/31/18 16:59 01/19/18 04:48 125 MG Raspberry (Raspberry Syrup 5ml Cup) 5 ml Q6H PO 01/17/18 17:00 01/31/18 16:59 01/19/18 04:48 5 ML Enoxaparin Sodium (Lovenox Inj) 40 mg QAM SQ 01/18/18 09:00 02/17/18 08:59 01/19/18 08:15 40 MG Magnesium Oxide (Mag-Ox Tab) 400 mg BID PO 01/19/18 08:45 02/18/18 08:44 UNV
[2018-01-19] MEDS ORDERED: VANCOMYCIN TROUGH ONE (11:30)
[2018-01-19 15:05] VITALS: BP 128/88; PULSE 96; TEMP 37.2; O2SAT 91
--- NOTE | 2018-01-19 15:50 | Pharmacy Progress Note ---
Pharmacy Antibiotic Prog Note Date of Service Jan 19, 2018. Subjective The patient is currently receiving vancomycin 1250 mg IV every 10 hours. The patient is currently on day # 4 of vancomycin IV therapy. Objective Height (Feet): 5 Height (Inches): 9.00 Weight (Kilograms): 93.600 Lab Results (24hrs): Test 01/19/18 07:38 01/19/18 12:02 Sodium Level 136 mmol/L (136-145) Potassium Level 3.6 mmol/L (3.5-5.1) Chloride Level 102 mmol/L (98-107) Carbon Dioxide Level 26 mmol/L (21-32) Anion Gap 9.0 mmol/L (3-11) Blood Urea Nitrogen 7 mg/dl (7-18) Creatinine 1.07 mg/dl (0.60-1.40) Est Creatinine Clear Calc Drug Dose 92.3 ml/min Estimated GFR () 92.7 Estimated GFR (Non- 80.0 BUN/Creatinine Ratio 6.6 (10-20) Random Glucose 102 mg/dl (70-99) Calcium Level 8.3 mg/dl (8.5-10.1) Magnesium Level 1.8 mg/dl (1.8-2.4) Vancomycin Level Trough 17.9 mcg/ml (SEE COMMENT) Recent Pertinent Medications Zosyn 3.375gm IV q 8h, dc'd. Assessment & Plan 52 year old male receiving vancomycin for treatment of gram positive bacteremia/ UTI/aspiration pneumonia with history of IVDU and MRSA pneumonia/bacteremia. Vancomycin trough today: 17.9mcg/ml. This drug level is therapeutic Continue vancomycin 1250 mg IV every 10 hours. Goal trough level estimate: between 15 - 20 mcg/mL for bacteremia This is the 2nd trough obtained that is in the desired trough goal range. Will reorder trough in a few days as renal fx is evaluated daily. Pharmacy will continue to follow and will adjust dose/frequency as necessary. Thank you
[2018-01-19 22:48] VITALS: BP 143/97; PULSE 106; TEMP 37.1; O2SAT 93
[2018-01-20] MEDS: VANCOMYCIN HCL 125 MG/2.5ML SOLN PO SCH ×4 (04:55→22:34)
[2018-01-20] MEDS: RASPBERRY SYRUP 5 ML UDP PO SCH ×4 (04:56→22:34)
[2018-01-20 05:57] LABS: HEMATOCRIT 30.8 % (42-52); HEMOGLOBIN 10.2 g/dL (14.0-18.0); MEAN CELL VOLUME 85.6 fL (80-100); MEAN CORPUSCULAR HEMOGLOBIN 28.3 pg (25-34); MEAN CORPUSCULAR HGB CONC 33.1 g/dl (32-36); MEAN PLATELET VOLUME 9.9 fL (7.4-10.4); PLATELET COUNT 183 K/uL (130-400); RED CELL DISTRIBUTION WIDTH CV 14.6 % (11.5-14.5); RED CELL DISTRIBUTION WIDTH SD 45.9 fL (36.4-46.3); WHITE BLOOD COUNT 7.55 K/uL (4.8-10.8)
[2018-01-20 06:35] LABS: CREATININE 1.11 mg/dl (0.60-1.40)
[2018-01-20 07:01] VITALS: BP_SYST 124; BP_SYST 145; BP_DIAS 103; BP_DIAS 86; PULSE 86; TEMP 36.8; O2SAT 94
[2018-01-20] MEDS: PANTOprazole SOD 40 MG TAB PO SCH ×2 (08:17→20:55)
[2018-01-20] MEDS: BuPROPion SR 150 MG TABCR PO SCH ×2 (08:17→20:55)
[2018-01-20] MEDS: MULTIVITAMIN TAB PO SCH (08:17)
[2018-01-20] MEDS: MAGNESIUM OXIDE 400 MG TAB PO SCH ×2 (08:17→20:56)
[2018-01-20] MEDS: ENOXAPARIN 40 MG/0.4 ML SYR SQ SCH (08:18)
[2018-01-20] MEDS: BUPRENORPHINE/NALOXONE 8/2 MG TAB PO SCH ×2 (08:52→15:54)
[2018-01-20] MEDS: VANCOMYCIN IV 1,250 MG in SODIUM CHLORIDE 0.9% 250ML 250 ML IV SCH (08:52)
--- NOTE | 2018-01-20 10:56 | Progress Note ---
Subjective Date of Service: Jan 20, 2018. Subjective Pt evaluation today including: conversation w/ patient, physical exam, chart review, lab review pt oob to chair, overall feeling better. does admit to continue diarrhea but improving. on po vanco and IV vanco, tolerating well. 4/5, 4/6 cultures with MRSA, 4/8 culture pending. no hip pain. Echo negative for veg. UDS + ecstasy. all remaining ros reviewed and are negative. Problem List Medical Problems: (1) Pneumonia Status: Acute Objective Vital Signs Date Time Temp Pulse Resp B/P (MAP) Pulse Ox O2 Delivery O2 Flow Rate FiO2 01/20/18 07:01 36.8 86 20 145/103 (117) 94 Room Air 124/86 (99) 01/20/18 00:00 Room Air 01/19/18 22:48 37.1 106 18 143/97 (112) 93 Room Air 01/19/18 20:00 Room Air 01/19/18 16:10 Room Air 01/19/18 15:05 37.2 96 16 128/88 (101) 91 Room Air Physical Exam General Appearance: WD/WN, no apparent distress Eyes: normal inspection, EOMI Neck: supple Respiratory/Chest: lungs clear, normal breath sounds, no respiratory distress Cardiovascular: regular rate, rhythm, no edema, no murmur Abdomen: non tender, soft Extremities: non-tender, no pedal edema Neurologic/Psychiatric: alert, oriented x 3 Skin: normal color Laboratory Results Item Value Date Time Blood Culture - Final Complete 01/17/18 1534 Blood Staph. Aureus Mrsa Blood Culture - Final Complete 01/17/18 1445 Blood Staph. Aureus Mrsa Blood Culture - Final Complete 01/16/18 1425 Blood Staph. Aureus Mrsa Blood Culture - Final Complete 01/16/18 1408 Blood Staph. Aureus Mrsa C.difficile Toxin B Gene (PCR) - Final Complete 01/17/18 1358 Stool Positive for C. difficile toxin B gene Last 24 Hours Test 01/19/18 12:02 01/20/18 05:40 Vancomycin Level Trough 17.9 mcg/ml White Blood Count 7.55 K/uL Red Blood Count 3.60 M/uL Hemoglobin 10.2 g/dL Hematocrit 30.8 % Mean Corpuscular Volume 85.6 fL Mean Corpuscular Hemoglobin 28.3 pg Mean Corpuscular Hemoglobin Concent 33.1 g/dl RDW Standard Deviation 45.9 fL RDW Coefficient of Variation 14.6 % Platelet Count 183 K/uL Mean Platelet Volume 9.9 fL Creatinine 1.11 mg/dl Est Creatinine Clear Calc Drug Dose 89.0 ml/min Estimated GFR () 88.6 Estimated GFR (Non- 76.5 Magnesium Level 1.7 mg/dl Assessment and Plan (1) MRSA (methicillin resistant Staphylococcus aureus) septicemia Assessment & Plan: follow repeat blood cultures, continue vanco for now. will not be candidate for picc with h/ IVDA and + UDS. (2) C. difficile colitis Assessment & Plan: continue po vanco
[2018-01-20 12:15] LABS: HEPATITIS C VIRAL RNA BY PCR <15 NOT DETECTED IU/ML (<15); HEPATITIS C VIRAL RNA(LOG) PCR <1.18 NOT DETECTED LOG IU/ML (<1.18)
[2018-01-20] MEDS: MAGNESIUM SULFATE 1GM / D5W 1 GM in PREMIXED IN D5W 100 ML IV SCH ×2 (13:01→14:42)
--- NOTE | 2018-01-20 14:42 | Cardiology Consultation ---
Cardiology Consultation Date of Service Jan 20, 2018. Cardiology Consultation Indication: Consultation for endocarditis History: This is a 52-year-old male patient with a history of previous endocarditis who presented with nausea vomiting and diarrhea. He has had multiple blood cultures which are positive for staph aureus. We have been asked to see the patient in regard to transesophageal echocardiogram. His transthoracic echocardiogram, which I reviewed, did not show any significant vegetations. He has no current cardiac complaints. No prior history of swallowing difficulties or esophageal stricture. He should be a good candidate for AB Allergies: No known medical allergies Current Inpatient Medications Medications (Trade) Dose Ordered Sig/Adelita Route Start Time Stop Time Status Last Admin Dose Admin Acetaminophen (Tylenol Tab) 650 mg Q4H PRN PO 01/16/18 14:30 02/15/18 14:29 Ondansetron HCl (Zofran Inj) 4 mg Q6H PRN IV 01/16/18 14:30 02/15/18 14:29 Bupropion HCl (Wellbutrin-Sr Tab) 150 mg BID PO 01/16/18 21:00 02/15/18 20:59 01/20/18 08:17 150 MG Multivitamins (Multivitamin Tab) 1 tab DAILY PO 01/17/18 09:00 02/16/18 08:59 01/20/18 08:17 1 TAB Pantoprazole Sodium (Protonix Tab) 40 mg BID PO 01/16/18 21:00 02/15/18 20:59 01/20/18 08:17 40 MG Miscellaneous Information (Consult) 1 ea UD PRN N/A 01/16/18 18:15 02/15/18 18:14 Vancomycin HCl 1250 mg/Sodium Chloride 275 ml @ 125 mls/hr Q10H IV 01/17/18 00:00 01/24/18 00:00 01/20/18 08:52 125 MLS/HR Buprenorphine/ Naloxone (Suboxone 8/2MG Tab) 1 tab BID@0900,1500 PO 01/17/18 15:00 02/16/18 14:59 01/20/18 08:52 1 TAB Vancomycin HCl (Vancomycin Oral Soln) 125 mg Q6H PO 01/17/18 17:00 01/31/18 16:59 01/20/18 11:39 125 MG Raspberry (Raspberry Syrup 5ml Cup) 5 ml Q6H PO 01/17/18 17:00 01/31/18 16:59 01/20/18 11:40 5 ML Enoxaparin Sodium (Lovenox Inj) 40 mg QAM SQ 01/18/18 09:00 02/17/18 08:59 01/20/18 08:18 40 MG Magnesium Oxide (Mag-Ox Tab) 400 mg BID PO 01/19/18 08:45 02/18/18 08:44 01/20/18 08:17 400 MG Past medical history: As outlined above the patient has a history of endocarditis which was treated several years ago. He also has a history of IV drug abuse Social history: As above he has a history of IV drug abuse. Family medical history: Noncontributory General: The patient denies weight change, night sweats, fever, chills. Head: The patient denies headache and prior head trauma. Cardiovascular: The patient denies chest pain or chest discomfort, dyspnea on exertion, palpitations, PND, orthopnea, edema, spontaneous shortness of breath, syncope and near syncope. Pulmonary: The patient denies cough, wheeze, pleurisy, hemoptysis, sputum, and excessive snoring. Gastrointestinal: The patient denies nausea, vomiting, diarrhea, constipation, bloating, hematemesis, hematochezia, and abdominal pain. Skin: The patient denies diaphoresis and rash. Musculoskeletal: The patient denies joint pain, joint swelling, myalgia, back pain, neck pain and prior injuries. Neurological: The patient denies prior stroke and seizures Vital Signs Past 12 Hours Date Time Temp Pulse Resp B/P (MAP) Pulse Ox O2 Delivery O2 Flow Rate FiO2 01/20/18 08:10 Room Air 01/20/18 07:01 36.8 86 20 145/103 (117) 94 Room Air 124/86 (99) General Appearance: Alert and Oriented x3. NAD. Head: Normocephalic Atraumatic. Eyes: PERRLA, EOMI, conjunctiva and sclera clear Neck: Supple. No carotid bruits noted. No JVD. No HJD. Respiratory: Breath sounds clear to auscultation bilaterally. No w/r/r. Cardiovascular: Reg rate and rhythm. S1 and S2 noted. No murmurs, rubs, gallops. PMI non displace. Abdomen: Normal bowel sounds, soft nontender. no abdominal bruits. Extremities: No edema, no clubbing or cyanosis. distal pulses 2/4 bilaterally. Neuro: No focal deficits. Psychiatric: Normal affect. Last 24 Hours Test 01/20/18 05:40 White Blood Count 7.55 K/uL Red Blood Count 3.60 M/uL Hemoglobin 10.2 g/dL Hematocrit 30.8 % Mean Corpuscular Volume 85.6 fL Mean Corpuscular Hemoglobin 28.3 pg Mean Corpuscular Hemoglobin Concent 33.1 g/dl RDW Standard Deviation 45.9 fL RDW Coefficient of Variation 14.6 % Platelet Count 183 K/uL Mean Platelet Volume 9.9 fL Creatinine 1.11 mg/dl Est Creatinine Clear Calc Drug Dose 89.0 ml/min Estimated GFR () 88.6 Estimated GFR (Non- 76.5 Magnesium Level 1.7 mg/dl Impression/recommendations: Given the patient's persistent bacteremia and prior history of endocarditis, I think it is reasonable to proceed with a transesophageal echocardiogram. I have explained the risk benefit and intent to the procedure to him. He is willing to proceed. The patient will be made n.p.o. after midnight and we will proceed tomorrow morning.
[2018-01-20 15:16] VITALS: BP 123/88; PULSE 94; TEMP 36.6; O2SAT 96
[2018-01-20] MEDS: DAPTOmycin IV 500 MG in SYRINGE 0 ML IV SCH (17:44)
--- NOTE | 2018-01-20 23:12 | Progress Note ---
Medicine Progress Note Date & Time of Visit: Jan 20, 2018 at 16:45. Subjective 52-year-old male with history of IV drug use presents to the ER with a history of abdominal pain nausea vomiting and diarrhea for 1 week. He continues to remain stable without fevers or chills. He denies abdominal pain or distention. He denies diarrhea. He is tolerating p.o. He continues to deny any cough or productive sputum. Breathing is stable. Repeat BLdCx were positive. Cards plans to perform AB in am. Objective Last 8 Hrs Date Time Temp Pulse Resp B/P (MAP) Pulse Ox O2 Delivery O2 Flow Rate FiO2 01/20/18 15:16 36.6 94 22 123/88 (100) 96 Room Air Physical Exam: GEN: WNWD, in no acute distress, alert and appropriate HEENT: NC/AT, PERRL, normal sclerae CARDIO: tachy rate, S1/2 heard without m/g/r LUNGS: CTA bilaterally, no crackles, rales or wheezes, good diaphragmatic excursion ABD: soft, non-tender, non-distended, no rebound or guarding, +BS EXTREMITY: RP and DP palpable 2+ bilat, no LE swelling or edema, extremities are warm and well-perfused NEURO: CN 2-12 grossly intact, no gross focal deficits. MUSC: 5/5 strength throughout, no gross focal deficits SKIN: warm and dry Laboratory Results: 01/20/18 05:40 01/19/18 07:38 01/20/18 05:40 Test 01/16/18 12:47 01/16/18 12:55 01/16/18 13:05 01/16/18 13:10 Creatine Kinase MB Ratio (0-3.0) Immature Granulocyte % (Auto) 0.6 % White Blood Count 23.34 K/uL (4.8-10.8) Red Blood Count 4.53 M/uL (4.7-6.1) Hemoglobin 13.0 g/dL (14.0-18.0) Hematocrit 38.4 % (42-52) Mean Corpuscular Volume 84.8 fL (80-100) Mean Corpuscular Hemoglobin 28.7 pg (25-34) Mean Corpuscular Hemoglobin Concent 33.9 g/dl (32-36) Platelet Count 221 K/uL (130-400) Mean Platelet Volume 10.3 fL (7.4-10.4) Neutrophils (%) (Auto) 88.9 % Lymphocytes (%) (Auto) 5.2 % Monocytes (%) (Auto) 5.1 % Eosinophils (%) (Auto) 0.0 % Basophils (%) (Auto) 0.2 % Neutrophils # (Auto) 20.77 K/uL (1.4-6.5) Lymphocytes # (Auto) 1.21 K/uL (1.2-3.4) Monocytes # (Auto) 1.18 K/uL (0.11-0.59) Eosinophils # (Auto) 0.00 K/uL (0-0.5) Basophils # (Auto) 0.04 K/uL (0-0.2) Immature Granulocyte # (Auto) 0.14 K/uL (0.00-0.02) Nucleated RBC Absolute Count (auto) 0.02 K/uL (0-0) Nucleated Red Blood Cells % 0.1 % Prothrombin Time 13.8 SECONDS (9.0-12.0) Prothromb Time International Ratio 1.3 (0.9-1.1) Activated Partial Thromboplast Time 28.5 SECONDS (21.0-31.0) Partial Thromboplastin Ratio 1.1 Direct Bilirubin 0.4 mg/dl (0-0.2) Creatine Kinase MB < 0.5 ng/ml (0.5-3.6) Lipase 175 U/L (73-393) Bedside Troponin I < 0.030 ng/ml (0-0.045) Urine Color DK YELLOW Urine Appearance CLEAR (CLEAR) Urine pH 6.5 (4.5-7.5) Urine Specific [place] 1.025 (1.000-1.030) Urine Protein 2+ (NEG) Urine Glucose (UA) NEG (NEG) Urine Ketones 1+ (NEG) Urine Occult Blood NEG (NEG) Urine Nitrite POS (NEG) Urine Bilirubin NEG (NEG) Urine Urobilinogen NEG (NEG) Urine Leukocyte Esterase SMALL (NEG) Urine WBC (Auto) 10-30 /hpf (0-5) Urine RBC (Auto) 0-4 /hpf (0-4) Urine Hyaline Casts (Auto) 1-5 /lpf (0-5) Urine Epithelial Cells (Auto) 0-5 /lpf (0-5) Urine Bacteria (Auto) 2+ (NEG) Urine Crystals See comments (NONE PRSENT) Urine Yeast (Auto) (NONE PRSENT) Test 01/16/18 13:28 01/16/18 14:08 01/16/18 14:25 01/17/18 05:52 Bedside Lactic Acid Venous 1.20 mmol/L (0.90-1.70) Lactic Acid Level 1.3 mmol/L (0.4-2.0) Ammonia 39.2 umol/L (11-32) Total Bilirubin 1.5 mg/dl (0.2-1) Aspartate Amino Transf (AST/SGOT) 11 U/L (15-37) Alanine Aminotransferase (ALT/SGPT) 17 U/L (12-78) Alkaline Phosphatase 82 U/L (45-117) Total Protein 5.9 gm/dl (6.4-8.2) Albumin 2.3 gm/dl (3.4-5.0) Globulin 3.6 gm/dl (2.5-4.0) Albumin/Globulin Ratio 0.6 (0.9-2) Procalcitonin 1.49 ng/ml (0-0.5) Test 01/17/18 20:16 01/18/18 05:33 01/19/18 07:38 01/19/18 12:02 Urine Opiates Screen NEG (NEG) Urine Methadone, Qualitative NEG (NEG) Urine Barbiturates NEG (NEG) Urine Phencyclidine (PCP) Level NEG (NEG) Ur Amphetamine/Methamphetamine NEG (NEG) MDMA (Ecstasy) Screen POS (NEG) Urine Benzodiazepines Screen NEG (NEG) Urine Cocaine Metabolite NEG (NEG) Urine Marijuana (THC) NEG (NEG) Phosphorus Level 2.9 mg/dl (2.5-4.9) Hepatitis C RNA (PCR) IUs/ml <15 NOT DETECTED IU/ML Hepatitis C RNA (PCR) log IUs/ml <1.18 NOT DETECTED LOG HIV (1&2) Ab and P24 Ag, 4th Gener NEG (NEG) Anion Gap 9.0 mmol/L (3-11) BUN/Creatinine Ratio 6.6 (10-20) Calcium Level 8.3 mg/dl (8.5-10.1) Vancomycin Level Trough 17.9 mcg/ml (SEE COMMENT) Test 01/20/18 05:40 Red Blood Count 3.60 M/uL (4.7-6.1) Mean Corpuscular Volume 85.6 fL (80-100) Mean Corpuscular Hemoglobin 28.3 pg (25-34) Mean Corpuscular Hemoglobin Concent 33.1 g/dl (32-36) RDW Standard Deviation 45.9 fL (36.4-46.3) RDW Coefficient of Variation 14.6 % (11.5-14.5) Mean Platelet Volume 9.9 fL (7.4-10.4) Est Creatinine Clear Calc Drug Dose 89.0 ml/min Estimated GFR () 88.6 Estimated GFR (Non- 76.5 Magnesium Level 1.7 mg/dl (1.8-2.4) Date/Time Source Procedure Growth Status 01/19/18 14:57 Blood Blood Culture - Preliminary Gram Positive Cocci Resulted 01/16/18 16:00 Nasal MRSA DNA Surveillance Screen - Final Specimen Positive for MRSA by DNA Probe Complete 01/17/18 13:58 Stool Shiga Toxin Test - Final No E. Coli shiga toxin 1 or shiga tox... Complete 01/17/18 13:58 Stool Stool Culture - Final NO SALMONELLA ISOLATED,... Complete 01/16/18 13:10 Urine , Clean Catch Urine Culture - Final Staph. Aureus Mrsa Complete Last 24 Hours Test 01/20/18 05:40 White Blood Count 7.55 K/uL Red Blood Count 3.60 M/uL Hemoglobin 10.2 g/dL Hematocrit 30.8 % Mean Corpuscular Volume 85.6 fL Mean Corpuscular Hemoglobin 28.3 pg Mean Corpuscular Hemoglobin Concent 33.1 g/dl RDW Standard Deviation 45.9 fL RDW Coefficient of Variation 14.6 % Platelet Count 183 K/uL Mean Platelet Volume 9.9 fL Creatinine 1.11 mg/dl Est Creatinine Clear Calc Drug Dose 89.0 ml/min Estimated GFR () 88.6 Estimated GFR (Non- 76.5 Magnesium Level 1.7 mg/dl Assessment & Plan 52-year-old male with history of IV drug use presents to the ER with a history of abdominal pain nausea vomiting and diarrhea for 1 week. He continues to remain stable without fevers or chills. He denies abdominal pain or distention. He denies diarrhea. He is tolerating p.o. He continues to deny any cough or productive sputum. Breathing is stable. Repeat BLdCx were positive. Cards plans to perform AB in am. 1. Bacteremia secondary to staph aureus-continue empiric vancomycin. ID stopped empiric Zosyn. Third set of blood cultures were positive GPC's 2 out of 2 bottles. ID was made aware. T EEG is planned for the morning. Continue infectious disease recommendations 2. Diarrhea secondary to C. difficile infection-. Continue vancomycin p.o. 3. Bacteriuria-likely secondary to bacteremia patient. Patient is having no symptoms to suggest cystitis. MRSA is present in culture, likely secondary to bacteremia. 5. hypomagnesemia-likely secondary to GI losses-persistent, continue supplemental magnesium 7. Hepatitis C virus-patient reports spontaneous clearance. Viral load is pending. 8. History of IV drug use-on Suboxone, dosage was confirmed with outpatient clinic today. HIV is negative. AB planned for a.m. 9. Anemia-likely related to dilution from IV fluids given his admission. No active bleeding is present. Continue to monitor CBC periodically. No indication for transfusion at this time. DVT prophylaxis-Lovenox Full code Disposition-likely here for at least 2 more days until repeat blood cultures showed infection has cleared. Kisha Norman DO [facility] hospitalist Consultants: [place] Current Inpatient Medications: Current Inpatient Medications Medications (Trade) Dose Ordered Sig/Adelita Route Start Time Stop Time Status Last Admin Dose Admin Acetaminophen (Tylenol Tab) 650 mg Q4H PRN PO 01/16/18 14:30 02/15/18 14:29 Ondansetron HCl (Zofran Inj) 4 mg Q6H PRN IV 01/16/18 14:30 02/15/18 14:29 Bupropion HCl (Wellbutrin-Sr Tab) 150 mg BID PO 01/16/18 21:00 02/15/18 20:59 01/20/18 08:17 150 MG Multivitamins (Multivitamin Tab) 1 tab DAILY PO 01/17/18 09:00 02/16/18 08:59 01/20/18 08:17 1 TAB Pantoprazole Sodium (Protonix Tab) 40 mg BID PO 01/16/18 21:00 02/15/18 20:59 01/20/18 08:17 40 MG Buprenorphine/ Naloxone (Suboxone 8/2MG Tab) 1 tab BID@0900,1500 PO 01/17/18 15:00 02/16/18 14:59 01/20/18 15:54 1 TAB Vancomycin HCl (Vancomycin Oral Soln) 125 mg Q6H PO 01/17/18 17:00 01/31/18 16:59 01/20/18 11:39 125 MG Raspberry (Raspberry Syrup 5ml Cup) 5 ml Q6H PO 01/17/18 17:00 01/31/18 16:59 01/20/18 11:40 5 ML Enoxaparin Sodium (Lovenox Inj) 40 mg QAM SQ 01/18/18 09:00 02/17/18 08:59 01/20/18 08:18 40 MG Magnesium Oxide (Mag-Ox Tab) 400 mg BID PO 01/19/18 08:45 02/18/18 08:44 01/20/18 08:17 400 MG Daptomycin 500 mg/ Syringe 10 ml @ 5 mls/min Q24H IV 01/20/18 18:00 02/03/18 17:59
[2018-01-20 23:31] VITALS: BP 136/97; PULSE 101; TEMP 37; O2SAT 94
[2018-01-21] VITALS (12 sets, daily range): BP systolic 108–145; BP diastolic 70–97; PULSE 83–99; TEMP 36.4–36.8; O2SAT 91–97
[2018-01-21] MEDS: RASPBERRY SYRUP 5 ML UDP PO SCH ×4 (05:07→23:26)
[2018-01-21] MEDS: VANCOMYCIN HCL 125 MG/2.5ML SOLN PO SCH ×4 (05:07→23:26)
[2018-01-21] MEDS ORDERED: BENZOCAIN/TETRACA/BUTAM SPRAY 200 APPLN/20 GM SPRY ONE (08:04)
[2018-01-21] MEDS ORDERED: MIDAZOLAM HCL 1 MG/ML 2ML VIAL ONE (08:04)
[2018-01-21] MEDS ORDERED: FENTANYL CITRATE INJ 50 MCG/1 ML 2 ML VIAL ONE (08:04)
[2018-01-21] MEDS ORDERED: CANNULA ONE (08:04)
[2018-01-21] MEDS: PANTOprazole SOD 40 MG TAB PO SCH ×2 (08:08→20:44)
[2018-01-21] MEDS: BUPRENORPHINE/NALOXONE 8/2 MG TAB PO SCH ×2 (08:08→15:53)
[2018-01-21] MEDS: BuPROPion SR 150 MG TABCR PO SCH (08:08)
[2018-01-21] MEDS: MAGNESIUM OXIDE 400 MG TAB PO SCH ×2 (08:08→20:44)
[2018-01-21] MEDS: MULTIVITAMIN TAB PO SCH (08:08)
[2018-01-21 08:16] LABS: CALCIUM 8.9 mg/dl (8.5-10.1); CREATININE 1.23 mg/dl (0.60-1.40); POTASSIUM 3.8 mmol/L (3.5-5.1)
--- NOTE | 2018-01-21 09:35 | [facility] Post Operative Brief Note ---
Immediate Operative Summary Operative Date Jan 21, 2018. Pre-Operative Diagnosis Endocarditis Post-Operative Diagnosis no endocarditis Procedure(s) Performed AB Surgeon letha Stabber Surgeon(s) none Estimated Blood Loss none Findings Consistent with Post-Op Diagnosis Specimens none Drains None Anesthesia Type IV Sedat Cons RN Only Complication(s) none Disposition Accompanied Pt To Recover: Disposition: regular room
--- NOTE | 2018-01-21 09:36 | Pre Sedation Assessment ---
Pre Sedation Assessment General Date of Sedation: Jan 21, 2018. Vital Signs Past 12 Hours Date Time Temp Pulse Resp B/P (MAP) Pulse Ox O2 Delivery O2 Flow Rate FiO2 01/21/18 08:26 87 12 152/91 (111) 96 Nasal Cannula 2 01/21/18 00:00 Room Air 01/20/18 23:31 37.0 101 20 136/97 (110) 94 Room Air Review Cardiovascular: regular rate, rhythm Lungs: lungs clear Pre-Sedation Airway Assessment Smoking Status: Former Smoker Hx of Sleep Apnea: No Hx of difficult intubation: No Short Thick Neck: No Thyro-mental Distance: > 3 Finger Breadths Oral Cavity: Dentures Mallampati Classification: Class II ASA Classification: Class III NPO Status Date of Last Intake of Fluids: Jan 20, 2018 Time of Last Intake of Fluids: 2358 Date of Last Intake of Solids: Jan 20, 2018 Time of Last Intake of Solids: 2358 Procedure Planning Contraindications for Sedation: None Current Medications Reviewed: Yes Notes The planned sedation has been discussed with the patient. Informed Consent was obtained. I have identified the patient, determined the appropriateness of sedation and have assessed the patient immediately prior to the procedure. All medicine(s) and interventions are by my order.
--- NOTE | 2018-01-21 09:38 | Post Sedation Assessment ---
Post Sedation Assessment General Date of Sedation Jan 21, 2018. Vital Signs: Vital Signs Past 12 Hours Date Time Temp Pulse Resp B/P (MAP) Pulse Ox O2 Delivery O2 Flow Rate FiO2 01/21/18 08:26 87 12 152/91 (111) 96 Nasal Cannula 2 01/21/18 00:00 Room Air 01/20/18 23:31 37.0 101 20 136/97 (110) 94 Room Air Post Procedure Recovery Score Activity: (2) Moves 4 extremities * Respiration: (2) Deep breath/cough Consciousness: (2) Fully Awake Oxygen Saturation: (2) > 92% On Room Air Discharge Sedation Level of Care: Fast Track Phase II Post Sedation Plan On clinical assessment, the patient appears to have tolerated the sedation without complications. Patient is recovering as anticipated. Patient will continue to be monitored by nursing and may be discharged when sedation discharge criteria are met per below protocol. Upon Completions of procedure and additional 15 minutes continue every 5 minute vital signs and the P.A.R. score; then discharge to a Phase I or Fast Track to Phase II per the following guidelines: * Discharge Patient to appropriate Phase II area if PAR is 8 or greater or return to pre- procedure baseline. The post - procedure orders will be as directed. * If PAR score is less than 8 or not return to pre-procedure baseline then patient will follow Phase I monitoring till PAR is reached for Phase II. The Phase I may be done in procedure room or may call to secure a Phase I area. * If naloxone or flumazenil are used for reversal, hold in Phase I for an additional 60 -120 minutes before discharge to Phase II. Please call the Sedation Physician to re-evaluate and complete post-note for discharge to Phase II area. Do NOT discharge from procedure sedation or Phase 1 until post- sedation evaluation note is complete by procedure /sedation MD Sedation Discharge Instructions to be given to the patient at discharge to home.
--- NOTE | 2018-01-21 10:11 | TEE ---
*NOTICE TO RECEIVING [employer] This information is strictly Confidential and protected under [place] law. [place] law prohibits you from making any further disclosure of this information unless further disclosure is expressly permitted by the written consent of the person to whom it pertains or is authorized by law. A general authorization for the release of medical or other information is not sufficient for this purpose. Hospital accepts no responsibility if the information is made available to any other person, INCLUDING THE PATIENT. Interpretation Summary * Name: MELISSA ADHIKARI Study Date: 01/21/2018 08:02 AM BP: 152/91 mmHg * Patient Location: .[id number] HR: 97 * : 1965 (M/d/yyyy) Gender: Male Height: 69 in * Age: 52 yrs Ethnicity: CA Weight: 206 lb * Ordering Physician: Waldo Alex * Referring Physician: Self, Referred * Performed By: Luisa Chen RDCS * * Reason For Study: Endocarditis * BSA: 2.1 m2 * -- Conclusions -- * This was a technically limited study as the right heart was not well visualized. The pulmonic valve was not visualized. Limited imaging of the tricuspid valve suggests no vegetations. The left heart was well visualized and the mitral and aortic valves were free of vegetations or other findings that would suggest endocarditis. Procedure Details * The transesophageal portion of this study was personally supervised by the undersigned interpreting physician. * The study was performed in Cardiopulmonary Department. * Time out was conducted by the physician, nurse, and transport tank technician with positive identification of patient and procedure. * Informed consent for Transesophageal Echocardiogram was obtained prior to the procedure. * An intravenous line was placed. A topical anesthetic agent was used for oropharangeal anesthesia. A bite block was inserted. * The patient's vital signs, including blood pressure, heart rate, pulse oximetry and cardiac rhythm were monitored throughout the procedure . * Midazolam 3 mg administered for sedation. * The posterior oropharynx was anesthetized using a topical anesthetic spray. A bite guard was inserted. * A multifrequency, multiplane transesopheageal echocardiographic endoscope was inserted and manipulated in the standard fashion to achieve multiplane views. * The transesophageal probe was passed without difficulty. * The usual views were obtained; basal, mid-esophageal, transgastric and aortic views. * The patient tolerated the procedure well without evidence of orophangeal or esophageal trauma. * Probe #3 utilized for procedure. Start time 0916. End time 930. * A 2D transesophageal echocardiogram with color flow Doppler was performed. Left Ventricle * The left ventricle is normal in size. * Left ventricular systolic function is normal. * The left ventricular wall motion is normal at rest. Right Ventricle * The right ventricle is normal size. * The right ventricular systolic function is normal. Atria * The left atrial size is normal. * Right atrial size is normal. * The interatrial septum is intact with no evidence for an atrial septal defect. Mitral Valve * The mitral valve anatomy is normal. * There is no vegetation seen on the mitral valve. * Significant mitral regurgitation is absent. Tricuspid Valve * The tricuspid valve is not well visualized, but is grossly normal. * There is no tricuspid valve vegetation. * Significant tricuspid regurgitation is absent. Aortic Valve * The aortic valve is tricuspid. The leaflet thickness if normal. There is no aortic stenosis, and no significant insufficiency. * The aortic valve opens well. * There is no aortic valvular vegetation. * There is no significant aortic regurgitation. Pulmonic Valve * The pulmonic valve is not well visualized. Great Vessels * The aortic root and proximal ascending aorta are normal sized. Pericardium * There is no pericardial effusion.
[2018-01-21] MEDS: ENOXAPARIN 40 MG/0.4 ML SYR SQ SCH (12:09)
--- NOTE | 2018-01-21 13:33 | Progress Note ---
Subjective Date of Service: Jan 21, 2018. Subjective Pt evaluation today including: conversation w/ patient, physical exam, chart review, lab review pt seen after AB, appropriate but lethargic. Remains bacteremic, 01/16,01/17,48 cultures with S. aureus, repeat done today and are pending. was changed from vanco to dapto yesterday by pharmacy due to trough <20 and ongoing bacteremia. tolerating dapto well. no f/c. AB today without vegetations. CT a/p with contrast on admission negative for infection. no back pain, no f/c. no cough, sob, cp. all remaining ros reviewed and are negative. Problem List Medical Problems: (1) Pneumonia Status: Acute Objective Vital Signs Date Time Temp Pulse Resp B/P (MAP) Pulse Ox O2 Delivery O2 Flow Rate FiO2 01/21/18 13:00 36.7 83 18 136/88 (104) 96 Room Air 01/21/18 12:06 36.7 85 16 129/92 (104) 95 Room Air 01/21/18 11:15 36.6 90 18 114/85 (95) 92 Room Air 01/21/18 10:45 36.6 85 18 108/79 (89) 97 Room Air 01/21/18 10:30 36.4 95 18 125/86 (99) 91 Room Air 01/21/18 10:13 92 16 111/75 (87) 94 Room Air 01/21/18 10:03 90 16 116/72 (87) 92 Room Air 01/21/18 09:53 94 12 115/69 (84) 91 Room Air 01/21/18 09:43 97 12 123/70 (87) 92 Room Air 01/21/18 09:32 97 12 123/70 (87) 95 Nasal Cannula 2 01/21/18 09:31 Nasal Cannula 2 01/21/18 09:30 98 12 133/78 94 Nasal Cannula 2 01/21/18 09:25 93 10 124/70 95 Nasal Cannula 2 01/21/18 09:20 92 12 145/87 96 Nasal Cannula 2 01/21/18 09:16 91 10 128/82 96 Nasal Cannula 2 01/21/18 08:26 87 12 152/91 (111) 96 Nasal Cannula 2 01/21/18 08:00 Room Air 01/21/18 00:00 Room Air 01/20/18 23:31 37.0 101 20 136/97 (110) 94 Room Air 01/20/18 16:10 Room Air 01/20/18 15:16 36.6 94 22 123/88 (100) 96 Room Air Physical Exam General Appearance: WD/WN, no apparent distress Eyes: normal inspection, EOMI Neck: supple Respiratory/Chest: lungs clear, normal breath sounds, no respiratory distress Cardiovascular: regular rate, rhythm, no edema Abdomen: non tender, soft, + distended Extremities: non-tender, no pedal edema Neurologic/Psychiatric: alert, oriented x 3 Skin: normal color Laboratory Results Item Value Date Time Blood Culture - Preliminary Resulted 01/19/18 1457 Blood Staphylococcus Aureus Blood Culture - Preliminary Resulted 01/19/18 1456 Blood Staphylococcus Aureus Blood Culture - Final Complete 01/17/18 1534 Blood Staph. Aureus Mrsa Blood Culture - Final Complete 01/17/18 1445 Blood Staph. Aureus Mrsa Blood Culture - Final Complete 01/16/18 1425 Blood Staph. Aureus Mrsa Blood Culture - Final Complete 01/16/18 1408 Blood Staph. Aureus Mrsa Urine Culture - Final Complete 01/16/18 1310 Urine , Clean Catch Staph. Aureus Mrsa C.difficile Toxin B Gene (PCR) - Final Complete 01/17/18 1358 Stool Positive for C. difficile toxin B gene Last 24 Hours Test 01/21/18 07:33 Sodium Level 137 mmol/L Potassium Level 3.8 mmol/L Chloride Level 102 mmol/L Carbon Dioxide Level 28 mmol/L Anion Gap 7.0 mmol/L Blood Urea Nitrogen 7 mg/dl Creatinine 1.23 mg/dl Est Creatinine Clear Calc Drug Dose 80.2 ml/min Estimated GFR () 78.3 Estimated GFR (Non- 67.6 BUN/Creatinine Ratio 5.6 Random Glucose 96 mg/dl Calcium Level 8.9 mg/dl Magnesium Level 2.0 mg/dl Total Creatine Kinase 18 U/L Assessment and Plan (1) MRSA (methicillin resistant Staphylococcus aureus) septicemia Assessment & Plan: continue with dapto, due not feel he would be a candidate for picc with ongoing drug use, also blood cultures remain +. No source identified, ct abd/pelvis negative, AB negative. suggest ct chest, mri spine to look for source (2) C. difficile colitis
--- NOTE | 2018-01-21 16:12 | DIAGNOSTIC IMAGING REPORT ---
(CHEST) THORAX WITHOUT CT DOSE: 320.07 mGy.cm CLINICAL HISTORY: 52 years-old Male with bacteremia. etiology?. History of tree-in-bud opacities within the left lung base. Acute bacteremia TECHNIQUE: Multiaxial CT images of the chest were performed without contrast. A dose lowering technique was utilized adhering to the principles of ALARA. COMPARISON: CT abdomen and pelvis 01/16/2018, CTA chest 01/07/2017 FINDINGS: Nodules within the thyroid are seen measuring up to 1.3 cm within the posterior right thyroid lobe. Evaluation for adenopathy is limited without the use of IV contrast. Prominent and enlarged mediastinal lymph nodes are redemonstrated which have decreased in size from prior study, for example 8 mm right paratracheal lymph node on image 45 series 4 previously measured 12 mm. Lower right paratracheal lymph node measuring 8 mm on image 91 series 4 is unchanged. 1.2 x 1.67 m subcarinal lymph node previously measured 1.4 x 2.1 cm. Right hilar lymph node measuring 1.3 cm in short axis previously measured 1.4 cm. Calcified right hilar lymph nodes are also noted. Mild multichamber cardiac enlargement with coronary arterial disease. Mild atherosclerosis of the thoracic aorta. The unopacified pulmonary arterial tree is unremarkable. Mild upper lobe predominant centrilobular emphysema. Calcified granulomas are noted within the right upper lobe. There are multiple scattered nodular and consolidative opacities which are randomly distributed within all lobes bilaterally. This includes a 2.0 cm opacity of the basal left lower lobe, image 213 series 4, 2.3 cm opacity of the posterior basal segment right lower lobe on image 239 series 4. Additional scattered smaller peripheral densities and ill-defined right perihilar opacity on image 156 series 4. There is improvement of the more confluent consolidative opacities of the right lower lobe seen on comparison study. Central airways appear patent. Spleen appears mildly enlarged. No acute process of the imaged upper abdomen identified. Mild symmetric bilateral gynecomastia. Mild multilevel endplate spurring and Schmorl's nodes about the thoracic spine. IMPRESSION: 1. Multisegmental multilobar distribution of randomly and mostly peripheral nodular and patchy consolidative opacities as above suggests infectious or inflammatory pneumonitis with septic emboli an additional differential consideration. Follow-up imaging to document resolution is recommended. 2. Mild mediastinal and right hilar adenopathy, improved from comparison study 01/07/2017 favors reactive process. 3. Emphysema. 4. Prior granulomatous disease. Electronically signed by: Amol Ham M.D. 01/21/2018 4:11 PM Dictated Date/Time: 01/21/2018 3:57 PM
[2018-01-21] MEDS: DAPTOmycin IV 500 MG in SYRINGE 0 ML IV SCH (17:41)
--- NOTE | 2018-01-21 19:36 | Progress Note ---
Internal Med Progress Note Date of Service: Jan 21, 2018. Provider Documentation: SUBJECTIVE: resting comfortably denies chest pain or sob no back pain or abdominal pain no diarrhea no nausea afebrile today OBJECTIVE: Vital Signs-as noted below Exam: General-alert and oriented. Not in distress ENT-normal hearing. Neck-No neck masses Lungs-CTA b/l no wheezing or crackles Heart-S1 and S2 heard regular rate and rhythm no murmurs Abdomen-soft Bowels sounds present non tender no distension Extremities-no edema no erythema Musculoskeletal no spinal tenderness Neuro-alert and oriented moves extremities Lab data as noted below. ASSESSMENT & PLAN: 52-year-old male with history of IV drug use presents to the ER with a history of abdominal pain nausea vomiting and diarrhea for 1 week.Found to have persistent bacteremia 1. Bacteremia secondary to MRSA- was on IV vancomycin. ID stopped empiric Zosyn and vanco was changed to iv daptomycin.. Third set of blood cultures were positive GPC's 2 out of 2 bottles. AB negative for vegetations. CT chest showing multilobar consolidative opacities. Changed dapto to zyvox to cover the lings( stopped Wellbutrin) Also ordered MRI spine to look for source as per ID recommendations. continue to monitor. 2. Diarrhea secondary to C. difficile infection-. Continue vancomycin p.o. 3. Bacteriuria-likely secondary to bacteremia patient. abx as above. 5. hypomagnesemia-likely secondary to GI losses-persistent, to continue supplemental magnesium. Will f/u labs. 7. Hepatitis C virus-patient reports spontaneous clearance. Viral load is pending. 8. History of IV drug use-on Suboxone, dosage was confirmed with outpatient clinic by . HIV is negative. AB no vegetations 9. Anemia-likely related to dilution from IV fluids given his admission. will monitor labs.. DVT prophylaxis-Lovenox Full code Disposition-to be determined. Vital Signs: Date Time Temp Pulse Resp B/P (MAP) Pulse Ox O2 Delivery O2 Flow Rate FiO2 01/21/18 16:32 36.7 97 18 134/97 (109) 95 Room Air 01/21/18 16:00 Room Air 01/21/18 15:53 36.7 94 18 131/95 (107) 96 Room Air 01/21/18 13:00 36.7 83 18 136/88 (104) 96 Room Air 01/21/18 12:06 36.7 85 16 129/92 (104) 95 Room Air 01/21/18 11:15 36.6 90 18 114/85 (95) 92 Room Air 01/21/18 10:45 36.6 85 18 108/79 (89) 97 Room Air 01/21/18 10:30 36.4 95 18 125/86 (99) 91 Room Air 01/21/18 10:13 92 16 111/75 (87) 94 Room Air 01/21/18 10:03 90 16 116/72 (87) 92 Room Air 01/21/18 09:53 94 12 115/69 (84) 91 Room Air 01/21/18 09:43 97 12 123/70 (87) 92 Room Air 01/21/18 09:32 97 12 123/70 (87) 95 Nasal Cannula 2 01/21/18 09:31 Nasal Cannula 2 01/21/18 09:30 98 12 133/78 94 Nasal Cannula 2 01/21/18 09:25 93 10 124/70 95 Nasal Cannula 2 01/21/18 09:20 92 12 145/87 96 Nasal Cannula 2 01/21/18 09:16 91 10 128/82 96 Nasal Cannula 2 01/21/18 08:26 87 12 152/91 (111) 96 Nasal Cannula 2 01/21/18 08:00 Room Air 01/21/18 00:00 Room Air 01/20/18 23:31 37.0 101 20 136/97 (110) 94 Room Air Lab Results: Results Past 24 Hours Test 01/21/18 07:33 Range/Units Sodium Level 137 136-145 mmol/L Potassium Level 3.8 3.5-5.1 mmol/L Chloride Level 102 98-107 mmol/L Carbon Dioxide Level 28 21-32 mmol/L Anion Gap 7.0 3-11 mmol/L Blood Urea Nitrogen 7 7-18 mg/dl Creatinine 1.23 0.60-1.40 mg/dl Est Creatinine Clear Calc Drug Dose 80.2 ml/min Estimated GFR () 78.3 Estimated GFR (Non- 67.6 BUN/Creatinine Ratio 5.6 10-20 Random Glucose 96 70-99 mg/dl Calcium Level 8.9 8.5-10.1 mg/dl Magnesium Level 2.0 1.8-2.4 mg/dl Total Creatine Kinase 18 39-308 U/L Microbiology Results 01/21/18 Blood Culture, Received Pending 01/21/18 Blood Culture, Received Pending
[2018-01-21] MEDS ORDERED: LINEZOLID / D5W 600 MG in PREMIXED IN D5W 300 ML IV SCH (22:00)
[2018-01-21] MEDS ORDERED: GADAVIST IV PRN (22:45)
[2018-01-21] MEDS: ACETAMINOPHEN 325 MG TAB PO PRN (23:27)
--- NOTE | 2018-01-21 23:39 | DIAGNOSTIC IMAGING REPORT ---
LUMBAR SPINE COMBINATION CLINICAL HISTORY: 52 years-old Male with bacteremia.etiolgy unclear. discitis?. Acute nausea, vomiting and diarrhea with bacteremia and spine pain. Concern for possible discitis osteomyelitis. COMPARISON: Thoracic and cervical spine MRI of same day, CT abdomen and pelvis 01/16/2018 TECHNIQUE: Multiplanar, multi sequence MRI of the lumbar spine was performed both with and without the use of 90 mg Gadavist FINDINGS: Large [id number] electronic assembly localizer images demonstrate no gross abnormality. Mild urinary bladder distention. Spleen and liver appear mildly enlarged. No aortic aneurysm or adenopathy identified. No focal bone marrow edema, acute fracture or subluxation. Conus medullaris terminates at L1-L2. No evidence of discitis osteomyelitis. There is no abnormal enhancement. Cauda equina appear to be within normal limits. 6 mm T1 and T2 hyperintense lesion involving the inferior portion of the L3 vertebral body suggests small hemangioma or focal fatty marrow. T12-L1: No central canal or neural foraminal stenosis. L1-L2: No central canal or neural foraminal stenosis. L2-L3: Mild intervertebral disc space narrowing with small circumferential disc bulge and mild facet arthrosis. No central canal or significant foraminal narrowing. Mild posterior spondylitic spurring. L3-L4: Mild intervertebral disc space narrowing with posterior spondylitic spurring and small circumferential disc bulge with mild facet arthrosis. There is flattening of the ventral thecal sac without central canal narrowing. There is mild bilateral foraminal stenosis. L4-L5: Mild intervertebral disc space narrowing with posterior spondylitic spurring and small posterior disc bulge with mild facet arthrosis. There is flattening of the ventral thecal sac without significant central canal stenosis. There is mild bilateral foraminal narrowing. L5-S1: Mild posterior intervertebral disc space narrowing with small posterior disc bulge and mild facet arthrosis. No significant central canal or foraminal narrowing. IMPRESSION: 1. No acute abnormality identified involving the lumbar spine. No abnormal enhancement or evidence of discitis/osteomyelitis. 2. Mild discogenic degenerative changes and facet arthrosis as above causing multilevel mild neuroforaminal stenosis. No high-grade central canal narrowing. The above report was generated using voice recognition software. It may contain grammatical, syntax or spelling errors. Electronically signed by: Amol Ham M.D. 01/21/2018 11:38 PM Dictated Date/Time: 01/21/2018 11:31 PM
[2018-01-22] MEDS: VANCOMYCIN HCL 125 MG/2.5ML SOLN PO SCH ×3 (05:18→17:25)
[2018-01-22] MEDS: RASPBERRY SYRUP 5 ML UDP PO SCH ×3 (05:18→17:24)
--- NOTE | 2018-01-22 07:01 | DIAGNOSTIC IMAGING REPORT ---
CERVICAL SPINE COMBO CLINICAL HISTORY: 52 years-old Male presenting with bacteremia. etiology unclear. discitis?, Cervical and shoulder pain. TECHNIQUE: Multisequence, multiplanar MR imaging of the cervical spine was performed before and after the administration of intravenous contrast. IV contrast: 9 mL of Gadavist. COMPARISON: None. FINDINGS: Localizer images: Right apical opacity better seen on chest CT performed earlier the same day. Straightening of normal cervical lordosis likely positional and related to degenerative change. Vertebral bodies maintain normal height, alignment, and bone marrow signal intensity. Mild diffuse intervertebral disc desiccation. Disc osteophyte complexes noted at C5-6 and C6-7 and minimally at C3-4. Degenerative changes further detailed below: C2-3: No significant neural foraminal or spinal canal narrowing. C3-4: Minimal disc osteophyte complex. No significant neural foraminal or spinal canal narrowing. C4-5: No significant neural foraminal or spinal canal narrowing. C5-6: Disc osteophyte complex/uncovertebral hypertrophy mildly effaces the ventral thecal sac without contouring of the spinal cord or complete effacement of the CSF aerated moderate bilateral neural foraminal narrowing. C6-7: Disc osteophyte complex/uncovertebral hypertrophy mildly effaces the ventral thecal sac greatest in the right lateral recess. Moderate to severe right and moderate left neural foraminal narrowing. C7-T1: No significant neural foraminal or spinal canal narrowing. Cervical spinal cord maintains normal morphology and signal intensity. Craniocervical junction normal. No epidural collection. Paraspinal soft tissues within normal limits. Postcontrast imaging demonstrates no abnormal spinal cord enhancement. No paraspinal fluid collection. No abnormal vertebral body or intervertebral disc enhancement. IMPRESSION: 1. No evidence of discitis osteomyelitis. 2. Multilevel degenerative changes most significant at C5-6 and C6-7, where there is neural foraminal narrowing as above. Electronically signed by: Manny Villa M.D. 01/22/2018 6:59 AM Dictated Date/Time: 01/22/2018 6:54 AM
--- NOTE | 2018-01-22 07:22 | DIAGNOSTIC IMAGING REPORT ---
THORACIC SPINE COMBO CLINICAL HISTORY: 52 years-old Male presenting with bacteremia. etiology unclear. discitis?, Right shoulder pain. TECHNIQUE: Multisequence, multiplanar MR imaging of the thoracic spine was performed before and after the administration of intravenous contrast. IV contrast: 9 mL of Gadavist. COMPARISON: CT chest from earlier the same day. FINDINGS: Localizer images: Unremarkable. Slightly exaggerated thoracic kyphosis. T1 hyperintense, fat-containing lesion in T6 consistent with benign hemangioma. Vertebral bodies otherwise maintain normal height, alignment, and bone marrow signal intensity. Intervertebral discs largely preserved. Few Schmorl's nodes noted. Small disc osteophyte complexes evident in the mid to lower thoracic spine at T7-8 through T9-10. These result in minimal effacement of the paracentral thecal sac without evidence of significant mass effect on the spinal cord. No significant spinal canal or neural foraminal narrowing. Thoracic spinal cord normal in morphology and signal intensity. Perineural cysts noted at T11-12. Postcontrast imaging demonstrates no abnormal enhancement of the spinal cord. No epidural collection. Paraspinal musculature normal without evidence of edema or abnormal enhancement. Rim-enhancing peripheral pleural-based lesion at the posterior basal right lower lobe noted as seen on recent chest CT. IMPRESSION: 1. No evidence of discitis osteolysis. 2. Mild degenerative changes without evidence of significant neural foraminal or spinal canal narrowing. 3. Rim-enhancing lesion at the posterior basal right lower lobe as seen on recent chest CT. Morphology raises concern for septic embolus. The report will be called/faxed according to standard departmental protocol. Electronically signed by: Manny Villa M.D. 01/22/2018 7:20 AM Dictated Date/Time: 01/22/2018 7:14 AM
[2018-01-22 07:23] VITALS: BP 132/95; PULSE 79; TEMP 36.5; O2SAT 93
[2018-01-22 07:24] LABS: CREATININE 1.29 mg/dl (0.60-1.40)
[2018-01-22] MEDS ORDERED: DAPTOmycin IV 500 MG in SODIUM CHLORIDE 0.9% 50ML 50 ML IV SCH (08:45)
[2018-01-22] MEDS: BUPRENORPHINE/NALOXONE 8/2 MG TAB PO SCH ×2 (09:46→14:34)
[2018-01-22] MEDS: PANTOprazole SOD 40 MG TAB PO SCH ×2 (09:46→20:11)
[2018-01-22] MEDS: DAPTOmycin IV 500 MG in SYRINGE 0 ML IV SCH (09:46)
[2018-01-22] MEDS: MAGNESIUM OXIDE 400 MG TAB PO SCH ×2 (09:47→20:11)
[2018-01-22] MEDS: MULTIVITAMIN TAB PO SCH (09:47)
[2018-01-22] MEDS: ENOXAPARIN 40 MG/0.4 ML SYR SQ SCH (09:48)
--- NOTE | 2018-01-22 10:32 | Progress Note ---
Subjective Date of Service: Jan 22, 2018. Subjective Pt evaluation today including: conversation w/ patient, physical exam, chart review, lab review pt seen in followup, no complaints, diarrhea improving. afebrile. tolerating abx. 01/21 blood cultures pending, all previous cultures 01/16,01/17,01/19 with MRSA. Had MRI cspine, tspine, lspine, no evidence for osteomyelitis however, t spine MRI concerning for right lung embolus. Ct chest done and revealed multiple enhancing perph lesions consistent with septic pulm emboli. AB negative for veg. tolerating abx, no cp, no sob, no cough. wbc nml. pt informed of his radiology findings. all remaining ros reviewed and are negative. Problem List Medical Problems: (1) Pneumonia Status: Acute Objective Vital Signs Date Time Temp Pulse Resp B/P (MAP) Pulse Ox O2 Delivery O2 Flow Rate FiO2 01/22/18 08:30 Room Air 01/22/18 07:23 36.5 79 18 132/95 (107) 93 Room Air 01/22/18 00:00 Room Air 01/21/18 23:15 36.8 99 16 143/86 (105) 93 Room Air 01/21/18 16:32 36.7 97 18 134/97 (109) 95 Room Air 01/21/18 16:00 Room Air 01/21/18 15:53 36.7 94 18 131/95 (107) 96 Room Air 01/21/18 13:00 36.7 83 18 136/88 (104) 96 Room Air 01/21/18 12:06 36.7 85 16 129/92 (104) 95 Room Air 01/21/18 11:15 36.6 90 18 114/85 (95) 92 Room Air 01/21/18 10:45 36.6 85 18 108/79 (89) 97 Room Air 01/21/18 10:30 36.4 95 18 125/86 (99) 91 Room Air Physical Exam General Appearance: WD/WN, no apparent distress Eyes: normal inspection, EOMI Neck: supple Respiratory/Chest: lungs clear, normal breath sounds, no respiratory distress Cardiovascular: regular rate, rhythm, no edema, no murmur Abdomen: non tender, soft Extremities: non-tender, no pedal edema Neurologic/Psychiatric: alert, oriented x 3 Skin: normal color Laboratory Results Item Value Date Time Blood Culture - Preliminary Resulted 01/19/18 1457 Blood Staph. Aureus Mrsa Blood Culture - Preliminary Resulted 01/19/18 1456 Blood Staphylococcus Aureus Blood Culture - Final Complete 01/17/18 1534 Blood Staph. Aureus Mrsa Blood Culture - Final Complete 01/17/18 1445 Blood Staph. Aureus Mrsa Blood Culture - Final Complete 01/16/18 1425 Blood Staph. Aureus Mrsa Blood Culture - Final Complete 01/16/18 1408 Blood Staph. Aureus Mrsa C.difficile Toxin B Gene (PCR) - Final Complete 01/17/18 1358 Stool Positive for C. difficile toxin B gene Last 24 Hours Test 01/22/18 06:35 Creatinine 1.29 mg/dl Est Creatinine Clear Calc Drug Dose 76.5 ml/min Estimated GFR () 73.9 Estimated GFR (Non- 63.8 Assessment and Plan (1) MRSA (methicillin resistant Staphylococcus aureus) septicemia Assessment & Plan: findings consistent with right sided IE in pt with IVDA and + UDS on admission. Repeat cultures pending, follow results. He is not a candidate for picc with active drug use. We did discuss ct findings and need for prolonged IV abx, 6 weeks from first negative culture (all cultures + to date, 01/21 pending). He understands need for treatment, would like to receive treatment at home, If so potential to use [facility] at [facility] as he can not have picc at home vs placement. he states he is to travel to [place] for one week on 02/08. This may need to be postponed. will follow. (2) Septic pulmonary embolism (3) C. difficile colitis Assessment & Plan: continue po vanco.
[2018-01-22 15:21] VITALS: BP 133/88; PULSE 96; TEMP 36.7; O2SAT 94
--- NOTE | 2018-01-22 17:58 | Progress Note ---
Internal Med Progress Note Date of Service: Jan 22, 2018. Provider Documentation: SUBJECTIVE: resting comfortably denies any pain afebrile eating ok no diarrhea no sob OBJECTIVE: Vital Signs-as noted below Exam: General-alert and oriented. Not in distress ENT-normal hearing. Neck-No neck masses Lungs-CTA b/l no wheezing or crackles Heart-S1 and S2 heard regular rate and rhythm no murmurs Abdomen-soft Bowels sounds present non tender no distension Extremities-no edema no erythema Musculoskeletal no spinal tenderness Neuro-alert and oriented moves extremities Lab data as noted below. ASSESSMENT & PLAN: 52-year-old male with history of IV drug use presents to the ER with a history of abdominal pain nausea vomiting and diarrhea for 1 week.Found to have persistent bacteremia 1. Bacteremia secondary to MRSA- was on IV vancomycin. ID stopped empiric Zosyn and vanco was changed to iv daptomycin.. Third set of blood cultures were positive GPC's 2 out of 2 bottles. AB negative for vegetations. CT chest showing multilobar consolidative opacities. MRI spine no discitis.Plan for iv daptomycin for now as per ID. to f/.u repeat blood cx.Type of abx and duration as per ID 2. Diarrhea secondary to C. difficile infection-. Continue vancomycin p.o. 3. Bacteriuria-likely secondary to bacteremia patient. abx as above. 5. hypomagnesemia-likely secondary to GI losses-persistent, to continue supplemental magnesium. resolved 7. Hepatitis C virus-patient reports spontaneous clearance. Viral load is pending. 8. History of IV drug use-on Suboxone, dosage was confirmed with outpatient clinic by . HIV is negative. AB no vegetations 9. Anemia-likely related to dilution from IV fluids given his admission. will monitor labs.. DVT prophylaxis-Lovenox Full code Disposition-to be determined. social service for d/c planning Vital Signs: Date Time Temp Pulse Resp B/P (MAP) Pulse Ox O2 Delivery O2 Flow Rate FiO2 01/22/18 16:00 Room Air 01/22/18 15:21 36.7 96 18 133/88 (103) 94 Room Air 01/22/18 08:30 Room Air 01/22/18 07:23 36.5 79 18 132/95 (107) 93 Room Air 01/22/18 00:00 Room Air 01/21/18 23:15 36.8 99 16 143/86 (105) 93 Room Air Lab Results: Results Past 24 Hours Test 01/22/18 06:35 Range/Units Creatinine 1.29 0.60-1.40 mg/dl Est Creatinine Clear Calc Drug Dose 76.5 ml/min Estimated GFR () 73.9 Estimated GFR (Non- 63.8
[2018-01-22 23:41] VITALS: BP 126/85; PULSE 99; TEMP 36.5; O2SAT 94
[2018-01-23] MEDS: RASPBERRY SYRUP 5 ML UDP PO SCH ×5 (00:12→22:40)
[2018-01-23] MEDS: VANCOMYCIN HCL 125 MG/2.5ML SOLN PO SCH ×5 (00:12→22:40)
[2018-01-23] MEDS: ACETAMINOPHEN 325 MG TAB PO PRN ×2 (00:13→20:28)
[2018-01-23 06:57] VITALS: BP 125/90; PULSE 85; TEMP 36.5; O2SAT 95
[2018-01-23] MEDS: BUPRENORPHINE/NALOXONE 8/2 MG TAB PO SCH ×2 (10:24→14:09)
[2018-01-23] MEDS: MULTIVITAMIN TAB PO SCH (10:24)
[2018-01-23] MEDS: PANTOprazole SOD 40 MG TAB PO SCH ×2 (10:24→20:28)
[2018-01-23] MEDS: MAGNESIUM OXIDE 400 MG TAB PO SCH ×2 (10:24→20:28)
[2018-01-23] MEDS: DAPTOmycin IV 500 MG in SYRINGE 0 ML IV SCH (10:25)
[2018-01-23] MEDS: ENOXAPARIN 40 MG/0.4 ML SYR SQ SCH (10:26)
--- NOTE | 2018-01-23 10:42 | Progress Note ---
Subjective Date of Service: Jan 23, 2018. Subjective pt resting comfortably, tolerating abx. remains on dapto. 01/21 cultures ngtd x 2. All previous cultures with MRSA. found to have septic pulm emboli on ct chest , AB negative. afebrile. no am labs. no cp. breathing comfortable. tolerating abx. Problem List Medical Problems: (1) Pneumonia Status: Acute Objective Vital Signs Date Time Temp Pulse Resp B/P (MAP) Pulse Ox O2 Delivery O2 Flow Rate FiO2 01/23/18 06:57 36.5 85 16 125/90 (102) 95 Room Air 01/23/18 00:32 Room Air 01/22/18 23:41 36.5 99 16 126/85 (99) 94 Room Air 01/22/18 16:00 Room Air 01/22/18 15:21 36.7 96 18 133/88 (103) 94 Room Air Physical Exam General Appearance: WD/WN, no apparent distress Eyes: normal inspection Neck: supple Respiratory/Chest: normal breath sounds, no respiratory distress Cardiovascular: regular rate, rhythm, no edema Abdomen: soft Extremities: no pedal edema Skin: normal color Laboratory Results Item Value Date Time Blood Culture - Preliminary Resulted 01/21/18 1200 Blood NO GROWTH TO DATE. Blood Culture - Preliminary Resulted 01/21/18 1159 Blood NO GROWTH TO DATE. Blood Culture - Preliminary Resulted 01/19/18 1457 Blood Staph. Aureus Mrsa Blood Culture - Final Complete 01/17/18 1534 Blood Staph. Aureus Mrsa Blood Culture - Final Complete 01/16/18 1408 Blood Staph. Aureus Mrsa Assessment and Plan (1) MRSA (methicillin resistant Staphylococcus aureus) septicemia Assessment & Plan: findings consistent with right sided IE in pt with IVDA and + UDS on admission. Repeat cultures negative so far, follow results. He is not a candidate for picc with active drug use. We did discuss ct findings and need for prolonged IV abx, 6 weeks from first negative culture (all cultures + to date, 01/21 negative so far). He understands need for treatment, would like to receive treatment at home, If so potential to use [facility] at [facility] as he can not have picc at home vs placement. he states he is to travel to [place] for one week on 02/08. This may need to be postponed. will follow. (2) Septic pulmonary embolism (3) C. difficile colitis
[2018-01-23 15:24] VITALS: BP 118/79; PULSE 98; TEMP 36.6; O2SAT 95
--- NOTE | 2018-01-23 17:29 | Progress Note ---
Internal Med Progress Note Date of Service: Jan 23, 2018. Provider Documentation: SUBJECTIVE: resting comfortably afebrile no diarrhea eating ok no sob or chest pain no nausea OBJECTIVE: Vital Signs-as noted below Exam: General-alert and oriented. Not in distress ENT-normal hearing. Neck-No neck masses Lungs-CTA b/l no wheezing or crackles Heart-S1 and S2 heard regular rate and rhythm no murmurs Abdomen-soft Bowels sounds present non tender no distension Extremities-no edema no erythema Musculoskeletal no spinal tenderness Neuro-alert and oriented moves extremities Lab data as noted below. ASSESSMENT & PLAN: 52-year-old male with history of IV drug use presents to the ER with a history of abdominal pain nausea vomiting and diarrhea for 1 week.Found to have persistent bacteremia 1. Bacteremia secondary to MRSA- was on IV vancomycin. ID stopped empiric Zosyn and vanco was changed to iv daptomycin.. Third set of blood cultures were positive GPC's 2 out of 2 bottles. AB negative for vegetations. CT chest showing multilobar consolidative opacities.Septic pulmonary emboli. MRI spine no discitis.Plan for iv daptomycin for now as per ID. repeat blood from were negative.. As patient has hx of iv drug abuse discharging home with PICC line may not be ideal.Patient likes to go home.ID recommends two doses of iv Dalvanche if insurance approves. 2. Diarrhea secondary to C. difficile infection-. Continue vancomycin p.o.no complaints 3. Bacteriuria-likely secondary to bacteremia patient. abx as above.stable 5. hypomagnesemia-likely secondary to GI losses-persistent, to continue supplemental magnesium. resolved 7. Hepatitis C virus-patient reports spontaneous clearance. Viral load not detected 8. History of IV drug use-on Suboxone, dosage was confirmed with outpatient clinic by . HIV is negative. AB no vegetations 9. Anemia-likely related to dilution from IV fluids given his admission. will monitor labs.. DVT prophylaxis-Lovenox Full code Disposition-to be determined. social service for d/c planning Vital Signs: Date Time Temp Pulse Resp B/P (MAP) Pulse Ox O2 Delivery O2 Flow Rate FiO2 01/24/18 07:27 36.6 90 18 121/81 (94) 96 Room Air 01/23/18 23:20 Room Air 01/23/18 23:19 36.9 93 18 128/97 (107) 93 Room Air 01/23/18 16:00 Room Air 01/23/18 15:24 36.6 98 20 118/79 (92) 95 Room Air 01/23/18 08:00 Room Air
[2018-01-23 23:19] VITALS: BP 128/97; PULSE 93; TEMP 36.9; O2SAT 93
[2018-01-24] MEDS: VANCOMYCIN HCL 125 MG/2.5ML SOLN PO SCH ×4 (05:25→23:24)
[2018-01-24] MEDS: RASPBERRY SYRUP 5 ML UDP PO SCH ×4 (05:26→23:24)
[2018-01-24 07:27] VITALS: BP 121/81; PULSE 90; TEMP 36.6; O2SAT 96
[2018-01-24] MEDS: MAGNESIUM OXIDE 400 MG TAB PO SCH ×2 (09:01→20:14)
[2018-01-24] MEDS: MULTIVITAMIN TAB PO SCH (09:01)
[2018-01-24] MEDS: PANTOprazole SOD 40 MG TAB PO SCH ×2 (09:01→20:14)
[2018-01-24] MEDS: BUPRENORPHINE/NALOXONE 8/2 MG TAB PO SCH ×2 (09:02→15:30)
[2018-01-24] MEDS: ENOXAPARIN 40 MG/0.4 ML SYR SQ SCH (09:03)
[2018-01-24] MEDS: DAPTOmycin IV 500 MG in SYRINGE 0 ML IV SCH (09:06)
--- NOTE | 2018-01-24 11:13 | Progress Note ---
Subjective Date of Service: Jan 24, 2018. Subjective Pt evaluation today including: conversation w/ patient, physical exam, chart review, lab review pt doing well, eager to go home. most recent cultures negative to date. agreeable to IV [facility] at [facility]. awaiting auth. he denies cp, sob, cough, f/c. no n/v/d. remains on dapto, tolerating well. States he needs to be d/c home before his suboxone clinic closes as he will be without any suboxone until saturday when it reopens, does not know what time it closes today. all remaining ros reviewed and are negative. Problem List Medical Problems: (1) Pneumonia Status: Acute Objective Vital Signs Date Time Temp Pulse Resp B/P (MAP) Pulse Ox O2 Delivery O2 Flow Rate FiO2 01/24/18 09:00 Room Air 01/24/18 07:27 36.6 90 18 121/81 (94) 96 Room Air 01/23/18 23:20 Room Air 01/23/18 23:19 36.9 93 18 128/97 (107) 93 Room Air 01/23/18 16:00 Room Air 01/23/18 15:24 36.6 98 20 118/79 (92) 95 Room Air Physical Exam General Appearance: WD/WN, no apparent distress Eyes: normal inspection, EOMI Neck: supple Respiratory/Chest: lungs clear, normal breath sounds, no respiratory distress Cardiovascular: regular rate, rhythm, no edema Abdomen: soft Extremities: non-tender, no pedal edema Neurologic/Psychiatric: alert, oriented x 3 Skin: normal color Laboratory Results Item Value Date Time Blood Culture - Preliminary Resulted 01/21/18 1200 Blood NO GROWTH TO DATE. Blood Culture - Preliminary Resulted 01/21/18 1159 Blood NO GROWTH TO DATE. Assessment and Plan (1) MRSA (methicillin resistant Staphylococcus aureus) septicemia Assessment & Plan: findings consistent with right sided IE in pt with IVDA and + UDS on admission. Repeat cultures negative so far, follow results. He is not a candidate for picc with active drug use. We did discuss ct findings and need for prolonged IV abx, 6 weeks from first negative culture (all cultures + to date, 01/21 negative so far). He understands need for treatment, would like to receive treatment at home, If so potential to use [facility] at [facility] as he can not have picc at home vs placement. he states he is to travel to [place] for one week on 02/08. This may need to be postponed. will follow. awaiting [employer] approval. (2) Septic pulmonary embolism (3) C. difficile colitis Assessment & Plan: continue po vanco, would give 14 days total.
[2018-01-24 15:34] VITALS: BP 102/75; PULSE 92; TEMP 36.6; O2SAT 95
--- NOTE | 2018-01-24 15:59 | Progress Note ---
Internal Med Progress Note Date of Service: Jan 24, 2018. Provider Documentation: SUBJECTIVE: resting comfortably no pain no sob afebrile no diarrhea no complaints OBJECTIVE: Vital Signs-as noted below Exam: General-alert and oriented. Not in distress ENT-normal hearing. Neck-No neck masses Lungs-CTA b/l no wheezing or crackles Heart-S1 and S2 heard regular rate and rhythm no murmurs Abdomen-soft Bowels sounds present non tender no distension Extremities-no edema no erythema Musculoskeletal no spinal tenderness Neuro-alert and oriented moves extremities Lab data as noted below. ASSESSMENT & PLAN: 52-year-old male with history of IV drug use presents to the ER with a history of abdominal pain nausea vomiting and diarrhea for 1 week.Found to have persistent bacteremia 1. Bacteremia secondary to MRSA- was on IV vancomycin. ID stopped empiric Zosyn and vanco was changed to iv daptomycin.. Third set of blood cultures were positive GPC's 2 out of 2 bottles. AB negative for vegetations. CT chest showing multilobar consolidative opacities.Septic pulmonary emboli. MRI spine no discitis.Plan for iv daptomycin for now as per ID. repeat blood from were negative.. As patient has hx of iv drug abuse discharging home with PICC line may not be ideal.Patient likes to go home.ID recommends two doses of iv Dalvanche if insurance approves.Awaiting insurance approval 2. Diarrhea secondary to C. difficile infection-. Continue vancomycin p.o.no complaints total 14 days Stable conditions: 3. Bacteriuria-likely secondary to bacteremia patient. abx as above.stable 5. hypomagnesemia-likely secondary to GI losses-persistent, to continue supplemental magnesium. resolved 7. Hepatitis C virus-patient reports spontaneous clearance. Viral load not detected 8. History of IV drug use-on Suboxone, dosage was confirmed with outpatient clinic by . HIV is negative. AB no vegetations 9. Anemia-likely related to dilution from IV fluids given his admission. will monitor labs.. DVT prophylaxis-Lovenox Full code Disposition-to be determined. social service for d/c planning Vital Signs: Date Time Temp Pulse Resp B/P (MAP) Pulse Ox O2 Delivery O2 Flow Rate FiO2 01/24/18 15:34 36.6 92 18 102/75 (84) 95 Room Air 01/24/18 09:00 Room Air 01/24/18 07:27 36.6 90 18 121/81 (94) 96 Room Air 01/23/18 23:20 Room Air 01/23/18 23:19 36.9 93 18 128/97 (107) 93 Room Air 01/23/18 16:00 Room Air
[2018-01-24] MEDS: ACETAMINOPHEN 325 MG TAB PO PRN (17:09)
[2018-01-24 23:53] VITALS: BP 123/80; PULSE 95; TEMP 36.5; O2SAT 95
[2018-01-25] MEDS: VANCOMYCIN HCL 125 MG/2.5ML SOLN PO SCH ×4 (05:44→23:52)
[2018-01-25] MEDS: RASPBERRY SYRUP 5 ML UDP PO SCH ×4 (05:44→23:52)
[2018-01-25 06:58] VITALS: BP 124/86; PULSE 101; TEMP 36.6; O2SAT 96
[2018-01-25 09:00] VITALS: O2SAT 96
[2018-01-25] MEDS: MAGNESIUM OXIDE 400 MG TAB PO SCH ×2 (09:21→20:40)
[2018-01-25] MEDS: MULTIVITAMIN TAB PO SCH (09:21)
[2018-01-25] MEDS: PANTOprazole SOD 40 MG TAB PO SCH ×2 (09:22→20:41)
[2018-01-25] MEDS: BUPRENORPHINE/NALOXONE 8/2 MG TAB PO SCH ×2 (09:22→16:57)
[2018-01-25] MEDS: ENOXAPARIN 40 MG/0.4 ML SYR SQ SCH (09:22)
[2018-01-25] MEDS: DAPTOmycin IV 500 MG in SYRINGE 0 ML IV SCH (11:04)
[2018-01-25 14:56] VITALS: BP 122/88; PULSE 89; TEMP 36.6; O2SAT 91
[2018-01-25 16:00] VITALS: O2SAT 96
--- NOTE | 2018-01-25 16:37 | Progress Note ---
Internal Med Progress Note Date of Service: Jan 25, 2018. Provider Documentation: SUBJECTIVE: resting comfortably eating fine afebrile no complaints no sob no diarrhea OBJECTIVE: Vital Signs-as noted below Exam: General-alert and oriented. Not in distress ENT-normal hearing. Neck-No neck masses Lungs-CTA b/l no wheezing or crackles Heart-S1 and S2 heard regular rate and rhythm no murmurs Abdomen-soft Bowels sounds present non tender no distension Extremities-no edema no erythema Musculoskeletal no spinal tenderness Neuro-alert and oriented moves extremities Lab data as noted below. ASSESSMENT & PLAN: 52-year-old male with history of IV drug use presents to the ER with a history of abdominal pain nausea vomiting and diarrhea for 1 week.Found to have persistent bacteremia 1. Bacteremia secondary to MRSA- was on IV vancomycin. ID stopped empiric Zosyn and vanco was changed to iv daptomycin.. Third set of blood cultures were positive GPC's 2 out of 2 bottles. AB negative for vegetations. CT chest showing multilobar consolidative opacities.Septic pulmonary emboli. MRI spine no discitis.Plan for iv daptomycin for now as per ID. repeat blood from were negative.. As patient has hx of iv drug abuse discharging home with PICC line may not be ideal.Patient likes to go home.ID recommends two doses of iv Dalvanche if insurance approves.Awaiting insurance approval. Stable 2. Diarrhea secondary to C. difficile infection-. Continue vancomycin p.o.no complaints total 14 days Stable conditions: 3. Bacteriuria-likely secondary to bacteremia patient. abx as above.stable 5. hypomagnesemia-likely secondary to GI losses-persistent, to continue supplemental magnesium. resolved 7. Hepatitis C virus-patient reports spontaneous clearance. Viral load not detected 8. History of IV drug use-on Suboxone, dosage was confirmed with outpatient clinic by . HIV is negative. AB no vegetations 9. Anemia-likely related to dilution from IV fluids given his admission. will monitor labs.. DVT prophylaxis-Lovenox Full code Disposition-to be determined. social service for d/c planning Vital Signs: Date Time Temp Pulse Resp B/P (MAP) Pulse Ox O2 Delivery O2 Flow Rate FiO2 01/25/18 14:56 36.6 89 20 122/88 (99) 91 01/25/18 09:00 96 Room Air 01/25/18 06:58 36.6 101 20 124/86 (99) 96 Room Air 01/24/18 23:59 Room Air 01/24/18 23:53 36.5 95 16 123/80 (94) 95 Room Air
[2018-01-25 23:23] VITALS: BP 131/84; PULSE 93; TEMP 36.7; O2SAT 95
[2018-01-26] MEDS: RASPBERRY SYRUP 5 ML UDP PO SCH ×3 (06:20→16:45)
[2018-01-26] MEDS: VANCOMYCIN HCL 125 MG/2.5ML SOLN PO SCH ×3 (06:20→16:44)
[2018-01-26 07:22] VITALS: BP 127/81; PULSE 82; TEMP 36.5; O2SAT 96
[2018-01-26 08:00] VITALS: O2SAT 96
[2018-01-26] MEDS: MAGNESIUM OXIDE 400 MG TAB PO SCH ×2 (08:46→20:13)
[2018-01-26] MEDS: MULTIVITAMIN TAB PO SCH (08:47)
[2018-01-26] MEDS: PANTOprazole SOD 40 MG TAB PO SCH ×2 (08:47→20:13)
[2018-01-26] MEDS: ENOXAPARIN 40 MG/0.4 ML SYR SQ SCH (08:48)
[2018-01-26] MEDS: BUPRENORPHINE/NALOXONE 8/2 MG TAB PO SCH ×2 (08:50→15:17)
[2018-01-26] MEDS: DAPTOmycin IV 500 MG in SYRINGE 0 ML IV SCH (08:50)
[2018-01-26 14:27] VITALS: BP 115/87; PULSE 92; TEMP 36.6; O2SAT 96
--- NOTE | 2018-01-26 16:08 | Progress Note ---
Internal Med Progress Note Date of Service: Jan 26, 2018. Provider Documentation: SUBJECTIVE: no fevers no cough no pain no sob no nausea no diarrhea OBJECTIVE: Vital Signs-as noted below Exam: General-alert and oriented. Not in distress ENT-normal hearing. Neck-No neck masses Lungs-CTA b/l no wheezing or crackles Heart-S1 and S2 heard regular rate and rhythm no murmurs Abdomen-soft Bowels sounds present non tender no distension Extremities-no edema no erythema Musculoskeletal no spinal tenderness Neuro-alert and oriented moves extremities Lab data as noted below. ASSESSMENT & PLAN: 52-year-old male with history of IV drug use presents to the ER with a history of abdominal pain nausea vomiting and diarrhea for 1 week.Found to have persistent bacteremia 1. Bacteremia secondary to MRSA- was on IV vancomycin. ID stopped empiric Zosyn and vanco was changed to iv daptomycin.. Third set of blood cultures were positive GPC's 2 out of 2 bottles. AB negative for vegetations. CT chest showing multilobar consolidative opacities.Septic pulmonary emboli. MRI spine no discitis.Plan for iv daptomycin for now as per ID. repeat blood from were negative.. As patient has hx of iv drug abuse discharging home with PICC line may not be ideal.Patient likes to go home.ID recommends two doses of iv Dalvanche if insurance approves.Awaiting insurance approval. Stable currently 2. Diarrhea secondary to C. difficile infection-. Continue vancomycin p.o.no complaints total 14 days. stable Stable conditions: 3. Bacteriuria-likely secondary to bacteremia patient. abx as above.stable 5. hypomagnesemia-likely secondary to GI losses-persistent, to continue supplemental magnesium. resolved 7. Hepatitis C virus-patient reports spontaneous clearance. Viral load not detected 8. History of IV drug use-on Suboxone, dosage was confirmed with outpatient clinic by . HIV is negative. AB no vegetations 9. Anemia-likely related to dilution from IV fluids given his admission. will monitor labs.. DVT prophylaxis-Lovenox Full code Disposition-to be determined. social service for d/c planning Vital Signs: Date Time Temp Pulse Resp B/P (MAP) Pulse Ox O2 Delivery O2 Flow Rate FiO2 01/26/18 14:27 36.6 92 20 115/87 (96) 96 Room Air 01/26/18 08:00 96 Room Air 01/26/18 07:22 36.5 82 20 127/81 (96) 96 01/26/18 00:00 Room Air 01/25/18 23:23 36.7 93 20 131/84 (100) 95 Room Air 01/25/18 20:00 Room Air
[2018-01-26] MEDS: ACETAMINOPHEN 325 MG TAB PO PRN (20:14)
[2018-01-26 23:32] VITALS: BP 122/84; PULSE 89; TEMP 36.7; O2SAT 96
[2018-01-27] MEDS: RASPBERRY SYRUP 5 ML UDP PO SCH ×4 (00:02→17:26)
[2018-01-27] MEDS: VANCOMYCIN HCL 125 MG/2.5ML SOLN PO SCH ×4 (00:02→17:26)
[2018-01-27 07:44] VITALS: BP 136/92; PULSE 88; TEMP 36.4; O2SAT 96
[2018-01-27] MEDS: MULTIVITAMIN TAB PO SCH (07:55)
[2018-01-27] MEDS: MAGNESIUM OXIDE 400 MG TAB PO SCH (07:55)
[2018-01-27] MEDS: PANTOprazole SOD 40 MG TAB PO SCH (07:55)
[2018-01-27] MEDS: ENOXAPARIN 40 MG/0.4 ML SYR SQ SCH (07:55)
[2018-01-27 08:00] VITALS: O2SAT 96
[2018-01-27] MEDS: BUPRENORPHINE/NALOXONE 8/2 MG TAB PO SCH ×2 (08:14→15:29)
[2018-01-27] MEDS: DAPTOmycin IV 500 MG in SYRINGE 0 ML IV SCH (08:14)
--- NOTE | 2018-01-27 10:46 | Progress Note ---
Subjective Date of Service: Jan 27, 2018. Subjective 01/21 cultures negative and final. Pt remains in hospital awaiting insurance authorization for Dalvance at [facility]. spoke with nursing, still pending as of this am. Also, was worried that he would not have suboxone over weekend, so remains inpt. afebrile. Problem List Medical Problems: (1) Pneumonia Status: Acute Objective Vital Signs Date Time Temp Pulse Resp B/P (MAP) Pulse Ox O2 Delivery O2 Flow Rate FiO2 01/27/18 07:44 36.4 88 18 136/92 (107) 96 Room Air 01/27/18 00:48 Room Air 01/26/18 23:32 36.7 89 18 122/84 (97) 96 Room Air 01/26/18 20:00 Room Air 01/26/18 14:27 36.6 92 20 115/87 (96) 96 Room Air Laboratory Results Item Value Date Time Blood Culture - Final Complete 01/21/18 1200 Blood NO GROWTH Blood Culture - Final Complete 01/21/18 1159 Blood NO GROWTH Assessment and Plan (1) MRSA (methicillin resistant Staphylococcus aureus) septicemia Assessment & Plan: findings consistent with right sided IE in pt with IVDA and + UDS on admission. Repeat cultures negative so far, follow results. He is not a candidate for picc with active drug use. We did discuss ct findings and need for prolonged IV abx, 6 weeks from first negative culture (all cultures + to date, 01/21 negative and final). He understands need for treatment, would like to receive treatment at home, If so potential to use [facility] at [facility] as he can not have picc at home vs placement. awaiting dalvance approval. (2) Septic pulmonary embolism (3) C. difficile colitis
[2018-01-27 15:04] VITALS: BP 123/85; PULSE 88; TEMP 36.3; O2SAT 95
[2018-01-27] MEDS ORDERED: VANC5CAP PO (16:43)
--- NOTE | 2018-01-27 16:47 | Discharge Instructions ---
Discharge Instructions Date of Service Jan 27, 2018. Admission Reason for Admission: Nausea Vomiting And Diarrhea Discharge Discharge Diagnosis / Problem: c diff. bacteremia. septic pulmonary emboli Discharge Goals Goal(s): Decrease discomfort, Improve function Activity Recommendations Activity Limitations: resume your previous activity . Instructions / Follow-Up Instructions / Follow-Up FOLLOWUP WITH FAMILY DOCTOR ON January AT 2:50PM. FOLLOWUP WITH INFECTIOUS DISEASE IN 3-[address] [address] Get Directions . TO GO TO [facility] TOMORROW January AT 1PM TO GET IV ANTIBIOTIC DALVANCE AND NEXT TWO DOSE 2 WEEKS LATER. TRY TO AVOID [facility]PC USE OF NSAID'S LIKE DICLOFENAC, IBUPROFEN, MOTRIN, ALEVE , MELOXICAM THEY CAN CAUSE GASTRIC ULCERS, KIDNEY FAILURE AND HEART ATTACKS Current Hospital Diet Patient's current hospital diet: Regular Diet Discharge Diet Recommended Diet: Regular Diet Procedures Procedures Performed: AB Pending Studies Studies pending at discharge: no Medical Emergencies . Who to Call and When: Medical Emergencies: If at any time you feel your situation is an emergency, please call 911 immediately. . Non-Emergent Contact Non-Emergency issues call your: Primary Care Provider . . "Provider Documentation" section prepared by Deon Cotton. .
[2018-01-27] MEDS ORDERED: LCTX PO (16:50)
[2018-01-27 17:05] VITALS: BP 123/85; PULSE 88; TEMP 36.3; O2SAT 95
--- NOTE | 2018-01-27 19:16 | Progress Note ---
Internal Med Progress Note Date of Service: Jan 27, 2018. Provider Documentation: SUBJECTIVE: resting comfortably no diarrhea no chest pain or sob ok for discharge OBJECTIVE: Vital Signs-as noted below Exam: General-alert and oriented. Not in distress ENT-normal hearing. Neck-No neck masses Lungs-CTA b/l no wheezing or crackles Heart-S1 and S2 heard regular rate and rhythm no murmurs Abdomen-soft Bowels sounds present non tender no distension Extremities-no edema no erythema Musculoskeletal no spinal tenderness Neuro-alert and oriented moves extremities Lab data as noted below. ASSESSMENT & PLAN: 52-year-old male with history of IV drug use presents to the ER with a history of abdominal pain nausea vomiting and diarrhea for 1 week.Found to have persistent bacteremia 1. Bacteremia secondary to MRSA- was on IV vancomycin. ID stopped empiric Zosyn and vanco was changed to iv daptomycin.. Third set of blood cultures were positive GPC's 2 out of 2 bottles. AB negative for vegetations. CT chest showing multilobar consolidative opacities.Septic pulmonary emboli. MRI spine no discitis.Plan for iv daptomycin for now as per ID. repeat blood from were negative.. As patient has hx of iv drug abuse discharging home with PICC line may not be ideal.Patient likes to go home.ID recommends two doses of iv Dalvanche if insurance approves.Awaiting insurance approval.insurance approve Dalmane. patient will get one dose tomorrow in [facility] and next dose 2 weeks later 2. Diarrhea secondary to C. difficile infection-. Continue vancomycin p.o.no complaints total 14 days. stable 3. Bacteriuria-likely secondary to bacteremia patient. abx as above.stable 5. hypomagnesemia-likely secondary to GI losses-persistent, to continue supplemental magnesium. resolved 7. Hepatitis C virus-patient reports spontaneous clearance. Viral load not detected 8. History of IV drug use-on Suboxone, dosage was confirmed with outpatient clinic by . HIV is negative. AB no vegetations 9. Anemia-likely related to dilution from IV fluids given his admission. will monitor labs.. discharged home Vital Signs: Date Time Temp Pulse Resp B/P (MAP) Pulse Ox O2 Delivery O2 Flow Rate FiO2 01/27/18 17:05 36.3 88 20 95 Room Air 01/27/18 15:30 Room Air 01/27/18 15:04 36.3 88 20 123/85 (98) 95 Room Air 01/27/18 08:00 96 Room Air 01/27/18 07:44 36.4 88 18 136/92 (107) 96 Room Air 01/27/18 00:48 Room Air 01/26/18 23:32 36.7 89 18 122/84 (97) 96 Room Air 01/26/18 20:00 Room Air
--- NOTE | 2018-01-27 19:43 | Discharge Summary ---
Discharge Summary Date of Service Jan 27, 2018. Discharge Summary Admission Date: Jan 16, 2018 at 14:28 Discharge Date: Jan 27, 2018 Discharge Disposition: Home Principal Diagnosis: C DIFF BACTEREMIA SEPTIC PULMONARY EMBOLI Secondary Diagnoses/Problems: (1) Chronic hepatitis C Permanent Comment: spontaneously cleared 10/2017 Status: Chronic (2) Depression Status: Chronic (3) History of MRSA infection of lungs Status: Chronic (4) History of septic embolism Status: Chronic (5) History of SIADH Status: Chronic (6) Nocturnal hypoxia Status: Chronic (7) Thyroid nodule Status: Chronic Procedures: ABD/CHEST XRAY: Scattered nonspecific air-fluid levels. No evidence of bowel obstruction. No evidence of free air. CT ABD/PELVIS: 1. There are no acute infectious or inflammatory findings in the abdomen or pelvis. 2. Tree-in-bud airspace opacities are noted at the left lung base. Correlate clinically for evidence of an infectious/inflammatory pneumonitis. 3. Hepatomegaly and hepatic steatosis. 4. Splenomegaly. THORACIC SPINE MRI: 1. No evidence of discitis osteolysis. 2. Mild degenerative changes without evidence of significant neural foraminal or spinal canal narrowing. 3. Rim-enhancing lesion at the posterior basal right lower lobe as seen on recent chest CT. Morphology raises concern for septic embolus. LUMBAR SPINE MRI: 1. No acute abnormality identified involving the lumbar spine. No abnormal enhancement or evidence of discitis/osteomyelitis. 2. Mild discogenic degenerative changes and facet arthrosis as above causing multilevel mild neuroforaminal stenosis. No high-grade central canal narrowing. CERVICAL SPINE MRI: 1. No evidence of discitis osteomyelitis. 2. Multilevel degenerative changes most significant at C5-6 and C6-7, where there is neural foraminal narrowing as above. CHEST CT:1. Multisegmental multilobar distribution of randomly and mostly peripheral nodular and patchy consolidative opacities as above suggests infectious or inflammatory pneumonitis with septic emboli an additional differential consideration. Follow-up imaging to document resolution is recommended. 2. Mild mediastinal and right hilar adenopathy, improved from comparison study 01/07/2017 favors reactive process. 3. Emphysema. 4. Prior granulomatous disease. ECHO: * There is no evidence of a mass or vegetation. This does not rule out endocarditis. * AB: * This was a technically limited study as the right heart was not well visualized. The pulmonic valve was not visualized. Limited imaging of the tricuspid valve suggests no vegetations. The left heart was well visualized and the mitral and aortic valves were free of vegetations or other findings that would suggest endocarditis. Consultations: ID- CARDIOLOGY- Medication Reconciliation New Medications: Lactobacillus Acidophilus (Lactinex) Tab 2 TAB PO BID for 30 Days, TAB Vancomycin Hcl (Vancomycin) 125 Mg Cap 125 MG PO QID for 4 Days Continued Medications: Buprenorphine Hcl-Naloxone Hcl (Suboxone 8-2 Mg) 1 Mis Mis 1 TAB PO BID Bupropion (Wellbutrin Sr) 150 Mg Ertab 150 MG PO BID, TAB Docusate Sodium (Colace) 100 Mg Cap 1 CAP PO BID, CAP Multivitamin (Multivitamin) Tab 1 TAB PO DAILY, TAB Omeprazole (Omeprazole) 20 Mg Tab 20 MG PO BID Triamterene/Hctz (Triamterene/Hctz 37.5-25MG) 1 Tab Tab 1 TAB PO DAILY, TAB Discontinued Medications: Diclofenac (Voltaren) 75 Mg Tabcr 75 MG PO BIDM, TAB WITH FOOD Prednisone Tab (Prednisone) 10 Mg Tab 10 MG PO, TAB finishing a taper - has 2 tabs x 1 day and 1 tab x 2 days left Admission Information HPI (per Admitting provider): 52-year-old male who presents to the ER with a chief complaint of nausea, vomiting, and diarrhea. Patient reports he has not been feeling well for approximately the past 1 week. He reports initially when he describes as flulike symptoms. He had generalized body aches with a mild headache. He reports symptoms would come and go. For the past 2 days however he has had persistent nausea, vomiting, and diarrhea. He denies any hematemesis or coffee- ground emesis. No bright red bleeding per rectum or dark tarry stools. He denies fever and chills. No cough or sputum production. He denies lightheadedness, dizziness, diaphoresis, and syncopal events. He denies urinary symptoms. Of note, patient size PCP approximately 2 weeks ago for right shoulder pain. He was prescribed a prednisone taper. He reports improvement in the right shoulder pain. In the ED, patient was found to be hypokalemic with a potassium of 2.9 and AK I with a creatinine of 1.5. White blood cell count is 20 3K he was tachycardic in the 130s. Blood pressure remained stable. Lactic acid is normal. Heart rate improved with IVF. He was also given IV Vanco and Zosyn. Physical Exam (per Admitting): General Appearance: WD/WN, no apparent distress Head: normocephalic, atraumatic Eyes: normal inspection, EOMI, sclerae normal ENT: hearing grossly normal, + pertinent finding (Mucous membranes dry) Neck: supple, no JVD, trachea midline Respiratory/Chest: lungs clear, normal breath sounds, no respiratory distress Cardiovascular: no edema, normal peripheral pulses, + tachycardia (Regular rhythm) Abdomen/GI: normal bowel sounds, soft, no organomegaly, + tenderness (Mild, generalized) Back: no CVA tenderness Extremities/Musculoskelatal: normal inspection, no calf tenderness, normal capillary refill Neurologic/Psych: no motor/sensory deficits, alert, normal mood/affect, oriented x 3 Skin: normal color, warm/dry Hospital Course 52-year-old male with history of IV drug use presents to the ER with a history of abdominal pain nausea vomiting and diarrhea for 1 week.Found to have persistent bacteremia 1. Bacteremia secondary to MRSA- was on IV vancomycin. ID stopped empiric Zosyn and vanco was changed to iv daptomycin.. Third set of blood cultures were positive GPC's 2 out of 2 bottles. AB negative for vegetations. CT chest showing multilobar consolidative opacities.Septic pulmonary emboli. MRI spine no discitis.Plan for iv daptomycin for now as per ID. repeat blood from were negative.. As patient has hx of iv drug abuse discharging home with PICC line may not be ideal.Patient likes to go home.ID recommends two doses of iv Dalvanche if insurance approves.Awaiting insurance approval.insurance approve Dalmane. patient will get one dose tomorrow in [facility] and next dose 2 weeks later 2. Diarrhea secondary to C. difficile infection-. Continue vancomycin p.o.no complaints total 14 days. stable 3. Bacteriuria-likely secondary to bacteremia patient. abx as above.stable 5. hypomagnesemia-likely secondary to GI losses-persistent, to continue supplemental magnesium. resolved 7. Hepatitis C virus-patient reports spontaneous clearance. Viral load not detected 8. History of IV drug use-on Suboxone, dosage was confirmed with outpatient clinic by . HIV is negative. AB no vegetations 9. Anemia-likely related to dilution from IV fluids given his admission. will monitor labs.. discharged home Total time spent on discharge = 35MINUTES This includes examination of the patient, discharge planning, medication reconciliation, and communication with other providers. Discharge Instructions Discharge Instructions Date of Service Jan 27, 2018. Admission Reason for Admission: Nausea Vomiting And Diarrhea Discharge Discharge Diagnosis / Problem: c diff. bacteremia. septic pulmonary emboli Discharge Goals Goal(s): Decrease discomfort, Improve function Activity Recommendations Activity Limitations: resume your previous activity . Instructions / Follow-Up Instructions / Follow-Up FOLLOWUP WITH FAMILY DOCTOR ON January AT 2:50PM. FOLLOWUP WITH INFECTIOUS DISEASE IN 3-[address] [address] Get Directions . TO GO [facility] TOMORROW January AT 1PM TO GET IV ANTIBIOTIC DALVANCE AND NEXT TWO DOSE 2 WEEKS LATER. TRY TO AVOID [facility] USE OF NSAID'S LIKE DICLOFENAC, IBUPROFEN, MOTRIN, ALEVE , MELOXICAM THEY CAN CAUSE GASTRIC ULCERS, KIDNEY FAILURE AND HEART ATTACKS Current Hospital Diet Patient's current hospital diet: Regular Diet Discharge Diet Recommended Diet: Regular Diet Procedures Procedures Performed: AB Pending Studies Studies pending at discharge: no Medical Emergencies . Who to Call and When: Medical Emergencies: If at any time you feel your situation is an emergency, please call 911 immediately. .
== END 2018-01-27 18:00 | disposition home or self-care (01) | DRG 871 ==
LOC: C.EDB 12:10 → C.2T 14:28 → ENRESERV 14:58 → C.MS4W 01-18 14:15
PROVIDERS: ADMIT Family Medicine; ATTEND Internal Medicine
PROC: B24CZZ4 Ultrasonography of Pericardium, Transesophageal (ICD-10-PCS; principal; 2018-01-21 08:00)
DX: A41.02 Sepsis due to Methicillin resistant Staphylococcus aureus (principal); J18.9 Pneumonia, unspecified organism; I26.90 Septic pulmonary embolism without acute cor pulmonale; A04.72 Enterocolitis due to Clostridium difficile, not specified as recurrent; E22.2 Syndrome of inappropriate secretion of antidiuretic hormone; N39.0 Urinary tract infection, site not specified; N17.9 Acute kidney failure, unspecified; F32.9 Major depressive disorder, single episode, unspecified; D64.9 Anemia, unspecified; E83.42 Hypomagnesemia; B19.20 Unspecified viral hepatitis C without hepatic coma; E86.0 Dehydration; Z79.899 Other long term (current) drug therapy; Z79.52 Long term (current) use of systemic steroids; Z87.898 Personal history of other specified conditions; Z79.891 Long term (current) use of opiate analgesic